=== PATIENT | female | born 1950 | race Caucasian/White ===

== ENCOUNTER 2016-08-22 15:02 | Inpatient (IN) | payer MEDICARE, OTHER ==
[~2016-08-22] VITALS: Ht 157.5 cm; Wt 97.0 kg
[~2016-08-22 15:02] MED LIST: /ESOM40CA; /INSULEV; ACET65TA; ADVAIR; ALLO10TA PO; AMILORIDE; ASPI1TAB PO; BETA GLUCAN; BONIVA; CALCCHW12 OR; CALCIUM; CELL500T PO; CELLCEPT; CIPR500T3 PO; CLIN300C OR; COLA100C2; CYCL10TA PO; DEMA100T OR; DEMA20TA; DIOV160T5; DIOV160T6 PO; DIOV320T; DRIS50002 PO; DRISDOL; FERR324T5 OR; FERR325T PO; FLUO1TAB3 PO; GABA600T PO; GLUC1CAP9 PO; IMMUNOGLOBULIN; IMMUNOGLOBULIN IV; INSUDET SC; INSUH10VL SC; LEVEMIR INSULIN; MAG-TAB; META28PO PO; MULTIVIT OR; NEXI40CA PO; NOVOINJ3; POTA-77; PRED10TA2 OR; PRED1TABL PO; PRED20TA; PRED5TA PO; PREDPOW10; PROZ20CA; SUCR1SS PO; TORS100T12 PO; TYLENOL ES; VIT D; VITA10002 PO; VITA500T88 PO; VITAMIN B 12; VITMTA PO; XOPE1.252; ZANT150T; ZANT1TAB PO; ZARO2.5T OR; [UNRECOGNIZED DRUG - CODE]; [UNRECOGNIZED DRUG - OTHER]; [UNRECOGNIZED DRUG - OTHER]; amiloride PO; beta glucan OR; boniva IV; cranberry; flaxseed oil; imodium OR; levemir SQ; metamucil; omega 3
[2016-08-22] MEDS ORDERED: METOPROLOL 5 MG/5 ML VIAL As Ordered ONE (15:48)
[2016-08-22 15:52] LABS: BASO % 0.1 % (0.0-1.0); EOS % 0.1 % (0.0-3.0); LARGE UNSTAINED CELL # 0.1 K/mm3 (0.0-0.4); LARGE UNSTAINED CELL % 0.7 % (0.0-4.0); LYMPH # 0.4 K/mm3 (1.5-4.5); LYMPH % 4.1 % (24.0-44.0); MEAN CORPUSCULAR HEMOGLOBIN 27.3 pg (27.0-33.0); MEAN CORPUSCULAR HGB CONC 30.1 g/dl (32.0-36.5); MEAN CORPUSCULAR VOLUME 90.8 fl (80.0-96.0); MONO # 0.3 K/mm3 (0.0-0.8); MONO % 3.1 % (0.0-5.0); NEUTROPHILS # 8.8 K/mm3 (1.8-7.7); PLATELET COUNT, AUTOMATED 208 k/mm3 (150-450); RED CELL DISTRIBUTION WIDTH 14.2 % (11.5-14.5); WHITE BLOOD COUNT 9.5 K/mm3 (4.0-10.0)
[2016-08-22 15:58] LABS: INR 0.96
[2016-08-22 16:09] LABS: CALCIUM LEVEL 9.8 MG/DL (8.8-10.2); CREATININE FOR GFR 1.74 MG/DL (0.55-1.02); GLOMERULAR FILTRATION RATE 31.3 (>45); MAGNESIUM LEVEL 2.5 MG/DL (1.8-2.4); POTASSIUM SERUM 4.8 MEQ/L (3.5-5.1); THYROXINE (T4) 4.6 UG/DL (4.5-12.0)
[2016-08-22] MEDS ORDERED: METOPROLOL TART 25 MG TABLET As Ordered ONE (16:09)
[2016-08-22] MEDS ORDERED: FUROSEMIDE 40 MG/4 ML VIAL (J1940) As Ordered ONE (16:41)
[2016-08-22] MEDS ORDERED: NITROGLYCERIN 2% OINT 1 GM *U/D* PKT As Ordered ONE (16:41)
[2016-08-22] MEDS ORDERED: FURO40TA2 PO (18:00)
[2016-08-22] MEDS ORDERED: ONDANSETRON 4MG/2ML VIAL (J2405) IV PRN (18:00)
[2016-08-22] MEDS ORDERED: ACETAMINOPHEN TAB 650MG DOSE (2X325MG) PO PRN (18:00)
[2016-08-22] MEDS ORDERED: PRED10TA PO (18:00)
[2016-08-22] MEDS ORDERED: RECL5INJ2 IV (18:00)
[2016-08-22] MEDS ORDERED: DIGOXIN INJ 0.5 MG/2 ML AMP (J1160) As Ordered ONE (18:01)
[2016-08-22] MEDS ORDERED: PERC5TAB6 PO (18:02)
[2016-08-22] MEDS ORDERED: BACT800T5 PO (18:02)
[2016-08-22] MEDS ORDERED: GLUCAGON FOR INJ 1 MG VIAL (J1610) SC PRN (18:15)
[2016-08-22] MEDS ORDERED: GLUCOSE 4 GM CHEW TABLET PO PRN (18:15)
[2016-08-22] MEDS ORDERED: DEXTROSE 50% 50 ML SYRINGE IV PRN (18:15)
--- NOTE | 2016-08-22 18:53 | REP ---
CHEST, ONE VIEW: HISTORY: Chest pain. COMPARISON: 05/03/2016. A diffuse increase in interstitial markings is present in the lungs consistent with chronic interstitial fibrosis. The cardiac silhouette is enlarged. The pulmonary vasculature is prominent. An Uqtqoa-G-Eebr catheter is present in the superior vena cava. IMPRESSION: 1. Chronic interstitial fibrosis. 2. Cardiomegaly. Signed by Ishmael Walter MD 08/22/2016 06:55 P
[2016-08-22] MEDS ORDERED: AMIODARONE HCL 150 MG in APPROPRIATE DILUENT 1 EA IV ONE (19:30)
[2016-08-22] MEDS ORDERED: AMIODARONE HCL 150 MG/100 ML PREMIXED BAG (NEXTERONE) As Ordered ONE (19:35)
[2016-08-22] MEDS ORDERED: AMIODARONE HCL 360 MG/200 ML PREMIXED BAG (NEXTERONE) As Ordered ONE (19:54)
[2016-08-22] MEDS ORDERED: AMIODARONE HCL 360 MG in APPROPRIATE DILUENT 1 EA IV SCH (20:00)
[2016-08-22 20:41] LABS: ALBUMIN 3.1 GM/DL (3.2-5.2); ALBUMIN/GLOBULIN RATIO 0.94 (1.00-1.93); BILIRUBIN,DIRECT 0.1 MG/DL (0.0-0.2); BILIRUBIN,TOTAL 0.4 MG/DL (0.2-1.0); MAGNESIUM LEVEL 2.8 MG/DL (1.8-2.4); TOTAL PROTEIN 6.4 GM/DL (6.4-8.2)
[2016-08-22] MEDS: HumaLOG INSULIN (NovoLOG) PER UNIT SC SCH (21:00)
--- NOTE | 2016-08-22 21:28 | EDDOCDS ---
Physician Documentation [facility] Name: Allyson Martinez Age: 66 yrs Sex: Female : 1950 Arrival Date: 08/22/2016 Time: 15:02 Bed 1 Private MD: Siva Allen Disposition: 08/22/16 17:20 Hospitalization ordered by Domenic Cuevas for Inpatient Admission. Preliminary diagnosis are Tachycardia, unspecified, Chronic combined systolic (congestive) and diastolic (congestive) heart failure, Renal tubulo-interstitial disease, unspecified. - Bed requested for M ICU. - Status is Inpatient Admission. jmb - Condition is Stable. - Problem is an ongoing problem. - Symptoms have improved. Historical: - Allergies: Canasa; Erythromycin; Gemfibrozil; Lipitor; PENICILLINS (Rash); steroids; TETRACYCLINES; Tussionex Pennkinetic ER; Zocor; - Home Meds: 1. amitriptyline 10 mg Oral tab 1 tab daily for Fibromyalgia 2. Carafate 1 gram Oral tab 1 gram 4 times per day 3. Drisdol 50,000 unit Oral cap 1 cap monthly 4. ferrous sulfate 324 mg (65 mg iron) Oral TbEC twice a day 5. gabapentin 600 mg oral tab three times a day 6. prednisone 60 mg Oral tab once daily 7. Oxygen 3L daily 8. insulin levemir 55 unit daily 9. Novolog 100 unit/mL Sub-Q soln sliding scale 10. Metamucil Smooth Texture Oral pack daily 11. Zantac 150 mg Oral tab 1 tab once daily 12. Lasix 40 mg Oral tab 1 tab once daily 13. aspirin 81 mg Oral tab 1 tab once daily 14. allopurinol 100 mg Oral tab 2 tabs once daily 15. CellCept 500 mg Oral tab 2 tabs 2 TABS IN AM AND 1 TAB IN PM 16. Prozac 20 mg Oral cap 1 cap once daily 17. Reclast 5 mg/100 mL intravenous soln YEARLY 18. Xopenex 1.25 mg/3 mL Nebulizer nebu 3 mL 3 times per day 19. Valtrex 500 mg Oral tab 2 tabs 3 times per day 20. Percocet 5-325 mg Oral tab 1 tab every 8 hours - PMHx: Anemia; Antisynthetase Syndrome; aortic stenosis; Degenerative disc disease; Diabetes - IDDM: controlled; Fibromyalgia; Hiatal Hernia; Interstitial Lung Fibrosis; Osteoarthritis; Polymyositis; Shingles; Sinus Tarsi Syndrome; Sleep Apnea w/ CPAP; - PSHx: TRANS CATHETER AORTA VALVE REPLACEMENT; Tonsillectomy; Cholecystectomy; Arthroscopy, Knee- Right; Cataract Surgery- Bilateral; - Social history: Smoking status: Patient states was never smoker of tobacco. No barriers to communication noted, The patient speaks fluent Mauritian. - Family history: Not pertinent. - : The pt / caregiver states he / she is not on anticoagulants. Home medication list is obtained from the patient. - Exposure Risk Screening:: None identified. Vital Signs: 08/22 15:19 BP 146 / 66; Pulse 148; Resp 22; Temp 99.1(O); Pulse Ox 95% on 3 lpm NC; Weight 100.7 ct3 kg / 222.01 lbs (R); Height 5 ft. 2 in. (157.48 cm); Pain 0/10; 15:45 BP 169 / 72 (auto/); js13 15:45 Pulse 148 MON; Resp 18; Pulse Ox 97% on 3 lpm NC; js13 15:51 Pulse 148 MON; Resp 18; Pulse Ox 97% on 3 lpm NC; js13 15:52 BP 177 / 69 (auto/); js13 15:55 Pulse 147; js13 15:59 BP 156 / 73 (auto/); js13 15:59 Pulse 145 MON; Resp 18; Pulse Ox 97% on 3 lpm NC; js13 15:59 Pulse 145; js13 16:04 BP 148 / 66 (auto/); js13 16:04 Pulse 144 MON; Resp 18; Pulse Ox 96% on 3 lpm NC; js13 16:05 Pulse 143; js13 16:09 BP 140 / 63 (auto/); js13 16:09 Pulse 143 MON; Resp 15; Pulse Ox 97% on 3 lpm NC; js13 16:14 BP 141 / 66 (auto/); js13 16:14 Pulse 143 MON; Resp 20; Pulse Ox 96% on 3 lpm NC; js13 16:19 BP 132 / 60 (auto/); js13 16:19 Pulse 143 MON; Resp 20; Pulse Ox 97% on 3 lpm NC; js13 16:24 BP 129 / 60 (auto/); js13 16:24 Pulse 142 MON; Resp 20; Pulse Ox 97% on 3 lpm NC; js13 16:29 BP 132 / 64 (auto/); js13 16:29 Pulse 141 MON; Resp 20; Pulse Ox 96% on 3 lpm NC; js13 16:34 BP 127 / 61 (auto/); js13 16:34 Pulse 142 MON; Resp 20; Pulse Ox 96% on 3 lpm NC; js13 16:39 BP 136 / 65 (auto/); js13 16:39 Pulse 144 MON; Resp 20; Pulse Ox 97% on 3 lpm NC; js13 16:44 BP 142 / 72 (auto/); js13 16:44 Pulse 144 MON; Resp 20; Pulse Ox 97% on 3 lpm NC; js13 16:49 BP 150 / 75 (auto/); js13 16:49 Pulse 142 MON; Resp 20; Pulse Ox 97% on 3 lpm NC; js13 16:54 BP 135 / 67 (auto/); js13 16:54 Pulse 143 MON; Resp 20; Pulse Ox 97% on 3 lpm NC; js13 16:59 BP 136 / 68 (auto/); js13 16:59 Pulse 144 MON; Resp 20; Pulse Ox 97% on 3 lpm NC; js13 17:04 BP 138 / 76 (auto/); js13 17:04 Pulse 143 MON; Resp 20; Pulse Ox 96% on 3 lpm NC; js13 17:09 BP 137 / 73 (auto/); js13 17:09 Pulse 144 MON; Resp 20; Pulse Ox 97% on 3 lpm NC; js13 17:14 BP 154 / 67 (auto/); js13 17:14 Pulse 142 MON; Resp 20; Pulse Ox 97% on 3 lpm NC; js13 17:19 BP 148 / 69 (auto/); js13 17:19 Pulse 144 MON; Resp 20; Pulse Ox 96% on 3 lpm NC; js13 17:24 BP 142 / 67 (auto/); js13 17:24 Pulse 143 MON; Resp 20; Pulse Ox 96% on 3 lpm NC; js13 17:29 BP 143 / 70 (auto/); js13 17:29 Pulse 142 MON; Resp 20; Pulse Ox 96% on 3 lpm NC; js13 17:34 BP 136 / 98 (auto/); js13 17:34 Pulse 142 MON; Resp 20; Pulse Ox 97% on 3 lpm NC; js13 17:44 BP 139 / 70 (auto/); js13 17:44 Pulse 143 MON; Pulse Ox 96% ; js13 17:49 BP 140 / 72 (auto/); js13 17:49 Pulse 142 MON; js13 17:54 BP 139 / 68 (auto/); js13 17:54 Pulse 143 MON; js13 17:59 BP 149 / 68 (auto/); js13 17:59 Pulse 143 MON; Pulse Ox 97% ; js13 18:04 BP 150 / 67 (auto/); js13 18:04 Pulse 141 MON; Pulse Ox 97% ; js13 18:09 BP 145 / 65 (auto/); js13 18:09 Pulse 138 MON; Pulse Ox 96% ; js13 18:14 BP 160 / 86 (auto/); js13 18:14 Pulse 139 MON; Pulse Ox 96% ; js13 18:19 BP 152 / 70 (auto/); js13 18:19 Pulse 138 MON; Pulse Ox 98% ; js13 18:24 BP 153 / 71 (auto/); js13 18:24 Pulse 141 MON; Pulse Ox 97% ; js13 18:29 BP 148 / 72 (auto/); js13 18:29 Pulse 142 MON; Pulse Ox 98% ; js13 18:34 BP 153 / 74 (auto/); js13 18:34 Pulse 142 MON; Pulse Ox 97% ; js13 18:39 BP 164 / 72 (auto/); js13 18:39 Pulse 141 MON; Pulse Ox 97% ; js13 18:44 BP 142 / 66 (auto/); js13 18:44 Pulse 135 MON; Resp 24; Pulse Ox 93% ; logan 18:49 BP 156 / 58 (auto/); js13 18:49 Pulse 138 MON; Resp 18; Pulse Ox 94% on 3 lpm NC; js13 19:10 Pulse 139 MON; Resp 28 S; Pulse Ox 96% ; logan 19:15 BP 157 / 67 (auto/); logan 19:56 Pulse 97; logan 20:01 BP 186 / 98 (auto/); Pulse 92; Resp 22; Pulse Ox 95% on 3 lpm NC; logan 21:02 Pulse 99 MON; Resp 22 S; Pulse Ox 98% ; logan 21:03 BP 180 / 79 (auto/); logan 15:19 Body Mass Index 40.60 (100.70 kg, 157.48 cm) ct3 MDM: 15:06 Women'S Studies Lecturer/Pulse Ox/q 30 min VS ordered. sd1 15:06 IV Saline Lock ordered. sd1 15:06 Rhythm Strip to chart ordered. sd1 15:06 Undress patient appropriately for examination ordered. sd1 15:07 portable chest Ordered. EDMS 15:07 Basic Metabolic Profile Ordered. EDMS 15:08 CBC with Diff Ordered. EDMS 15:08 Cardiac Injury Profile Ordered. EDMS 15:08 Prothrombin Time Profile\E\INR Ordered. EDMS 15:08 Troponin Ordered. EDMS 15:08 Thyroid Profile Ordered. EDMS 15:08 ECG WITH READING ER PHYS+CARDIAG ordered. EDMS 15:27 MAGNESIUM LEVEL Ordered. EDMS 15:37 Metoprolol 5 mg IVP every 5 minutes; Hold for SBP < 100 or HR < 60. x3 ordered. bs6 16:05 Metoprolol (Tartrate) 50 mg PO once ordered. bs6 16:19 [facility] Patient Registration Supervisor Order ordered. bs6 16:27 Basic Metabolic Profile Reviewed. sd1 16:27 CBC with Diff Reviewed. sd1 16:27 Cardiac Injury Profile Reviewed. sd1 16:27 Troponin Reviewed. sd1 16:27 MAGNESIUM LEVEL Reviewed. sd1 16:27 Prothrombin Time Profile\E\INR Reviewed. sd1 16:27 Thyroid Profile Reviewed. sd1 16:28 Nitro-Bid Ointment 2 % 1 inches Transdermal once ordered. sd1 16:40 Furosemide 40 mg IVP once ordered. cs11 17:03 [facility] Patient Registration Supervisor Order complete. lbd 17:10 BED REQUEST+ADM ordered. EDMS 17:11 CARDIAC MARKER PANEL Ordered. EDMS 17:23 Financial registration complete. ks16 17:56 Admission / Observation Status ordered. EDMS 17:56 CARDIAC MARKER PANEL Ordered. EDMS 17:57 Digoxin 0.5 mg IVP once ordered. cs11 18:15 PHYSICAL THERAPY EVAL & TREAT ordered. EDMS 18:15 CPAP INPATIENT ordered. EDMS 18:19 [facility] Payment Agreement was scanned into [employer] and attached to record. ks16 18:22 CARDIAC DIET - DASH ordered. EDMS 18:24 RENAL US Ordered. EDMS 18:25 ELECTROCARDIOGRAM ADULT ordered. EDMS 18:25 URINALYSIS Ordered. EDMS 18:25 URINE CULTURE Ordered. EDMS 18:29 ECHOCARD,DOPPLER/COLOR FLOW ordered. EDMS 18:29 BRAIN NATIURETIC PEPTIDE Ordered. EDMS 18:40 LIVER PROFILE Ordered. EDMS 18:42 SODIUM,RANDOM URINE Ordered. EDMS 18:42 CREATININE,RANDOM URINE Ordered. EDMS 18:42 BLOOD CULTURES Ordered. EDMS 18:42 BLOOD CULTURES Ordered. EDMS 19:15 MAGNESIUM LEVEL Ordered. EDMS 19:32 COMPLETE BLOOD COUNT Ordered. EDMS 19:32 RENAL PROFILE Ordered. EDMS 19:46 amiodarone 150 mg IVP once ordered. logan 19:53 amiodarone- Slow load (1mg/min) 360 mg IV at 33 mL/hr continuous over 6 hrs; logan 360mg/200mL D5W ordered. 20:11 BRAIN NATIURETIC PEPTIDE Ordered. EDMS 20:32 CARDIAC MARKER PANEL Ordered. EDMS Administered Medications: 15:50 Drug: Metoprolol 5 mg [metoprolol 5 mg/5 mL intravenous solution (5 mL)] Route: IVP; [facility] Site: right antecubital; 15:55 Drug: Metoprolol 5 mg [metoprolol 5 mg/5 mL intravenous solution (5 mL)] Route: IVP; [facility] Site: right antecubital; 15:55 Follow up: Pulse 147 bpm; Response: Cardiac Rhythm is unchanged [facility] 15:59 Follow up: Pulse 145 bpm; Response: Cardiac Rhythm is unchanged [facility] 16:00 Drug: Metoprolol 5 mg [metoprolol 5 mg/5 mL intravenous solution (5 mL)] Route: IVP; [facility] Site: right antecubital; 16:05 Follow up: Pulse 143 bpm; Response: Cardiac Rhythm is unchanged [facility] 16:11 Drug: Metoprolol 50 mg [metoprolol tartrate 25 mg tablet (2 tabs)] Route: PO; [facility] 16:44 Drug: Nitro-Bid 1 inches [Nitro-Bid 2 % transdermal ointment (1 inches)] Route: [facility] Transdermal; Site: anterior chest wall; 16:45 Drug: Furosemide 40 mg [furosemide 10 mg/mL injection solution (4 mL)] Route: IVP; [facility] Site: right antecubital; 18:03 Drug: Digoxin 0.5 mg [digoxin 250 mcg/mL injection solution (2 mL)] Route: IVP; Site: [facility] right antecubital; 19:46 Drug: amiodarone 150 mg [amiodarone 150 mg/100 mL (1.5 mg/mL) in dextrose, iso-osmotic logan IV (100 mL)] Route: IVP; Site: right antecubital; 19:56 Follow up: Pulse [address] [facility] 19:59 Drug: amiodarone- Slow load (1mg/min) 360 mg [amiodarone 360 mg/200 mL (1.8 mg/mL) in logan dextrose, iso-osmotic IV] Route: IV; Rate: 33 mL/hr; Infused Over: 6 hrs; Site: right antecubital; Signatures: Dispatcher [employer] EDMS Rubi Armstrong MD MD sd1 Sharita Kelsey, [employer] lbd Celina GottliebRN Cici Muñoz casRN STEVO js13 Paul Braun, DO DO cs11 Trevon Pierre RN RN jmb Schoeneman, Brogan, DO DO bs6 Kristin Kaiser RN Maria T Duarte mem, Reg Reg ks16 The chart was reviewed and I authenticate all verbal orders and agree with the evaluation and treatment provided.Corrections: (The following items were deleted from the chart) 15:28 15:08 MAGNESIUM LEVEL+LAB ordered. EDMS EDMS 18:22 17:56 REGULAR DIET ordered. EDMS EDMS 19:14 18:29 MAGNESIUM LEVEL ordered. EDMS EDMS 20:12 19:32 DIGOXIN LEVEL ordered. EDMS EDMS 20:32 19:31 CARDIAC MARKER PANEL ordered. EDMS EDMS Attachments: 18:19 [facility] Payment Agreement [email or web address]
--- NOTE | 2016-08-22 21:29 | EDDOCDS ---
Nurse's Notes [facility] Name: Allyson Martinez Age: 66 yrs Sex: Female : 1950 Arrival Date: 08/22/2016 Time: 15:02 Bed 1 Private MD: Siva Allen Diagnosis: Tachycardia, unspecified;Chronic combined systolic (congestive) and diastolic (congestive) heart failure;Renal tubulo-interstitial disease, unspecified Presentation: 08/22 15:08 Presenting complaint: EMS states: Patient was seen at Dr Rosario office for a js13 wellness visit and was sent to ER for evaluation for tachycardia HR in 140's. Patient states more shaky than normal. Suicide/Homicide risk assessment- the patient denies having any suicidal and/or homicidal ideations and does not present with any other emotional, behavioral or mental health complaints. Status: Patient is not a territory service representative or dependent. Transition of care: patient was received from a primary care office; Dr Allen. Care prior to arrival: See EMS report. Saline lock initiated. Oxygen administered by EMS. 15:08 Method Of Arrival: Ambulance 13 15:08 Acuity: KYUNG Level 2 js13 15:21 Adult Sepsis Screening: The patient does not have new or worsening altered mentation. js13 Patient's respiratory rate is less than 22. Systolic blood pressure is greater than 100. Patient has a qSOFA score of 0- Negative Sepsis Screen. Triage Assessment: 15:21 General: Appears in no apparent distress, Behavior is appropriate for age, cooperative. js13 Pain: Denies pain. The patient is triaged at the bedside. See Assessment in Nurses Notes section of ED record. Neurological: Level of Consciousness is awake, alert. Cardiovascular: Rhythm is SVT Chest pain is denied. Respiratory: Airway is patent Respiratory effort is even, unlabored, Respiratory pattern is regular, symmetrical, Breath sounds are diminished. Derm: Skin is pink, warm & dry. Historical: - Allergies: Canasa; Erythromycin; Gemfibrozil; Lipitor; PENICILLINS (Rash); steroids; TETRACYCLINES; Tussionex Pennkinetic ER; Zocor; - Home Meds: 1. amitriptyline 10 mg Oral tab 1 tab daily for Fibromyalgia 2. Carafate 1 gram Oral tab 1 gram 4 times per day 3. Drisdol 50,000 unit Oral cap 1 cap monthly 4. ferrous sulfate 324 mg (65 mg iron) Oral TbEC twice a day 5. gabapentin 600 mg oral tab three times a day 6. prednisone 60 mg Oral tab once daily 7. Oxygen 3L daily 8. insulin levemir 55 unit daily 9. Novolog 100 unit/mL Sub-Q soln sliding scale 10. Metamucil Smooth Texture Oral pack daily 11. Zantac 150 mg Oral tab 1 tab once daily 12. Lasix 40 mg Oral tab 1 tab once daily 13. aspirin 81 mg Oral tab 1 tab once daily 14. allopurinol 100 mg Oral tab 2 tabs once daily 15. CellCept 500 mg Oral tab 2 tabs 2 TABS IN AM AND 1 TAB IN PM 16. Prozac 20 mg Oral cap 1 cap once daily 17. Reclast 5 mg/100 mL intravenous soln YEARLY 18. Xopenex 1.25 mg/3 mL Nebulizer nebu 3 mL 3 times per day 19. Valtrex 500 mg Oral tab 2 tabs 3 times per day 20. Percocet 5-325 mg Oral tab 1 tab every 8 hours - PMHx: Anemia; Antisynthetase Syndrome; aortic stenosis; Degenerative disc disease; Diabetes - IDDM: controlled; Fibromyalgia; Hiatal Hernia; Interstitial Lung Fibrosis; Osteoarthritis; Polymyositis; Shingles; Sinus Tarsi Syndrome; Sleep Apnea w/ CPAP; - PSHx: TRANS CATHETER AORTA VALVE REPLACEMENT; Tonsillectomy; Cholecystectomy; Arthroscopy, Knee- Right; Cataract Surgery- Bilateral; - Social history: Smoking status: Patient states was never smoker of tobacco. No barriers to communication noted, The patient speaks fluent Japanese. - Family history: Not pertinent. - : The pt / caregiver states he / she is not on anticoagulants. Home medication list is obtained from the patient. - Exposure Risk Screening:: None identified. Screenin:23 Screening information is obtained from the patient. Fall risk: At risk due to age. js13 Assistance ADL's: requires no assistance with activities of daily living. Abuse/DV Screen: The patient / caregiver reports he/she is: not in a situation that causes fear, pain or injury. Nutritional screening: No deficits noted. Advance Directives: There is an active DNR order but there is no copy available at this time. home support is adequate. Assessment: 15:24 General: Appears in no apparent distress, Behavior is appropriate for age, cooperative. js13 Pain: Denies pain. Neurological: Level of Consciousness is awake, alert. Cardiovascular: Rhythm is SVT Chest pain is denied. Respiratory: Airway is patent Respiratory effort is even, unlabored, Respiratory pattern is regular, symmetrical, Breath sounds are diminished. Derm: Skin is pink, warm & dry. 16:12 General: Appears in no apparent distress, comfortable, Behavior is appropriate for age, js13 cooperative. Pain: Denies pain. Neurological: Level of Consciousness is awake, alert. Cardiovascular: Rhythm is sinus tachycardia Chest pain is denied. Respiratory: Airway is patent Respiratory effort is even, unlabored, Respiratory pattern is regular, symmetrical. Derm: Skin is pink, warm & dry. 17:37 Adult Sepsis Screening: The patient does not have new or worsening altered mentation. js13 Patient's respiratory rate is less than 22. Systolic blood pressure is greater than 100. Patient has a qSOFA score of 0- Negative Sepsis Screen. General: Appears in no apparent distress, Behavior is appropriate for age, cooperative. Pain: Denies pain. Neurological: Level of Consciousness is awake, alert. Cardiovascular: Rhythm is regular Chest pain is denied. Respiratory: Airway is patent Respiratory effort is even, unlabored, Respiratory pattern is regular, symmetrical, Breath sounds are diminished. Derm: Skin is pink, warm & dry. 18:54 General: Appears in no apparent distress, comfortable, Behavior is appropriate for age, js13 cooperative. General: Patient back from ultrasound.. Pain: Denies pain. Neurological: Level of Consciousness is awake, alert. Cardiovascular: Rhythm is regular Chest pain is denied. Respiratory: Airway is patent Respiratory effort is even, unlabored, Respiratory pattern is regular, symmetrical, Breath sounds are diminished. Derm: Skin is pink, warm & dry. 19:15 Reassessment: Patient denies pain at this time. Cardiovascular: Rhythm is atrial logan flutter. Respiratory: Respiratory effort is labored, Respiratory pattern is regular, symmetrical, Breath sounds are diminished bilaterally. Parent/caregiver reports the patient having shortness of breath on exertion. Derm: Skin is diaphoretic, Skin is pale. 20:00 Reassessment: Patient appears in no apparent distress at this time. Pt is comfortable logan as long as she doesn't exert herself. Dr. Rosario has been in and pt examined.. Cardiovascular: Rhythm is atrial flutter 2:1. Respiratory: Respiratory effort is even, unlabored, Respiratory pattern is symmetrical. Derm: Skin is pale, Skin temperature is cool. 20:45 General: Appears in no apparent distress, comfortable. Neurological: No deficits noted. logan Cardiovascular: Rhythm is atrial flutter rates in 90's following Amiodarone bolus. Respiratory: Respiratory effort is even, unlabored. GI: Abdomen is non- distended Denies nausea, vomiting, pain. Derm: Skin is pink, warm & dry. 21:10 General: Appears in no apparent distress, comfortable, Dr. Coleman notified of vitals and logan current condition.. Cardiovascular: Rhythm is atrial flutter 90's. Respiratory: Airway is patent Respiratory effort is even, unlabored. Derm: Skin is pink, warm & dry. Skin temperature is. Vital Signs: 15:19 BP 146 / 66; Pulse 148; Resp 22; Temp 99.1(O); Pulse Ox 95% on 3 lpm NC; Weight 100.7 ct3 kg (R); Height 5 ft. 2 in. (157.48 cm); Pain 0/10; 15:45 BP 169 / 72 (auto/); js13 15:45 Pulse 148 MON; Resp 18; Pulse Ox 97% on 3 lpm NC; js13 15:51 Pulse 148 MON; Resp 18; Pulse Ox 97% on 3 lpm NC; js13 15:52 BP 177 / 69 (auto/); js13 15:55 Pulse 147; js13 15:59 BP 156 / 73 (auto/); js13 15:59 Pulse 145 MON; Resp 18; Pulse Ox 97% on 3 lpm NC; js13 15:59 Pulse 145; js13 16:04 BP 148 / 66 (auto/); js13 16:04 Pulse 144 MON; Resp 18; Pulse Ox 96% on 3 lpm NC; js13 16:05 Pulse 143; js13 16:09 BP 140 / 63 (auto/); js13 16:09 Pulse 143 MON; Resp 15; Pulse Ox 97% on 3 lpm NC; js13 16:14 BP 141 / 66 (auto/); js13 16:14 Pulse 143 MON; Resp 20; Pulse Ox 96% on 3 lpm NC; js13 16:19 BP 132 / 60 (auto/); js13 16:19 Pulse 143 MON; Resp 20; Pulse Ox 97% on 3 lpm NC; js13 16:24 BP 129 / 60 (auto/); js13 16:24 Pulse 142 MON; Resp 20; Pulse Ox 97% on 3 lpm NC; js13 16:29 BP 132 / 64 (auto/); js13 16:29 Pulse 141 MON; Resp 20; Pulse Ox 96% on 3 lpm NC; js13 16:34 BP 127 / 61 (auto/); js13 16:34 Pulse 142 MON; Resp 20; Pulse Ox 96% on 3 lpm NC; js13 16:39 BP 136 / 65 (auto/); js13 16:39 Pulse 144 MON; Resp 20; Pulse Ox 97% on 3 lpm NC; js13 16:44 BP 142 / 72 (auto/); js13 16:44 Pulse 144 MON; Resp 20; Pulse Ox 97% on 3 lpm NC; js13 16:49 BP 150 / 75 (auto/); js13 16:49 Pulse 142 MON; Resp 20; Pulse Ox 97% on 3 lpm NC; js13 16:54 BP 135 / 67 (auto/); js13 16:54 Pulse 143 MON; Resp 20; Pulse Ox 97% on 3 lpm NC; js13 16:59 BP 136 / 68 (auto/); js13 16:59 Pulse 144 MON; Resp 20; Pulse Ox 97% on 3 lpm NC; js13 17:04 BP 138 / 76 (auto/); js13 17:04 Pulse 143 MON; Resp 20; Pulse Ox 96% on 3 lpm NC; js13 17:09 BP 137 / 73 (auto/); js13 17:09 Pulse 144 MON; Resp 20; Pulse Ox 97% on 3 lpm NC; js13 17:14 BP 154 / 67 (auto/); js13 17:14 Pulse 142 MON; Resp 20; Pulse Ox 97% on 3 lpm NC; js13 17:19 BP 148 / 69 (auto/); js13 17:19 Pulse 144 MON; Resp 20; Pulse Ox 96% on 3 lpm NC; js13 17:24 BP 142 / 67 (auto/); js13 17:24 Pulse 143 MON; Resp 20; Pulse Ox 96% on 3 lpm NC; js13 17:29 BP 143 / 70 (auto/); js13 17:29 Pulse 142 MON; Resp 20; Pulse Ox 96% on 3 lpm NC; js13 17:34 BP 136 / 98 (auto/); js13 17:34 Pulse 142 MON; Resp 20; Pulse Ox 97% on 3 lpm NC; js13 17:44 BP 139 / 70 (auto/); js13 17:44 Pulse 143 MON; Pulse Ox 96% ; js13 17:49 BP 140 / 72 (auto/); js13 17:49 Pulse 142 MON; js13 17:54 BP 139 / 68 (auto/); js13 17:54 Pulse 143 MON; js13 17:59 BP 149 / 68 (auto/); js13 17:59 Pulse 143 MON; Pulse Ox 97% ; js13 18:04 BP 150 / 67 (auto/); js13 18:04 Pulse 141 MON; Pulse Ox 97% ; js13 18:09 BP 145 / 65 (auto/); js13 18:09 Pulse 138 MON; Pulse Ox 96% ; js13 18:14 BP 160 / 86 (auto/); js13 18:14 Pulse 139 MON; Pulse Ox 96% ; js13 18:19 BP 152 / 70 (auto/); js13 18:19 Pulse 138 MON; Pulse Ox 98% ; js13 18:24 BP 153 / 71 (auto/); js13 18:24 Pulse 141 MON; Pulse Ox 97% ; js13 18:29 BP 148 / 72 (auto/); js13 18:29 Pulse 142 MON; Pulse Ox 98% ; js13 18:34 BP 153 / 74 (auto/); js13 18:34 Pulse 142 MON; Pulse Ox 97% ; js13 18:39 BP 164 / 72 (auto/); js13 18:39 Pulse 141 MON; Pulse Ox 97% ; js13 18:44 BP 142 / 66 (auto/); js13 18:44 Pulse 135 MON; Resp 24; Pulse Ox 93% ; logan 18:49 BP 156 / 58 (auto/); js13 18:49 Pulse 138 MON; Resp 18; Pulse Ox 94% on 3 lpm NC; js13 19:10 Pulse 139 MON; Resp 28 S; Pulse Ox 96% ; logan 19:15 BP 157 / 67 (auto/); logan 19:56 Pulse 97; logan 20:01 BP 186 / 98 (auto/); Pulse 92; Resp 22; Pulse Ox 95% on 3 lpm NC; logan 21:02 Pulse 99 MON; Resp 22 S; Pulse Ox 98% ; logan 21:03 BP 180 / 79 (auto/); logan 15:19 Body Mass Index 40.60 (100.70 kg, 157.48 cm) ct3 Vitals: 15:21 Log In Time N/A - ambulance arrival. js13 ED Course: 15:03 Patient visited by Sharita Kelsey, Online Marketing Strategist. lbd 15:03 Patient moved to Waiting lbd 15:04 Siva Allen is Private Physician. lbd 15:04 Cici Tovar,STEVO is Primary Nurse. lbd 15:04 Patient moved to 1 lbd 15:10 Triage Initiated js13 15:16 EKG done. (by ED staff). Reviewed by Rubi Armstrong MD. ct3 15:19 Patient has correct armband on for positive identification. Placed in gown. Bed in low ct3 position. Call light in reach. Side rails up X2. luncheonette manager on. Pulse ox on. NIBP on. 15:20 Patient visited by Mila Sheriff PCA. ct3 15:23 Racheal Houston DO is PHCP. bs6 15:23 Rubi Armstrong MD is Attending Physician. bs6 15:23 The patient / caregiver is instructed regarding the plan of care and ED course. js13 15:23 Maintain field IV. Dressing intact. Good blood return noted. Site clean & dry. Gauge & js13 site: 18 GAUGE IN LFA. No procedures done that require assistance. O2 via nasal cannula \T\ 3L/min. 15:24 Patient visited by Racheal Houston DO. bs6 15:24 Patient visited by Racheal Houston DO. bs6 15:34 MAGNESIUM LEVEL Sent. js13 15:34 Thyroid Profile Sent. js13 15:34 Basic Metabolic Profile Sent. js13 15:34 CBC with Diff Sent. js13 15:34 Cardiac Injury Profile Sent. js13 15:34 Prothrombin Time Profile\E\INR Sent. js13 15:34 Troponin Sent. js13 15:35 Inserted saline lock: 18 gauge in right antecubital area and blood collected. The js13 patient tolerated the procedure well. Labs drawn. (by ED staff). Sent per order to lab. 16:13 Patient visited by Cici Tovar RN. js13 16:39 Attending Physician role handed off by Rubi Armstrong MD cs11 16:39 Paul Braun DO is Attending Physician. cs11 17:20 Domenic Cuevas DO is Hospitalizing Provider. cs11 17:34 CARDIAC MARKER PANEL Sent. [facility] 17:41 Patient visited by Cici Tovar RN. js13 18:19 [facility] Payment Agreement was scanned into [employer] and attached to record. ks16 18:34 Patient moved to Ultrasound br3 18:56 Patient moved to 1 br3 18:58 Celina Gottlieb,STEVO is Primary Nurse. logan 19:00 portable chest Returned. EDID 19:41 Primary Nurse role handed off by Cici Tovar RN yao Administered Medications: 15:50 Drug: Metoprolol 5 mg [metoprolol 5 mg/5 mL intravenous solution (5 mL)] Route: IVP; [facility] Site: right antecubital; 15:55 Drug: Metoprolol 5 mg [metoprolol 5 mg/5 mL intravenous solution (5 mL)] Route: IVP; [facility] Site: right antecubital; 15:55 Follow up: Pulse 147 bpm; Response: Cardiac Rhythm is unchanged [facility] 15:59 Follow up: Pulse 145 bpm; Response: Cardiac Rhythm is unchanged [facility] 16:00 Drug: Metoprolol 5 mg [metoprolol 5 mg/5 mL intravenous solution (5 mL)] Route: IVP; [facility] Site: right antecubital; 16:05 Follow up: Pulse 143 bpm; Response: Cardiac Rhythm is unchanged [facility] 16:11 Drug: Metoprolol 50 mg [metoprolol tartrate 25 mg tablet (2 tabs)] Route: PO; 13 16:44 Drug: Nitro-Bid 1 inches [Nitro-Bid 2 % transdermal ointment (1 inches)] Route: [facility] Transdermal; Site: anterior chest wall; 16:45 Drug: Furosemide 40 mg [furosemide 10 mg/mL injection solution (4 mL)] Route: IVP; [facility] Site: right antecubital; 18:03 Drug: Digoxin 0.5 mg [digoxin 250 mcg/mL injection solution (2 mL)] Route: IVP; Site: js13 right antecubital; 19:46 Drug: amiodarone 150 mg [amiodarone 150 mg/100 mL (1.5 mg/mL) in dextrose, iso-osmotic logan IV (100 mL)] Route: IVP; Site: right antecubital; 19:56 Follow up: Pulse 97 bpm logan 19:59 Drug: amiodarone- Slow load (1mg/min) 360 mg [amiodarone 360 mg/200 mL (1.8 mg/mL) in logan dextrose, iso-osmotic IV] Route: IV; Rate: 33 mL/hr; Infused Over: 6 hrs; Site: right antecubital; Intake: 19:56 IV: 100.00ml; Total: 100.00ml. logan Output: 19:50 Urine: 200.00ml (Voided); Total: 200.00ml. logan Order Results: Lab Order: Basic Metabolic Profile; SPEC'M 08/22/16 15:33 Test: GLUCOSE, FASTING; Value: 297; Range: 80-110; Abnormal: Above high normal; Units: MG/DL; Status: F Test: BLOOD UREA NITROGEN; Value: 49; Range: 7-18; Abnormal: Above high normal; Units: MG/DL; Status: F Test: CREATININE FOR GFR; Value: 1.74; Range: 0.55-1.02; Abnormal: Above high normal; Units: MG/DL; Status: F Test: GLOMERULAR FILTRATION RATE; Value: 31.3; Range: >45; Abnormal: Below low normal; Status: F Test: SODIUM LEVEL; Value: 141; Range: 136-145; Units: MEQ/L; Status: F Test: POTASSIUM SERUM; Value: 4.8; Range: 3.5-5.1; Units: MEQ/L; Status: F Test: CHLORIDE LEVEL; Value: 103; Range: 98-107; Units: MEQ/L; Status: F Test: CARBON DIOXIDE LEVEL; Value: 27; Range: 21-32; Units: MEQ/L; Status: F Test: ANION GAP; Value: 11; Range: 8-16; Units: MEQ/L; Status: F Test: CALCIUM LEVEL; Value: 9.8; Range: 8.8-10.2; Units: MG/DL; Status: F Test Note: ; Units are mL/min/1.73 m2 Chronic Kidney Disease Staging per NKF: Stage I & II GFR >=60 Normal to Mildly Decreased Stage III GFR 30-59 Moderately Decreased Stage IV GFR 15-29 Severely Decreased Stage V GFR <15 Very Little GFR Left ESRD GFR <15 on LOCAL GOVERNMENT LEGISLATOR Lab Order: CBC with Diff; SPEC'M 08/22/16 15:33 Test: WHITE BLOOD COUNT; Value: 9.5; Range: 4.0-10.0; Units: K/mm3; Status: F Test: RED BLOOD COUNT; Value: 4.93; Range: 4.00-5.40; Units: M/mm3; Status: F Test: HEMOGLOBIN; Value: 13.5; Range: 12.0-16.0; Units: g/dl; Status: F Test: HEMATOCRIT; Value: 44.8; Range: 36.0-47.0; Units: %; Status: F Test: MEAN CORPUSCULAR VOLUME; Value: 90.8; Range: 80.0-96.0; Units: fl; Status: F Test: MEAN CORPUSCULAR HEMOGLOBIN; Value: 27.3; Range: 27.0-33.0; Units: pg; Status: F Test: MEAN CORPUSCULAR HGB CONC; Value: 30.1; Range: 32.0-36.5; Abnormal: Below low normal; Units: g/dl; Status: F Test: RED CELL DISTRIBUTION WIDTH; Value: 14.2; Range: 11.5-14.5; Units: %; Status: F Test: PLATELET COUNT, AUTOMATED; Value: 208; Range: 150-450; Units: k/mm3; Status: F Test: NEUTROPHILS %; Value: 92.0; Range: 36.0-66.0; Abnormal: Above high normal; Units: %; Status: F Test: LYMPH %; Value: 4.1; Range: 24.0-44.0; Abnormal: Below low normal; Units: %; Status: F Test: MONO %; Value: 3.1; Range: 0.0-5.0; Units: %; Status: F Test: EOS %; Value: 0.1; Range: 0.0-3.0; Units: %; Status: F Test: BASO %; Value: 0.1; Range: 0.0-1.0; Units: %; Status: F Test: LARGE UNSTAINED CELL %; Value: 0.7; Range: 0.0-4.0; Units: %; Status: F Test: NEUTROPHILS #; Value: 8.8; Range: 1.8-7.7; Abnormal: Above high normal; Units: K/mm3; Status: F Test: LYMPH #; Value: 0.4; Range: 1.5-4.5; Abnormal: Below low normal; Units: K/mm3; Status: F Test: MONO #; Value: 0.3; Range: 0.0-0.8; Units: K/mm3; Status: F Test: EOS #; Value: 0.0; Range: 0.0-0.50; Units: K/mm3; Status: F Test: BASO #; Value: 0.0; Range: 0.0-0.2; Units: K/mm3; Status: F Test: LARGE UNSTAINED CELL #; Value: 0.1; Range: 0.0-0.4; Units: K/mm3; Status: F Lab Order: Cardiac Injury Profile; SPEC'M 08/22/16 15:33 Test: CPK CREATINE PHOSPHOKINASE; Value: 81; Range: 26-192; Units: U/L; Status: F Test: CK-MB VALUE MASS; Value: 10.7; Range: 0.0-3.6; Abnormal: Above high normal; Units: NG/ML; Status: F Test: MB/CK RELATIVE INDEX; Value: 13.20; Range: < OR =4; Abnormal: Above high normal; Status: F Test Note: ; DIAGNOSIS CRITERIA MMB ng/ml Relative Index (RI) NON-AMI < or = 5 N/A FIGUEROA ZONE > 5 < or = 4 AMI > 5 > 4 Lab Order: Prothrombin Time Profile\E\INR; SPEC'M 08/22/16 15:33 Test: PROTHROMBIN TIME; Value: 12.9; Range: 12.3-14.5; Units: SECONDS; Status: F Test: INR; Value: 0.96; Status: F Test Note: ; THERAPUTIC HUMAN INR VALUES INDICATIONS NORMAL RANGES PROPHYLAXIS/TREATMENT OF: VENOUS THROMBOSIS 2.0-3.0 PULMONARY EMBOLISM 2.0-3.0 PREVENTION OF SYSTEMIC EMBOLISM FROM: TISSUE HEART VALVES 2.0-3.0 ACUTE MYOCARDIAL INFARCTION 2.0-3.0 VALVULAR HEART DISEASE 2.0-3.0 ATRIAL FIBRILLATION 2.0-3.0 MECHANICAL VALVES(HIGH RISK) 2.5-3.5 RECURRENT MYOCARDIAL INFARCTION 2.5-3.5 Lab Order: Troponin; [facility] 08/22/16 15:33 Test: TROPONIN I; Value: 0.76; Range: < 0.10; Abnormal: Above high normal; Units: NG/ML; Status: F Test Note: ; Troponin I Reference Interval for [employer] LOCI: 99th Percentile= 0.00-0.045 ng/ml Risk Stratification: <= 0.10 ng/ml Decreased Risk for Adverse Clinical Events. 0.10-1.50 ng/ml Increased Risk for Adverse Clinical Events. Evaluation of additional criterion and/or repeat testing in 2-6 hours is suggested to rule out myocardial damage. >= 1.50 ng/ml Indicative of Myocardial Injury. Lab Order: Thyroid Profile; [facility] 08/22/16 15:33 Test: T UPTAKE; Value: 37; Range: 30-39; Units: %; Status: F Test: THYROXINE (T4); Value: 4.6; Range: 4.5-12.0; Units: UG/DL; Status: F Test: FREE THYROXINE INDEX; Value: 1.7; Range: 1.3-4.8; Units: %; Status: F Test: THYROID STIMULATING HORMONE; Value: 0.926; Range: 0.358-3.740; Units: uIU/ML; Status: F Lab Order: MAGNESIUM LEVEL; [facility] 08/22/16 15:33 Test: MAGNESIUM LEVEL; Value: 2.5; Range: 1.8-2.4; Abnormal: Above high normal; Units: MG/DL; Status: F Lab Order: CARDIAC MARKER PANEL; [facility] 08/22/16 17:33 Test: CPK CREATINE PHOSPHOKINASE; Value: 63; Range: 26-192; Units: U/L; Status: F Test: CK-MB VALUE MASS; Value: 7.9; Range: 0.0-3.6; Abnormal: Above high normal; Units: NG/ML; Status: F Test: MB/CK RELATIVE INDEX; Value: 12.53; Range: < OR =4; Abnormal: Above high normal; Status: F Test: TROPONIN I; Value: 0.68; Range: < 0.10; Abnormal: Above high normal; Units: NG/ML; Status: F Test Note: ; DIAGNOSIS CRITERIA MMB ng/ml Relative Index (RI) NON-AMI < or = 5 N/A FIGUEROA ZONE > 5 < or = 4 AMI > 5 > 4 Lab Order: CARDIAC MARKER PANEL; SPEC'M 08/22/16 19:53 Test: CPK CREATINE PHOSPHOKINASE; Value: 69; Range: 26-192; Units: U/L; Status: F Test: CK-MB VALUE MASS; Value: 8.6; Range: 0.0-3.6; Abnormal: Above high normal; Units: NG/ML; Status: F Test: MB/CK RELATIVE INDEX; Value: 12.46; Range: < OR =4; Abnormal: Above high normal; Status: F Test: TROPONIN I; Value: 0.88; Range: < 0.10; Abnormal: High; Units: NG/ML; Status: F Test Note: ; DIAGNOSIS CRITERIA MMB ng/ml Relative Index (RI) NON-AMI < or = 5 N/A FIGUEROA ZONE > 5 < or = 4 AMI > 5 > 4 Lab Order: URINALYSIS; SPEC'M 08/22/16 19:29 Test: APPEARANCE, URINE; Value: HAZY; Range: CLEAR; Status: F Test: COLOR, URINE; Value: YELLOW; Range: YELLOW; Status: F Test: PH,URINE; Value: 5.0; Range: 5.0-9.0; Units: UNITS; Status: F Test: SPECIFIC GRAVITY URINE AUTO; Value: 1.014; Range: 1.002-1.035; Status: F Test: PROTEIN, URINE AUTO; Value: 2+; Range: NEGATIVE; Abnormal: Above high normal; Units: mg/dL; Status: F Test: GLUCOSE, URINE (UA) AUTO; Value: NEGATIVE; Range: NEGATIVE; Units: mg/dL; Status: F Test: KETONE, URINE AUTO; Value: NEGATIVE; Range: NEGATIVE; Units: mg/dL; Status: F Test: UROBILINOGEN, URINE AUTO; Value: 0.2; Range: 0.0-2.0; Units: mg/dL; Status: F Test: BILIRUBIN, URINE AUTO; Value: NEGATIVE; Range: NEGATIVE; Status: F Test: NITRITE, URINE AUTO; Value: NEGATIVE; Range: NEGATIVE; Status: F Test: LEUKOCYTE ESTERASE, URINE AUTO; Value: 2+; Range: NEGATIVE; Abnormal: Above high normal; Status: F Test: BLOOD, URINE BLOOD; Value: NEGATIVE; Range: NEGATIVE; Status: F Test: WBC, URINE AUTO; Value: 18; Range: 0-3; Abnormal: Above high normal; Units: /HPF; Status: F Test: RBC, URINE AUTO; Value: 10; Range: 0-3; Abnormal: Above high normal; Units: /HPF; Status: F Test: BACTERIA, URINE AUTO; Value: 1+; Range: NEGATIVE; Abnormal: Above high normal; Status: F Test: SQUAMOUS EPITHELIAL CELL UR AU; Value: 2; Range: 0-6; Units: /HPF; Status: F Test: TRANSITIONAL EPITHELIAL AUTO; Value: <1; Range: NONE; Units: /HPF; Status: F Test: MUCUS, URINE; Value: SMALL; Range: NEGATIVE; Status: F Test: HYALINE CAST, URINE AUTO; Value: 27; Range: 0-1; Units: /LPF; Status: F Test: AMORPHOUS SEDIMENT; Value: SMALL; Range: NEGATIVE; Abnormal: Above high normal; Status: F Lab Order: BRAIN NATIURETIC PEPTIDE; SPEC'M 08/22/16 19:05 Test: BRAIN NATRIURETIC PEPTIDE; Value: 1270; Range: <100; Abnormal: Above high normal; Units: PG/ML; Status: F Lab Order: LIVER PROFILE; SPEC'M 08/22/16 19:05 Test: AST/SGOT; Value: 42; Range: 15-37; Abnormal: Above high normal; Units: U/L; Status: F Test: ALT/SGPT; Value: 38; Range: 12-78; Units: U/L; Status: F Test: ALKALINE PHOSPHATASE; Value: 130; Range: 45-117; Abnormal: Above high normal; Units: U/L; Status: F Test: BILIRUBIN,TOTAL; Value: 0.4; Range: 0.2-1.0; Units: MG/DL; Status: F Test: BILIRUBIN,DIRECT; Value: 0.1; Range: 0.0-0.2; Units: MG/DL; Status: F Test: TOTAL PROTEIN; Value: 6.4; Range: 6.4-8.2; Units: GM/DL; Status: F Test: ALBUMIN; Value: 3.1; Range: 3.2-5.2; Abnormal: Below low normal; Units: GM/DL; Status: F Test: ALBUMIN/GLOBULIN RATIO; Value: 0.94; Range: 1.00-1.93; Abnormal: Below low normal; Status: F Lab Order: SODIUM,RANDOM URINE; SPEC'M 08/22/16 19:29 Test: SODIUM,RANDOM URINE; Value: 43; Units: MEQ/L; Status: F Lab Order: CREATININE,RANDOM URINE; SPEC'M 08/22/16 19:29 Test: CREATININE,RANDOM URINE; Value: 62.1; Units: MG/DL; Status: F Lab Order: MAGNESIUM LEVEL; SPEC'M 08/22/16 19:05 Test: MAGNESIUM LEVEL; Value: 2.8; Range: 1.8-2.4; Abnormal: Above high normal; Units: MG/DL; Status: F Radiology Order: portable chest Test: portable chest REASON FOR EXAMINATION: Chest Pain; CHEST, ONE VIEW:; ; HISTORY: Chest pain.; ; COMPARISON: 05/03/2016.; ; A diffuse increase in interstitial markings is present in the lungs consistent; with chronic interstitial fibrosis. The cardiac silhouette is enlarged. The; pulmonary vasculature is prominent. An Wvuhpd-E-Cmyi catheter is present in the; superior vena cava.; ; IMPRESSION:; ; 1. Chronic interstitial fibrosis.; ; 2. Cardiomegaly.; ; ; Signed by; Ishmael Walter MD 08/22/2016 06:55 P; Outcome: 17:20 Decision to Hospitalize by Provider. [facility] 20:58 Discharge Assessment: patient administered narcotics - no. The following High Risk logan Discharge criteria are identified: Yes, Admitted to ICU accompanied by nurse, with oxygen, on monitor, with chart. Condition: improved. No special radiology studies were completed. Property :Personal belongings accompany Pt. 21:17 Admission hand-off: Report called to [place] in ICU logan 21:27 Patient left the ED. b Signatures: Dispatcher [employer] EDMS Sharita Kelsey, Online Marketing Strategist Unit Aparna Reece RN RN kpj Sovie, Carolyn, RN RN logan Darcy Salcedo br3 Donita, Camille, REMNANT SORTER REMNANT SORTER yao Mila Sheriff, REMNANT SORTER REMNANT SORTER ct3 Cici Tovar,RN RN js13 Paul Braun, DO cs11 Trevon Pierre,RN RN jmb Racheal Houston, DO DO bs6 Maria T Torres, Reg Reg [id number] Corrections: (The following items were deleted from the chart) 20:58 18:44 Pulse 135bpm; Monitor; Pulse Ox 93%; js13 logan MTDD
--- NOTE | 2016-08-22 21:31 | CR ---
DATE OF CONSULTATION: 08/22/2016 REFERRING PHYSICIAN: Dr. Cuevas INDICATION: Atrial flutter. HISTORY OF PRESENT ILLNESS: Ms. Martinez is known to me. She is a very pleasant 66-year-old female who has a history of TAVR in 2013 and also has severe progressive pulmonary fibrosis/polymyositis with worsening performance status. She came to see her primary care physician today and was found to be in extreme degree of dyspnea and electrocardiogram revealed presence of atrial flutter with 2:1 conduction and ventricular rate approximately 150 beats per minute. She was referred to emergency room for further evaluation. In the emergency room, she was given initially three doses of IV metoprolol that seemed to have virtually no effect on her heart rate and after I spoke with the hospitalist service, she received 1/2 mg of IV digoxin. When I entered the emergency room, the patient was in extreme degree of dyspnea just trying to get from the commode to the bed. It took her several minutes of rest before she could start talking even a little bit. She tells me that she feels that the shortness of breath of this degree started just today. She denies having any chest pain, and she denies having any palpitations. She admits that she had similar episodes previously but they were never lasting this long. PAST MEDICAL HISTORY: 1. Pulmonary fibrosis/polymyositis. Followed by Dr. Rodriguez and Dr. Brigitte Augustin in [place]. The last pulmonary function tests that are available to me are from October 2015. It revealed 48% predicted FVC, 51% predicted FEV-1 and 17% of DLCO. 2. Longstanding history of hypertension. 3. Type 2 diabetes. 4. Fibromyalgia. 5. Osteopenia. 6. History of transaortic valve replacement in 2013 for severe aortic stenosis. 7. Dyslipidemia. 8. Last echocardiogram that I am aware of was in November 2013 and revealed normal function of aortic bioprosthesis and preserved left ventricular (LV) systolic function. SURGICAL HISTORY: Positive for cataract surgery, cholecystectomy, tonsillectomy, adenoidectomy and TAVR. MEDICATIONS: Outpatient medications are positive for lactobacillus capsules, aspirin 81 mg, allopurinol 100 mg twice a day, vitamin B12, calcium with vitamin D, sucralfate three times a day, CellCept 2 grams a day, clindamycin as needed before dental work, Colace, cranberry capsules, iron sulfate twice a day, furosemide 40 mg A day, gabapentin three times a day, glucosamine/chondroitin two tablets a day, insulin, magnesium, Metamucil, multivitamin, Nexium 40 mg a day, Prozac 20 mg a day, Reclast once a year, Xopenex, Zantac and vitamin C. ALLERGIES: She reports numerous allergies that include PENICILLIN, ERYTHROMYCIN, CANASA, GEMFIBROZIL, ZOCOR, LIPITOR, TETRACYCLINE, STEROIDS AND TUSSIONEX. SOCIAL HISTORY: The patient is single. She lives with her 91-year-old father who provides most of the help. She never smoked. She does not drink alcohol. FAMILY HISTORY: Her father has history of prostate cancer. Her mother at the age of 81 of unclear reasons (so called old age). Her sister has rheumatoid arthritis. REVIEW OF SYSTEMS: She denies any unusual events lately. She does admit that she has slowly but relentlessly progressive dyspnea. Even at home, she is basically bedridden and does minimal ambulation due to extreme shortness of breath. She denies any bleeding complications. She denies any palpitations. No syncope. No chest pain. No change in her abdominal bloating. No nausea, vomiting, diarrhea and the rest of the review of systems is negative. PHYSICAL EXAMINATION: The patient is in emergency room bed. After a few minutes of rest, she is able to talk in brief sentences, is alert and oriented and appropriate. Blood pressure was 152/65, heart rate is in 130s, it is atrial flutter with variable conduction. Saturation is in low 90s on 2 liters of oxygen by nasal cannula. Her jugular venous pressure (JVP) is difficult to assess due to her cushingoid features, but I do not appreciate any gross JVP elevation. Lungs are surprisingly somewhat almost clear to auscultation with only faint end inspiratory crackles consistent with pulmonary fibrosis. Heart exam reveals somewhat muffled heart sounds due to her obesity, but it reveals irregular tachycardia. I do not appreciate any murmur at the apex, but there is approximately 2/6 intensity systolic ejection murmur at the base radiating towards her throat. Abdomen is obese but soft. There is no significant peripheral edema. Peripheral pulses are palpable. She is profoundly diaphoretic, but otherwise I do not see any skin lesions. LABORATORY: Her basic metabolic panel reveals sodium 141, potassium 4.8, BUN 49, creatinine 1.7 for a GFR of 31, glucose 297, magnesium 2.5. CBC: Hemoglobin 13.5, hematocrit 44.8 and platelet count 208,000. Urine is positive for 2+ protein. ECG reveals presence of left anterior fascicular hemiblock, likely left ventricular hypertrophy and atrial flutter with 2:1 conduction. Troponin is elevated. The initial one was 0.76, the second one was 0.68. Her BNP was 1270. TSH 0.9. IMAGING STUDIES: The chest x-ray is consistent with pulmonary fibrosis. It is difficult to rule out possible superimposed congestive heart failure. ASSESSMENT/PLAN: Ms. Martinez is an 66-year-old female who has very advanced pulmonary fibrosis and polymyositis. She presents with extreme degree of dyspnea with newly diagnosed atrial flutter with rapid ventricular response. Based on her history, it is likely that the arrhythmia started today, even though I cannot reliably rule out longer duration. So far, she has virtually minimal response to administration of IV metoprolol and very modest response to administration of digoxin 0.5 mg. Consequently, I believe that we have to administer more potent medications to accomplish rate control and potentially even rhythm control. In this setting, I believe that the amiodarone is the only feasible option even though in the long run there is definitely concern about its toxicity. Also, considering the underlying pulmonary fibrosis, it is certainly a questionable choice, but I believe that due to the urgency of the symptoms, we have to accomplish better rate control quite rapidly. Once that is established, then we can consider alternative management. I spoke with the patient about this and she is very much in favor. She clearly states that she wants to be DO NOT INTUBATE (DNI)/DO NOT RESUSCITATE (DNR) and would not consider intubation under any circumstances. As far as the anticoagulation is concerned, I am somewhat reluctant to give her full anticoagulation if only due to underlying renal dysfunction, but also because of heavy immunosuppressants including steroids. Consequently, I am concerned about the risk of bleeding. For the time being, she is only on deep vein thrombosis (DVT) prophylactic dose of heparin, but if she does not convert into sinus mechanism, will establish the choice of anticoagulation in the morning. As far as the troponin elevation is concerned, she had heart catheterization before her TAVR 2-1/2 years ago and had no coronary artery disease. Consequently, I believe that the troponin elevation is likely a consequence of her tachycardia. I do not see anything on physical exam to suggest prosthetic valvular malfunction but echocardiogram was ordered for tomorrow. Her prognosis in the long run is certainly futile but even in the short run is guarded at best. I will continue following the patient with you. [place] Copy To: [place]. [place]iva [place], [place]
[2016-08-22 21:50] VITALS: BP 160/105
[2016-08-22] MEDS: FAMOTIDINE 20 MG TAB PO SCH (22:39)
[2016-08-22] MEDS: HEPARIN SOD (PORCINE) 5000 UNITS/ML VIAL SC SCH (22:39)
[2016-08-22] MEDS: FERROUS SULFATE 325MG TAB PO SCH (22:39)
[2016-08-22] MEDS: LEVEMIR (INSULIN DETEMIR) 1 UNITS/0.01ML SC SCH (22:39)
[2016-08-22] MEDS: ALLOPURINOL 100 MG TAB PO SCH (22:39)
[2016-08-22] MEDS: MYCOPHENOLATE MOFETIL 250 MG CAP (J7517) PO SCH (22:40)
--- NOTE | 2016-08-22 22:51 | REP ---
RENAL ULTRASOUND: HISTORY: Acute injury. The kidneys are normal in echogenicity. The right kidney measures 5.1 cm in transverse x 5.3 cm in AP x 9.9 cm in cephalocaudal dimensions. The left kidney measures 5 cm in transverse by 5.8 cm in AP x 11.5 cm in cephalocaudal dimensions. There is no hydronephrosis or mass. There are small linear echogenic foci bilaterally that may represent very small calculi versus calcified vessels. IMPRESSION: There are small linear echogenic foci bilaterally that may represent calculi or vascular calcification. Signed by Ishmael Walter MD 08/23/2016 08:21 A
[2016-08-22 23:13] VITALS: BP 167/77
[2016-08-22] MEDS: METOPROLOL 5 MG/5 ML VIAL IV SCH (23:14)
[2016-08-23] VITALS (17 sets, daily range): BP systolic 130–189; BP diastolic 63–82
[2016-08-23] MEDS ORDERED: DIGOXIN 0.25 MG TAB PO ONE (00:20)
[2016-08-23] MEDS ORDERED: PREVNAR 13 VACCINE SYRINGE (CPT CODE:90670) IM SCH (01:30)
[2016-08-23] MEDS ORDERED: INFLUENZA VIRUS VACCINE HIGH DOSE 0.5 ML SYRINGE (90662) IM SCH (01:30)
[2016-08-23] MEDS: AMIODARONE HCL 360 MG in APPROPRIATE DILUENT 1 EA IV SCH ×2 (01:50→13:09)
[2016-08-23 05:03] LABS: MEAN CORPUSCULAR HEMOGLOBIN 27.9 pg (27.0-33.0); MEAN CORPUSCULAR HGB CONC 30.3 g/dl (32.0-36.5); MEAN CORPUSCULAR VOLUME 92.2 fl (80.0-96.0); RED CELL DISTRIBUTION WIDTH 15.1 % (11.5-14.5); WHITE BLOOD COUNT 11.4 K/mm3 (4.0-10.0)
[2016-08-23] MEDS: HEPARIN SOD (PORCINE) 5000 UNITS/ML VIAL SC SCH (05:04)
[2016-08-23] MEDS: METOPROLOL 5 MG/5 ML VIAL IV SCH (05:05)
[2016-08-23 05:30] LABS: ALBUMIN 2.8 GM/DL (3.2-5.2); CALCIUM LEVEL 9.1 MG/DL (8.8-10.2); CREATININE FOR GFR 1.67 MG/DL (0.55-1.02); GLOMERULAR FILTRATION RATE 32.8 (>45); PHOSPHORUS LEVEL 4.5 MG/DL (2.5-4.9); POTASSIUM SERUM 4.5 MEQ/L (3.5-5.1)
[2016-08-23] MEDS: HumaLOG INSULIN (NovoLOG) PER UNIT SC SCH ×4 (07:38→20:22)
--- NOTE | 2016-08-23 08:00 | IPN ---
DATE: 08/23/2016 Mrs. Martinez tells me that she is feeling a little bit better. She feels a little less short of breath. She is not as diaphoretic and she was able even to sleep some. Denies any chest discomfort. Overnight she remained in atrial flutter. The heart rate actually improved and on average was about 100 beats per minute and fluctuating from about 70-115. Vital signs this morning: blood pressure 177/74, heart rate around 100, afebrile. Saturation 98% on 3 liters of oxygen by nasal cannula. Fluid balance approximately equal overnight. Weight documented 96.7 kg. She is alert and oriented and appropriate. Her JVP does not appear elevated. Lung exam is unchanged. She has better air movement today. She still has fine end inspiratory velcro type of crackles. Sound much less prominent than yesterday. Heart exam: Irregularly irregular rhythm. I do not appreciate any apical murmur or gallop, but there is a murmur over her aortic valve. Abdomen is obese but soft. There is no significant peripheral edema. Neurologically she is intact but for generalized weakness. LABORATORY: Her CBC is unchanged, hemoglobin 12.4, hematocrit 40.8, platelet count 189,000. Basic metabolic panel: Potassium 4.5, BUN 51, creatinine 1.7, GFR 32 and glucose 160. Troponin this morning is 1.05 which is actually slightly up. BNP is down from 1270 to 851 and albumin is 2.8. ASSESSMENT/PLAN: Mrs. Martinez is a 66-year-old female who has very advanced polymyositis/pulmonary fibrosis. She presented with atrial flutter with rapid ventricular response and acute renal failure. As far as management of atrial flutter is concerned, I gave her IV amiodarone in spite of not being certain about the duration of her arrhythmia because she was not tolerating the fast heart rate well and she had virtually no response to beta blockers IV. Consequently I felt that at least slowing of the heart rate needs to be accomplished promptly and I felt the amiodarone was the most reliable mean how to accomplish that. So far, there has been decent progress but we still not accomplish really good control. I will continue IV amiodarone as it is being run and will add oral metoprolol 25 mg every 6 hours. I am hoping that by the time the amiodarone drip is going to be finished, her heart rate will be much better controlled or possibly she might even convert to sinus mechanism. Considering the fact that she has had persistent atrial flutter now for at least 12 hours and probably longer, we will have to anticoagulate her. The patient does report that she has a history of GI bleeding. She tells me that it was probably about 2 or 3 years ago and subsequent colonoscopy did not find any obvious pathology to the best of her understanding. I am going to give her Pradaxa if only because we have available reversal agent. I am going to give renally adjusted dose even though her GFR is borderline and potentially she can even get a full dose. I intend to do this as a basically testing dose and will see how her next course will be. She is already on famotidine and I am going to add Protonix. As far as the troponin elevation is concerned, she does not have any chest pain and never did. There is no obvious ST elevation on EKG short of her flutter waves and she had a normal coronary angiogram prior to her TAVR just 2 years ago. Consequently I do not plan any further evaluation in this matter. She has scheduled echocardiogram later today and only large wall motion abnormality will change my opinion about this issue. As far as renal failure is concerned, I suspect it was principally due to low cardiac output in setting of prominent tachycardia. I do expect that that will slowly improve with better rate control. The patient remains severely ill and her prognosis remains guarded but better than last night. I will see her again in followup tomorrow. DELILAH
[2016-08-23] MEDS ORDERED: DIGOXIN 0.25 MG TAB PO SCH (09:00)
[2016-08-23] MEDS: MYCOPHENOLATE MOFETIL 250 MG CAP (J7517) PO SCH ×2 (09:37→20:55)
[2016-08-23] MEDS: BACTRIM 160MG/800MG DS TAB PO SCH ×2 (09:37→20:55)
[2016-08-23] MEDS: METAMUCIL (PSYLLIUM) PACKET PO SCH (09:37)
[2016-08-23] MEDS: FLUoxetine 20 MG CAP PO SCH (09:37)
[2016-08-23] MEDS: predniSONE 10 MG TAB PO SCH (09:38)
[2016-08-23] MEDS: ALLOPURINOL 100 MG TAB PO SCH ×2 (09:38→20:54)
[2016-08-23] MEDS: DABIGATRAN ETEXILATE 75 MG CAP (PRADAXA) PO SCH ×2 (09:38→20:55)
[2016-08-23] MEDS: PANTOPRAZOLE 40MG TAB (PROTONIX) PO SCH (09:38)
[2016-08-23] MEDS: ASPIRIN 81 MG ENTERIC TAB PO SCH (09:38)
[2016-08-23] MEDS: ASCORBIC ACID 500 MG TAB PO SCH (09:38)
[2016-08-23] MEDS: FERROUS SULFATE 325MG TAB PO SCH ×2 (09:38→20:55)
[2016-08-23] MEDS: FUROSEMIDE 40 MG/4 ML VIAL (J1940) IV SCH (09:38)
[2016-08-23] MEDS ORDERED: METOPROLOL TART 25 MG TABLET PO STA ×2 (09:48→11:01)
[2016-08-23] MEDS ORDERED: METOPROLOL 5 MG/5 ML VIAL IV STA (09:48)
[2016-08-23] MEDS: ISOSORBIDE MON. (IMDUR) 30 MG XR TAB PO SCH (10:08)
--- NOTE | 2016-08-23 12:11 | HPE ---
DATE OF ADMISSION: 08/22/2016 TIME PATIENT WAS SEEN: At 1700. PRIMARY CARE PROVIDER: Dr. Siva Allen LINE PAINTING MACHINE OPERATOR: Dr. Stiles CHIEF COMPLAINT: Shortness of breath and sweaty. HISTORY OF PRESENT ILLNESS: A 66-year-old female with past medical history of anemia and antisynthetase syndrome, aortic stenosis, status post transcatheter aortic valve replacement (TAVR), degenerative disc disease, insulin-dependent type 2 diabetes, fibromyalgia, fibrocystic lung disease, polymyositis, osteoarthritis, shingles, sinus tarsi syndrome, sleep apnea with continuous positive airway pressure (CPAP) at night, presented with shortness of breath and severe sweating for the past 1 month. 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 Afterward, she has been having this shortness of breath and intermittent sweating. It usually lasts 1-2 hours; however, today it has been going on for about 4-5 hours. Patient also saw primary care provider, Dr. Siva Allen, in office and recommended for her to come into emergency room to receive further evaluation. She also admits to some weakness; however, she was able to ambulate. Denies any chest pain, any shoulder pain, neck pain. Patient does use 3 liters of oxygen at home for her fibrocystic lung disease. In addition, she does see Dr. Rosario outpatient, and she does have a history of aortic stenosis status post TAVR in 2013. According to patient, she has also been placed on a new antibiotic. It appears to be Bactrim. She has been on that for a month as well. ALLERGIES: She has a list of allergies, including CORTISOL STEROIDS, give her hives, ATORVASTATIN, nose itch. PENICILLIN gives her rash. CHLORPHENIRAMINE. Also CODEINE, GEMFIBROZIL. AZITHROMYCIN gives her severe nausea. So does TETRACYCLINE. Also SIMVASTATIN gives her muscle ache. PAST MEDICAL HISTORY: Includin. Anemia. 2. Antisynthetase syndrome. 3. Aortic stenosis status post transcatheter aortic valve replacement in 2013. Patient also had cardiac catheterization at that time. 4. Degenerative disc disease. 5. Insulin-dependent type 2 diabetes mellitus. 6. Fibromyalgia. 7. Hiatal hernia. 8. Interstitial fibrosis. Sees Dr. Rodriguez. She is also on 3 liters of oxygen 24 hours a day. 9. Osteoarthritis. 10. Polymyositis. Sees rheumatology, Dr. Stiles, at [place]. 11. Tarsi syndrome. 12. Sleep apnea, on CPAP at night. HOME MEDICATIONS: - allopurinol 100 mg one tablet by mouth twice a day - aspirin 81 mg one tablet by mouth daily - ferrous sulfate 325 mg one tablet by mouth twice a day - fluoxetine 20 mg one tablet by mouth daily - Lasix 40 mg one tablet by mouth daily - insulin sliding scale - Levemir 55 units subcutaneously at bedtime - Cellcept 1000 mg one tablet by mouth twice a day - Percocet 5/325 mg one tablet by mouth every 8 hours as needed - prednisone 60 mg one tablet by mouth daily - Metamucil one packet by mouth daily - Zantac one tablet by mouth every evening - Carafate 10 mL by mouth three times a day - Bactrim one tablet by mouth twice a day - Reclast 5 mg intravenous (IV) as directed, due in November. Receives yearly. PAST SURGICAL HISTORY: 1. Transcatheter aortic valve replacement. 2. Tonsillectomy. 3. Cholecystectomy. 4. Arthroscope of the knee on the right side. 5. Cataract surgery bilaterally. SOCIAL HISTORY: Patient lives with patient's father at home. Denes any smoking, drinking, or recreational drug use. FAMILY HISTORY: Denies. REVIEW OF SYSTEMS: GENERAL: Patient denies any recent traveling, sick contact, any fever or chills; however, she does admit to sweating. HEENT: Denies any change in vision, smell, hearing, or taste. Denies any sore throat or any cough. CARDIOVASCULAR: Patient does have aortic stenosis status post transcatheter aortic valve replacement in 2013. Also had heart catheterization at that time. Did not show any coronary artery disease. Patient, however, is on home Lasix. PULMONARY: Patient does have fibrocystic lung disease and sees Dr. Rodriguez outpatient, on 3 liters of oxygen 24 hours a day. Admits to increased trouble breathing for the past 1 month whenever she has this episode. GASTROINTESTINAL: Denies any nausea, vomiting, diarrhea, or constipation, any blood in the stool. GENITOURINARY: Denies any blood in the urine. MUSCULOSKELETAL: Admits to fibromyalgia and chronic pain. ENDOCRINE. Patient does have insulin-dependent type 2 diabetes. Denies any heat or cold in tolerance. HEMATOLOGIC/ONCOLOGIC: Denies any bruising or any bleeding anywhere. PSYCHIATRIC: Denies any depression or anxiety. NEUROLOGIC: Denies any weakness on either side of the body. Denies any change of sensation. PHYSICAL EXAMINATION: VITAL SIGNS: Blood pressure 136/98, pulse 142, respirations 20, temperature 99.1 , oxygen was saturating at 97% on 3 liters of nasal cannula. Weight was 100 kg and height was 157 cm. GENERAL: Patient is a morbidly obese elderly female who was alert, awake, oriented times three. Appears to be in mild distress. Lying comfortable in bed with head elevated at 45-degree angle. HEENT: Normocephalic, atraumatic. Extraocular motor intact. Mucosa moist. NECK: Supple. No neck lymphadenopathy. CARDIOVASCULAR: Tachycardic. S1, S2. A 2/6 systolic heart murmur. LUNGS: Clear to auscultation bilaterally. No wheezes, rales, or rhonchi. ABDOMEN: Positive bowel sounds, soft, nontender, nondistended. No peritoneal signs. No ecchymosis. EXTREMITIES: No edema, clubbing, or cyanosis. SKIN: Warm and dry. NEUROLOGIC: Cranial nerves II-XII intact. No focal neurological deficit. LABORATORY DATA: WBC 9.5, hemoglobin 13.5, hematocrit 44.8 with platelet count of 208 and MCV was 90.8. Sodium 141, potassium 4.8, chloride 103, bicarbonate 27, BUN 49, creatinine 1.74. Patient states baseline is around 1. GFR 31.3, fasting glucose 297, calcium 9.8, magnesium 2.5. Cardiac markers show total CK 81, CK-MB 10.7, troponin 0.76. TSH 0.9, free T4 of 1.7, T3 of 37. Patient's coagulation shows PT 13.9, INR 0.96. Urinalysis, urine culture, renal ultrasound have been ordered. Results pending. Portable chest x-ray has been ordered in the emergency room. Official result pending. Preliminary result does show patchy opacity in bilateral lung vieira. Possible cephalization. ASSESSMENT AND PLAN: A 66-year-old female with a past medical history of polymyositis, fibrocystic lung disease, on 2 liters of oxygen at home, aortic stenosis, status post transcatheter aortic valve replacement. Also possible heart failure, on Lasix, chronic anemia, antisynthetase syndrome, degenerative disc disease, fibromyalgia , hiatal hernia, sinus tarsi syndrome, obstructive sleep apnea, on continuous positive airway pressure (CPAP) at night, presented with: 1. Shortness of breath and sweaty. Electrocardiogram (EKG) shows that patient has a ventricular rate of 147 and is in atrial flutter. Dr. Rosario has been consulted and recommended to start patient on digoxin 0.5 mg by mouth right now and also another digoxin 0.25 mg 6 hours from now. Will check digoxin level tomorrow morning. Patient did also receive three doses of Lopressor 5 mg and also by mouth metoprolol 50 mg in the emergency room. At this point, will also continue Lopressor 5 mg every 8 hours. Hold if systolic blood pressure is less than 130 or if heart rate is less than 100. Will continue to follow cardiology recommendations. 2. Chest x-ray shows patchy opacities bilaterally, possibly secondary to interstitial pulmonary edema. Basic metabolic panel (BMP) has been ordered; result pending. Patient did also start on prednisone 60 mg a month ago, which correlates with patient's symptoms, possibly a side effect from prednisone; therefore, will reduce patient's prednisone level from 60 mg to 10 mg and will obtain echocardiogram tomorrow morning and continue to monitor patient. Continue patient's home Lasix. 3. Acute kidney injury with creatinine of 1.74. Baseline is around 1. Will order urine lytes and calculate FENa. Will also obtain a urinalysis and urine culture and also renal ultrasound and will continue to monitor patient. 4. Elevated troponin with a troponin of 0.76, likely secondary to demand ischemia from atrial flutter. Cardiology is on board. Will follow their recommendations. Will continue to trend the troponin. Will continue patient on home aspirin and beta malachi. Patient is not on statin due to side effects. 5. Severe aortic stenosis status post transcatheter aortic valve replacement. Follows with Dr. Rosario. Will follow Dr. Rosario's recommendations. 6. Atrial flutter with a ventricular rate of 140. Digoxin has been started per cardiology recommendation. Initially had 0.5 mg and will dose patient with a second dose of 0.25 mg 6 hours from now and measure digoxin level in the morning. 7. Fibrocystic lung disease, on 3 liters of oxygen 24 hours a day at home. Will continue patient's oxygen and continue to monitor patient. 8. Polymyositis, on home steroid. Will reduce the steroid from 60 mg to 10 mg due to possibly contributing to patient's symptoms, causing possible fluid overload. 9. Degenerative disc disease, fibromyalgia. Continue home medication. 10. Chronic anemia, stable. 11. Insulin-dependent type 2 diabetes. Will half patient's home Levemir. Initially was on 55 units at home. Will give patient 25 units in the hospital and will place patient on insulin sliding scale and fingersticks and continue to monitor patient. 12. Obstructive sleep apnea, on CPAP at night. Will continue patient's home CPAP. 13. Chronic constipation. Will continue home medication. 14. Chronic respiratory failure on 3L O2 /. Continue oxygen. 15. Morbid obesity with BMI 40.6. stable 16. Deep vein thrombosis (DVT) prophylaxis. Heparin 5000 units subcutaneously every 8 hours. DISPOSITION: Patient does have atrial flutter with ventricular rate in the 140s. Dr. Rosario, cardiology, has been consulted. Will follow his recommendations. Will also follow echocardiogram and continue to trend cardiac enzymes. Will reduce patient's prednisone for now. Patient has been discussed with attending doctor, Dr. Cuevas. My preceptor for this patient encounter was Dr. Domenic Cuevas. The preceptor was physically present in the building during the encounter and was fully available as needed. All aspects of the patient interview, examination, medical decision making process, and medical care plan development were reviewed and approved by the preceptor. The preceptor is aware and concurs with the plan as stated in the body of this note and will attest to such by his/her co-signature. Attending Note: I have independently examined this patient and all aspects of the exam and treatment decisions have been discussed with the resident. A member of the hospitalist staff will continue to follow this patient. DELILAH
[2016-08-23] MEDS ORDERED: DIGOXIN INJ 0.5 MG/2 ML AMP (J1160) IV STA (12:20)
[2016-08-23] MEDS: METOPROLOL TART 25 MG TABLET PO SCH ×3 (12:29→23:47)
--- NOTE | 2016-08-23 12:39 | IPN ---
DATE: 08/23/2016 Patient seen and examined at bedside. Patient is feeling much better. No longer sweaty, however, her heart rate was still in the 120s when I saw her. Otherwise patient denies any chest pain, fever or chills. Admits to some trouble breathing, however, improved. Denies any abdominal pain, nausea, vomiting, diarrhea or constipation. Denies any other current new complaints. PHYSICAL EXAMINATION: Vital signs: Temperature 96.8, pulse 110, respirations 20 , blood pressure 156/74, oxygen saturation 97% on 3 liters nasal cannula. General: Patient is a morbidly obese elderly female who is alert, awake, oriented times three. Does not appear to be distress. Lying comfortably in bed with head elevated at 45 degree angle. HEENT: Normocephalic, atraumatic. Extraocular motor intact. Mucous moist. Neck supple. No neck lymphadenopathy. Cardiovascular: Irregularly irregular, S1, S2. Lungs: Clear to auscultation bilaterally. No wheezes, rales or rhonchi. Abdomen: Positive bowel sounds, soft, nontender, nondistended. No peritoneal signs. No ecchymosis. Extremities: Trace pitting edema bilaterally. Otherwise no clubbing or cyanosis. Skin: Warm and dry. Neuro: Cranial nerves II through XII intact. No focal neurological deficit. LABS: WBC 11.4, hemoglobin 12.4, hematocrit 40.8, platelet count 189. MCV 92.2. Sodium 140, potassium 4.5, chloride 100, bicarbonate 32, BUN 51, creatinine 1.67. Glomerular filtration rate 32.8 with glucose of 160. Calcium 9.1, phosphorus 4.5. Cardiac marker showed troponin trending from the most recent to yesterday at 0.82, 1.05, 0.88, 0.68, 0.76. Patient's BNP level this morning was 851. Yesterday around 7 it was 1270. Patient's Accu-Chek glucose this morning was 215. Blood culture times two, urine culture and Methicillin-resistant staphylococcus aureus (MRSA) screen all pending. No new imaging. ASSESSMENT AND PLAN: A 66-year-old female with a past medical history of severe aortic stenosis status post TVAR in 2013, polymyositis, pulmonary fibrosis, insulin dependent type 2 diabetes, and other comorbidities presented with: 1. Shortness of breath secondary to atrial flutter. Patient will also had RVR, ventricular rate was initially in the 140-150s. Cardiology has been consulted. Will follow Dr. Rosario's recommendation. Currently patient is on amiodarone drip and also metoprolol tartrate every 6 hours. Will continue to monitor. It is initially felt patient possibly had fluid overload from prednisone side effect, therefore, prednisone has been reduced from 60 mg to 10 mg. Will continue to monitor. Patient, however, does have increased pain after tapering prednisone. Will possibly increased prednisone again for patient's polymyositis. Otherwise, we will continue to monitor and continue to follow Dr. Rosario's recommendation. 2. Severe pulmonary fibrosis. Continue to titrate oxygen between 88 and 92%. 3. Polymyositis. Continue home steroid. Patient does see rheumatology outpatient. 4. Insulin dependent type 2 diabetes. Continue Levemir which was reduced from 55 units to 25 units. Will continue fingersticks. 5. Vitamin D deficiency. Continue supplements. 6. Iron deficiency. Continue supplements. 7. Gastroesophageal reflux disease (GERD). Continue supplements with PPI. 8. Deep venous thrombosis (DVT) prophylaxis with Pradaxa which was started for patient's atrial flutter. DISPOSITION: Will continue to follow Dr. Rosario's cardiology recommendation and patient has been started on Pradaxa. Will continue to monitor. Patient is in intensive care unit (ICU) due to patient still has RVR. Patient has been discussed with attending doctor, Dr. Aguirre. My preceptor for this patient encounter was Dr. Aguirre. The preceptor was physically present in the building during the encounter and was fully available. As needed, all aspects of the patient interview, examination, medical decision making process, and medical care plan development were reviewed and approved by the preceptor. The preceptor is aware and concurs with the plan as stated in the body of this note and will attest to such by his/her cosignature. I have both independently examined this patient as well as reviewed the note. I have discussed in detail with the resident the findings and plan of treatment as documented in the residents note. I will continue to follow the patient and offer further guidance to the patients care as necessary during this hospital stay. Marta MAZARIEGOS
[2016-08-23] MEDS ORDERED: DIGOXIN INJ 0.5 MG/2 ML AMP (J1160) IV ONE (16:30)
--- NOTE | 2016-08-23 19:42 | ECGEPIP ---
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
[2016-08-23] MEDS: LEVEMIR (INSULIN DETEMIR) 1 UNITS/0.01ML SC SCH (20:55)
[2016-08-23] MEDS: FAMOTIDINE 20 MG TAB PO SCH (20:55)
[2016-08-24] VITALS: BP 162/63
[2016-08-24 04:00] VITALS: BP 146/68
[2016-08-24 05:27] LABS: MEAN CORPUSCULAR HEMOGLOBIN 27.7 pg (27.0-33.0); MEAN CORPUSCULAR VOLUME 89.5 fl (80.0-96.0); RED CELL DISTRIBUTION WIDTH 14.2 % (11.5-14.5); WHITE BLOOD COUNT 8.1 K/mm3 (4.0-10.0)
[2016-08-24] MEDS: METOPROLOL TART 25 MG TABLET PO SCH ×4 (05:34→23:40)
[2016-08-24 05:39] LABS: ALBUMIN 2.5 GM/DL (3.2-5.2); CALCIUM LEVEL 8.8 MG/DL (8.8-10.2); CREATININE FOR GFR 1.39 MG/DL (0.55-1.02); GLOMERULAR FILTRATION RATE 40.5 (>45); PHOSPHORUS LEVEL 3.9 MG/DL (2.5-4.9); POTASSIUM SERUM 3.8 MEQ/L (3.5-5.1)
[2016-08-24] MEDS: HumaLOG INSULIN (NovoLOG) PER UNIT SC SCH ×4 (07:30→20:21)
[2016-08-24 07:50] VITALS: BP 139/65
[2016-08-24] MEDS: MYCOPHENOLATE MOFETIL 250 MG CAP (J7517) PO SCH ×2 (08:10→20:31)
[2016-08-24] MEDS: FLUoxetine 20 MG CAP PO SCH (08:11)
[2016-08-24] MEDS: ASCORBIC ACID 500 MG TAB PO SCH (08:11)
[2016-08-24] MEDS: DABIGATRAN ETEXILATE 75 MG CAP (PRADAXA) PO SCH ×2 (08:11→20:30)
[2016-08-24] MEDS: BACTRIM 160MG/800MG DS TAB PO SCH ×2 (08:11→20:31)
[2016-08-24] MEDS: LISINOPRIL *2.5 MG* TAB PO SCH (08:11)
[2016-08-24] MEDS: ASPIRIN 81 MG ENTERIC TAB PO SCH (08:12)
[2016-08-24] MEDS: DIGOXIN 0.125 MG TAB PO SCH (08:12)
[2016-08-24] MEDS: PANTOPRAZOLE 40MG TAB (PROTONIX) PO SCH (08:12)
[2016-08-24] MEDS: predniSONE 10 MG TAB PO SCH (08:12)
[2016-08-24] MEDS: FERROUS SULFATE 325MG TAB PO SCH ×2 (08:12→20:31)
[2016-08-24] MEDS: FUROSEMIDE 40 MG/4 ML VIAL (J1940) IV SCH (08:13)
[2016-08-24] MEDS: ALLOPURINOL 100 MG TAB PO SCH ×2 (08:13→20:31)
[2016-08-24] MEDS: METAMUCIL (PSYLLIUM) PACKET PO SCH (08:13)
--- NOTE | 2016-08-24 08:32 | IPN ---
DATE: 08/24/2016 Mrs. Martinez feels better this morning. She was able to sleep with her BiPAP. She feels less short of breath. She is able to talk and she is not as diaphoretic. She denies any chest pain. Blood pressure 145/65, heart rate is from 70s to 90s. She is afebrile. Saturation is 96% on 3 liters of oxygen by nasal cannula. Fluid balance yesterday was slightly negative. Weight is documented at 93.7, which is actually quite a bit of a decline since yesterday. She is alert and oriented and appropriate. The JVP does not look high. Lungs still reveal fine end inspiratory Velcro kind of quality crackles, mostly over the lower segments of her lung vieira. Heart exam irregular rhythm. No gallop. Murmur at the base is unchanged, fairly faint. Abdomen is obese but soft and nontender. There is mild peripheral edema. Laboratory gilliam, her basic metabolic panel reveals potassium 3.8, BUN 51, creatinine 1.4, glucose is 73, GFR was calculated at 40 and CBC is normal. Her Troponin is down to 0.8, albumin is 2.5. She had an echocardiogram yesterday that revealed severe left ventricular systolic dysfunction. ASSESSMENT/PLAN: Mrs. Martinez is a 66-year-old lady who has underlying polymyositis/pulmonary fibrosis and history of TAVR. She presented with extreme dyspnea and atrial flutter with 2:1 conduction and ventricular rate 140 beats per minute. It appears that we accomplished reasonable rate control. I initially gave her amiodarone for faster onset of action, but the IV infusion has terminated. At this point she is on combination of digoxin and metoprolol and heart rate seems to be in 70s, which corresponds to 4:1 conduction. We will see whether this will hold as the effect of amiodarone is going to subside. I am going to leave her rate controlling medications unchanged. She has been on Pradaxa 75 twice a day since yesterday. It looks like her renal function is improving so she might be able to tolerate standard dose, but I am going to wait at least one more day before increasing the dose further. I still believe there is inherent instability in her condition. As far as congestive heart failure is concerned, she was somewhat surprisingly found to have severe LV systolic dysfunction on echocardiogram yesterday. 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 This would indicate that the atrial flutter has been present much longer than suspected, generally it is believed at least a few weeks. I had a discussion with the patient on this topic. I explained to her that most people who have tachycardia induced cardiomyopathy will recover with medical management. I am going to introduce low dose LETITIA inhibitor to her regimen. I do not believe she is a good candidate for cardiac catheterization at this point. She had normal coronary angiogram 2-1/2 years ago and it is not likely that this is a consequence of thrombotic event. I will continue to follow the patient with you. She remains seriously ill, even though better today than yesterday. INDICATION Of MTDD
[2016-08-24] MEDS: ISOSORBIDE MON. (IMDUR) 30 MG XR TAB PO SCH (08:40)
--- NOTE | 2016-08-24 11:14 | IPN ---
DATE: 08/24/2016 Time patient was seen was at 8:10 The patient has been seen and examined at bedside. No acute events overnight. The patient's ventricular rate is in the 100s today. The patient is feeling better today. Denies any chest pain, trouble breathing. Denies any abdominal pains, nausea, vomiting, diarrhea, or constipation. Patient also saw Dr. Rosario this morning and stated that patient possibly will go home on the weekend. Temperature 96.2, pulse 74, respirations 20, blood pressure 139/65, oxygen saturation 96% on 3 liters nasal cannula. General: Patient is a morbidly obese female who is alert, awake and oriented times three. Does not appear to be in distress. Resting comfortably in a chair with the head elevated at 60 degrees. HEENT: Normocephalic, atraumatic. Extraocular motor intact. Mucous moist. Neck supple. No neck lymphadenopathy. Cardiovascular: Irregularly irregular, S1, S2. Difficult to auscultate due to increased AP diameter and also body habitus. Lungs: Clear to auscultation bilaterally. No wheezes, rales or rhonchi. Abdomen: Positive bowel sounds, soft, nontender, nondistended. No peritoneal signs. No ecchymosis. Extremities: No edema, clubbing or cyanosis. Skin: Warm and dry. Neurologic: Cranial nerves II-XII intact. No focal neurological deficit. LABS: WBC 8.1, hemoglobin 12.6, hematocrit 40.7, with platelet count 116 and MCV of 89.5. Sodium 143, potassium 3.8, chloride 103, bicarbonate 33, BUN 51, creatinine 1.39. Glomerular filtration rate (GFR) was 40.5. Fasting glucose 73. Calcium 8.8. Phosphorus 3.9. Albumin level was 2.5. Patient's troponin level yesterday was trending down and the troponin level yesterday morning was 1.05 and around 10 o'clock was 0.82. The patient's methicillin-resistant Staphylococcus aureus (MRSA) screening has been negative. Blood cultures times two are negative after two days. Urine culture shows no growth after two days. The patient also had an echocardiogram read by Dr. Rosario. Report is not showing up yet, will followup. ASSESSMENT AND PLAN: 66-year-old female with a past medical history of severe aortic stenosis status post transcatheter aortic valve replacement (TAVR) in 2014, polymyositis, pulmonary fibrosis on 3 liters of oxygen 24 hours a day, insulin dependent type 2 diabetes, obstructive sleep apnea on CPAP at night, and other comorbidities who presented with: 1. Shortness of breath secondary to atrial flutter. Also with rapid ventricular rate (RVR) initially with a ventricular rate of 140-150s. Cardiology, Dr. Rosario, has been consulted. We appreciate his recommendation. The patient has been switched to digoxin this morning and also continue patient on metoprolol. Continue Pradaxa, due to atrial flutter and history of GI bleed. Will continue to follow Dr. Rosario's recommendations. 2. Severe pulmonary fibrosis, on 3 liters of nasal cannula at home. Currently will titrate oxygen between 88% and 92%. 3. Polymyositis. Continue 10 mg steroid. Patient is tolerating well. At home , she was on 60 mg. 4. Insulin dependent type 2 diabetes. Continue 25 units of Levemir. The patient was on 55 at home. Continue insulin sliding scale and fingersticks. 5. Obstructive sleep apnea, on CPAP at night. 6. Vitamin D deficiency. Continue supplement. 7. Iron deficiency. Continue supplement. 8. Gastroesophageal reflux disease (GERD). Continue home proton pump inhibitor (PPI). 9. Acute on chronic systolic CHF in setting of tachycardia induced cardiomyopathy. BNP was 1270. Official echocardiogram report pending. 10. Possible interstitial pulmonary edema secondary to acute decompensation CHF. Improved. 11. Deep venous thrombosis (DVT) prophylaxis, on Pradaxa, started for patient's atrial flutter yesterday. DISPOSITION: Will continue to follow Dr. Rosario's recommendations and continue Pradaxa and digoxin beta malachi. The patient is no longer in RVR. Will consider downgrading patient from intensive care unit once the patient is more stable. The patient's heart rate is still in the 100s. According to patient, Dr. Rosario possibly will let patient go home on the weekend if the patient remains stable. Patient has been discussed with attending doctor, Dr. Aguirre. My preceptor for this patient encounter was Dr. Aguirre. The preceptor was physically present in the building during the encounter and was fully available. As needed , all aspects of the patient interview, examination, medical decision making process, and medical care plan development were reviewed and approved by the preceptor. The preceptor is aware and concurs with the plan as stated in the body of this note and will attest to such by his/her cosignature. I have both independently examined this patient as well as reviewed the note. I have discussed in detail with the resident the findings and plan of treatment as documented in the residents note. I will continue to follow the patient and offer further guidance to the patients care as necessary during this hospital stay. Marta MAZARIEGOS
[2016-08-24 11:37] VITALS: BP 146/60
[2016-08-24 16:25] VITALS: BP 131/58
--- NOTE | 2016-08-24 17:13 | ECGEPIP ---
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 SLOWER RATE FROM 08/22/16 RHYTHM CHANGE BUT OTHERWISE SIMILAR TO 10/14/15 ie. NO ACUTE INFARCTION Electronically Signed On 08-24-2016 17:13:30 EST by Devendra Nuñez
--- NOTE | 2016-08-24 17:28 | ECGEPIP ---
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
[2016-08-24 20:00] VITALS: BP 118/54
[2016-08-24] MEDS: FAMOTIDINE 20 MG TAB PO SCH (20:31)
[2016-08-24] MEDS: LEVEMIR (INSULIN DETEMIR) 1 UNITS/0.01ML SC SCH (20:32)
--- NOTE | 2016-08-24 22:29 | EDDOCDS ---
Physician Documentation [facility] Name: Allyson Martinez Age: 66 yrs Sex: Female : 1950 Arrival Date: 08/22/2016 Time: 15:02 Bed 1 Private MD: Siva Allen Disposition: 08/22/16 17:20 Hospitalization ordered by Domenic Cuevas for Inpatient Admission. Preliminary diagnosis are Tachycardia, unspecified, Chronic combined systolic (congestive) and diastolic (congestive) heart failure, Renal tubulo-interstitial disease, unspecified. - Bed requested for M ICU. - Status is Inpatient Admission. jmb - Condition is Stable. - Problem is an ongoing problem. - Symptoms have improved. Historical: - Allergies: Canasa; Erythromycin; Gemfibrozil; Lipitor; PENICILLINS (Rash); steroids; TETRACYCLINES; Tussionex Pennkinetic ER; Zocor; - Home Meds: 1. amitriptyline 10 mg Oral tab 1 tab daily for Fibromyalgia 2. Carafate 1 gram Oral tab 1 gram 4 times per day 3. Drisdol 50,000 unit Oral cap 1 cap monthly 4. ferrous sulfate 324 mg (65 mg iron) Oral TbEC twice a day 5. gabapentin 600 mg oral tab three times a day 6. prednisone 60 mg Oral tab once daily 7. Oxygen 3L daily 8. insulin levemir 55 unit daily 9. Novolog 100 unit/mL Sub-Q soln sliding scale 10. Metamucil Smooth Texture Oral pack daily 11. Zantac 150 mg Oral tab 1 tab once daily 12. Lasix 40 mg Oral tab 1 tab once daily 13. aspirin 81 mg Oral tab 1 tab once daily 14. allopurinol 100 mg Oral tab 2 tabs once daily 15. CellCept 500 mg Oral tab 2 tabs 2 TABS IN AM AND 1 TAB IN PM 16. Prozac 20 mg Oral cap 1 cap once daily 17. Reclast 5 mg/100 mL intravenous soln YEARLY 18. Xopenex 1.25 mg/3 mL Nebulizer nebu 3 mL 3 times per day 19. Valtrex 500 mg Oral tab 2 tabs 3 times per day 20. Percocet 5-325 mg Oral tab 1 tab every 8 hours - PMHx: Anemia; Antisynthetase Syndrome; aortic stenosis; Degenerative disc disease; Diabetes - IDDM: controlled; Fibromyalgia; Hiatal Hernia; Interstitial Lung Fibrosis; Osteoarthritis; Polymyositis; Shingles; Sinus Tarsi Syndrome; Sleep Apnea w/ CPAP; - PSHx: TRANS CATHETER AORTA VALVE REPLACEMENT; Tonsillectomy; Cholecystectomy; Arthroscopy, Knee- Right; Cataract Surgery- Bilateral; - Social history: Smoking status: Patient states was never smoker of tobacco. No barriers to communication noted, The patient speaks fluent [place]ian. - Family history: Not pertinent. - : The pt / caregiver states he / she is not on anticoagulants. Home medication list is obtained from the patient. - Exposure Risk Screening:: None identified. Vital Signs: 08/22 15:19 BP 146 / 66; Pulse 148; Resp 22; Temp 99.1(O); Pulse Ox 95% on 3 lpm NC; Weight 100.7 ct3 kg / 222.01 lbs (R); Height 5 ft. 2 in. (157.48 cm); Pain 0/10; 15:45 BP 169 / 72 (auto/); js13 15:45 Pulse 148 MON; Resp 18; Pulse Ox 97% on 3 lpm NC; js13 15:51 Pulse 148 MON; Resp 18; Pulse Ox 97% on 3 lpm NC; js13 15:52 BP 177 / 69 (auto/); js13 15:55 Pulse 147; js13 15:59 BP 156 / 73 (auto/); js13 15:59 Pulse 145 MON; Resp 18; Pulse Ox 97% on 3 lpm NC; js13 15:59 Pulse 145; js13 16:04 BP 148 / 66 (auto/); js13 16:04 Pulse 144 MON; Resp 18; Pulse Ox 96% on 3 lpm NC; js13 16:05 Pulse 143; js13 16:09 BP 140 / 63 (auto/); js13 16:09 Pulse 143 MON; Resp 15; Pulse Ox 97% on 3 lpm NC; js13 16:14 BP 141 / 66 (auto/); js13 16:14 Pulse 143 MON; Resp 20; Pulse Ox 96% on 3 lpm NC; js13 16:19 BP 132 / 60 (auto/); js13 16:19 Pulse 143 MON; Resp 20; Pulse Ox 97% on 3 lpm NC; js13 16:24 BP 129 / 60 (auto/); js13 16:24 Pulse 142 MON; Resp 20; Pulse Ox 97% on 3 lpm NC; js13 16:29 BP 132 / 64 (auto/); js13 16:29 Pulse 141 MON; Resp 20; Pulse Ox 96% on 3 lpm NC; js13 16:34 BP 127 / 61 (auto/); js13 16:34 Pulse 142 MON; Resp 20; Pulse Ox 96% on 3 lpm NC; js13 16:39 BP 136 / 65 (auto/); js13 16:39 Pulse 144 MON; Resp 20; Pulse Ox 97% on 3 lpm NC; js13 16:44 BP 142 / 72 (auto/); js13 16:44 Pulse 144 MON; Resp 20; Pulse Ox 97% on 3 lpm NC; js13 16:49 BP 150 / 75 (auto/); js13 16:49 Pulse 142 MON; Resp 20; Pulse Ox 97% on 3 lpm NC; js13 16:54 BP 135 / 67 (auto/); js13 16:54 Pulse 143 MON; Resp 20; Pulse Ox 97% on 3 lpm NC; js13 16:59 BP 136 / 68 (auto/); js13 16:59 Pulse 144 MON; Resp 20; Pulse Ox 97% on 3 lpm NC; js13 17:04 BP 138 / 76 (auto/); js13 17:04 Pulse 143 MON; Resp 20; Pulse Ox 96% on 3 lpm NC; js13 17:09 BP 137 / 73 (auto/); js13 17:09 Pulse 144 MON; Resp 20; Pulse Ox 97% on 3 lpm NC; js13 17:14 BP 154 / 67 (auto/); js13 17:14 Pulse 142 MON; Resp 20; Pulse Ox 97% on 3 lpm NC; js13 17:19 BP 148 / 69 (auto/); js13 17:19 Pulse 144 MON; Resp 20; Pulse Ox 96% on 3 lpm NC; js13 17:24 BP 142 / 67 (auto/); js13 17:24 Pulse 143 MON; Resp 20; Pulse Ox 96% on 3 lpm NC; js13 17:29 BP 143 / 70 (auto/); js13 17:29 Pulse 142 MON; Resp 20; Pulse Ox 96% on 3 lpm NC; js13 17:34 BP 136 / 98 (auto/); js13 17:34 Pulse 142 MON; Resp 20; Pulse Ox 97% on 3 lpm NC; js13 17:44 BP 139 / 70 (auto/); js13 17:44 Pulse 143 MON; Pulse Ox 96% ; js13 17:49 BP 140 / 72 (auto/); js13 17:49 Pulse 142 MON; js13 17:54 BP 139 / 68 (auto/); js13 17:54 Pulse 143 MON; js13 17:59 BP 149 / 68 (auto/); js13 17:59 Pulse 143 MON; Pulse Ox 97% ; js13 18:04 BP 150 / 67 (auto/); js13 18:04 Pulse 141 MON; Pulse Ox 97% ; js13 18:09 BP 145 / 65 (auto/); js13 18:09 Pulse 138 MON; Pulse Ox 96% ; js13 18:14 BP 160 / 86 (auto/); js13 18:14 Pulse 139 MON; Pulse Ox 96% ; js13 18:19 BP 152 / 70 (auto/); js13 18:19 Pulse 138 MON; Pulse Ox 98% ; js13 18:24 BP 153 / 71 (auto/); js13 18:24 Pulse 141 MON; Pulse Ox 97% ; js13 18:29 BP 148 / 72 (auto/); js13 18:29 Pulse 142 MON; Pulse Ox 98% ; js13 18:34 BP 153 / 74 (auto/); js13 18:34 Pulse 142 MON; Pulse Ox 97% ; js13 18:39 BP 164 / 72 (auto/); js13 18:39 Pulse 141 MON; Pulse Ox 97% ; js13 18:44 BP 142 / 66 (auto/); js13 18:44 Pulse 135 MON; Resp 24; Pulse Ox 93% ; logan 18:49 BP 156 / 58 (auto/); js13 18:49 Pulse 138 MON; Resp 18; Pulse Ox 94% on 3 lpm NC; js13 19:10 Pulse 139 MON; Resp 28 S; Pulse Ox 96% ; logan 19:15 BP 157 / 67 (auto/); logan 19:56 Pulse 97; logan 20:01 BP 186 / 98 (auto/); Pulse 92; Resp 22; Pulse Ox 95% on 3 lpm NC; logan 21:02 Pulse 99 MON; Resp 22 S; Pulse Ox 98% ; logan 21:03 BP 180 / 79 (auto/); logan 15:19 Body Mass Index 40.60 (100.70 kg, 157.48 cm) ct3 MDM: 15:06 Teaching Young/Pulse Ox/q 30 min VS ordered. sd1 15:06 IV Saline Lock ordered. sd1 15:06 Rhythm Strip to chart ordered. sd1 15:06 Undress patient appropriately for examination ordered. sd1 15:07 portable chest Ordered. EDMS 15:07 Basic Metabolic Profile Ordered. EDMS 15:08 CBC with Diff Ordered. EDMS 15:08 Cardiac Injury Profile Ordered. EDMS 15:08 Prothrombin Time Profile\E\INR Ordered. EDMS 15:08 Troponin Ordered. EDMS 15:08 Thyroid Profile Ordered. EDMS 15:08 ECG WITH READING ER PHYS+CARDIAG ordered. EDMS 15:27 MAGNESIUM LEVEL Ordered. EDMS 15:37 Metoprolol 5 mg IVP every 5 minutes; Hold for SBP < 100 or HR < 60. x3 ordered. bs6 16:05 Metoprolol (Tartrate) 50 mg PO once ordered. bs6 16:19 [facility] [place] Sieve Maker Order ordered. bs6 16:27 Basic Metabolic Profile Reviewed. sd1 16:27 CBC with Diff Reviewed. sd1 16:27 Cardiac Injury Profile Reviewed. sd1 16:27 Troponin Reviewed. sd1 16:27 MAGNESIUM LEVEL Reviewed. sd1 16:27 Prothrombin Time Profile\E\INR Reviewed. sd1 16:27 Thyroid Profile Reviewed. sd1 16:28 Nitro-Bid Ointment 2 % 1 inches Transdermal once ordered. sd1 16:40 Furosemide 40 mg IVP once ordered. cs11 17:03 [facility] [place] Sieve Maker Order complete. lbd 17:10 BED REQUEST+ADM ordered. EDMS 17:11 CARDIAC MARKER PANEL Ordered. EDMS 17:23 Financial registration complete. [email or web address] 17:56 Admission / Observation Status ordered. EDMS 17:56 CARDIAC MARKER PANEL Ordered. EDMS 17:57 Digoxin 0.5 mg IVP once ordered. cs11 18:15 PHYSICAL THERAPY EVAL & TREAT ordered. EDMS 18:15 CPAP INPATIENT ordered. EDMS 18:19 [facility] Payment Agreement was scanned into Chat& (ChatAnd) and attached to record. [email or web address] 18:22 CARDIAC DIET - DASH ordered. EDMS 18:24 RENAL US Ordered. EDMS 18:25 ELECTROCARDIOGRAM ADULT ordered. EDMS 18:25 URINALYSIS Ordered. EDMS 18:25 URINE CULTURE Ordered. EDMS 18:29 ECHOCARD,DOPPLER/COLOR FLOW ordered. EDMS 18:29 BRAIN NATIURETIC PEPTIDE Ordered. EDMS 18:40 LIVER PROFILE Ordered. EDMS 18:42 SODIUM,RANDOM URINE Ordered. EDMS 18:42 CREATININE,RANDOM URINE Ordered. EDMS 18:42 BLOOD CULTURES Ordered. EDMS 18:42 BLOOD CULTURES Ordered. EDMS 19:15 MAGNESIUM LEVEL Ordered. EDMS 19:32 COMPLETE BLOOD COUNT Ordered. EDMS 19:32 RENAL PROFILE Ordered. EDMS 19:46 amiodarone 150 mg IVP once ordered. logan 19:53 amiodarone- Slow load (1mg/min) 360 mg IV at 33 mL/hr continuous over 6 hrs; logan 360mg/200mL D5W ordered. 20:11 BRAIN NATIURETIC PEPTIDE Ordered. EDMS 20:32 CARDIAC MARKER PANEL Ordered. EDMS 08/23 09:25 T-Sheet-- Draft Copy was scanned into Chat& (ChatAnd) and attached to record. gb Administered Medications: 08/22 15:50 Drug: Metoprolol 5 mg [metoprolol 5 mg/5 mL intravenous solution (5 mL)] Route: IVP; [facility] Site: right antecubital; 15:55 Drug: Metoprolol 5 mg [metoprolol 5 mg/5 mL intravenous solution (5 mL)] Route: IVP; [facility] Site: right antecubital; 15:55 Follow up: Pulse 147 bpm; Response: Cardiac Rhythm is unchanged 13 15:59 Follow up: Pulse 145 bpm; Response: Cardiac Rhythm is unchanged [facility] 16:00 Drug: Metoprolol 5 mg [metoprolol 5 mg/5 mL intravenous solution (5 mL)] Route: IVP; [facility] Site: right antecubital; 16:05 Follow up: Pulse 143 bpm; Response: Cardiac Rhythm is unchanged [facility] 16:11 Drug: Metoprolol 50 mg [metoprolol tartrate 25 mg tablet (2 tabs)] Route: PO; [facility] 16:44 Drug: Nitro-Bid 1 inches [Nitro-Bid 2 % transdermal ointment (1 inches)] Route: [facility] Transdermal; Site: anterior chest wall; 16:45 Drug: Furosemide 40 mg [furosemide 10 mg/mL injection solution (4 mL)] Route: IVP; [facility] Site: right antecubital; 18:03 Drug: Digoxin 0.5 mg [digoxin 250 mcg/mL injection solution (2 mL)] Route: IVP; Site: [id number] right antecubital; 19:46 Drug: amiodarone 150 mg [amiodarone 150 mg/100 mL (1.5 mg/mL) in dextrose, iso-osmotic logan IV (100 mL)] Route: IVP; Site: right antecubital; 19:56 Follow up: Pulse 97 bpm logan 19:59 Drug: amiodarone- Slow load (1mg/min) 360 mg [amiodarone 360 mg/200 mL (1.8 mg/mL) in logan dextrose, iso-osmotic IV] Route: IV; Rate: 33 mL/hr; Infused Over: 6 hrs; Site: right antecubital; Signatures: Dispatcher [employer] EDMS Rubi Armstrong MD MD sd1 Sharita Kelsey, Tail Edger Unit lbd Celina GottliebRN STEVO logan Clari Dhillon, Reg Reg gb Cici Tovar RN RN js13 Paul Braun, DO DO cs11 Trevon PierreRN RN Racheal Kelley, DO DO bs6 Kristin Kaiser, RN Maria T Duarte mem, Reg Reg ks16 The chart was reviewed and I authenticate all verbal orders and agree with the evaluation and treatment provided.Corrections: (The following items were deleted from the chart) 15:28 15:08 MAGNESIUM LEVEL+LAB ordered. EDMS EDMS 18:22 17:56 REGULAR DIET ordered. EDMS EDMS 19:14 18:29 MAGNESIUM LEVEL ordered. EDMS EDMS 20:12 19:32 DIGOXIN LEVEL ordered. EDMS EDMS 20:32 19:31 CARDIAC MARKER PANEL ordered. EDMS EDMS Attachments: 18:19 [facility] Payment Agreement [email or web address] 08/23 09:25 T-Sheet-- Draft Copy gb Chart Complete MTDD
--- NOTE | 2016-08-24 22:29 | EDDOCDS ---
Nurse's Notes [facility] Name: Allyson Martinez Age: 66 yrs Sex: Female : 1950 Arrival Date: 08/22/2016 Time: 15:02 Bed 1 Private MD: Siva Allen Diagnosis: Tachycardia, unspecified;Chronic combined systolic (congestive) and diastolic (congestive) heart failure;Renal tubulo-interstitial disease, unspecified Presentation: 08/22 15:08 Presenting complaint: EMS states: Patient was seen at Dr Rosario office for a js13 wellness visit and was sent to ER for evaluation for tachycardia HR in 140's. Patient states more shaky than normal. Suicide/Homicide risk assessment- the patient denies having any suicidal and/or homicidal ideations and does not present with any other emotional, behavioral or mental health complaints. Status: Patient is not a shared services representative or dependent. Transition of care: patient was received from a primary care office; Dr Allen. Care prior to arrival: See EMS report. Saline lock initiated. Oxygen administered by EMS. 15:08 Method Of Arrival: Ambulance 13 15:08 Acuity: KUYNG Level 2 js13 15:21 Adult Sepsis Screening: The patient does not have new or worsening altered mentation. js13 Patient's respiratory rate is less than 22. Systolic blood pressure is greater than 100. Patient has a qSOFA score of 0- Negative Sepsis Screen. Triage Assessment: 15:21 General: Appears in no apparent distress, Behavior is appropriate for age, cooperative. js13 Pain: Denies pain. The patient is triaged at the bedside. See Assessment in Nurses Notes section of ED record. Neurological: Level of Consciousness is awake, alert. Cardiovascular: Rhythm is SVT Chest pain is denied. Respiratory: Airway is patent Respiratory effort is even, unlabored, Respiratory pattern is regular, symmetrical, Breath sounds are diminished. Derm: Skin is pink, warm & dry. Historical: - Allergies: Canasa; Erythromycin; Gemfibrozil; Lipitor; PENICILLINS (Rash); steroids; TETRACYCLINES; Tussionex Pennkinetic ER; Zocor; - Home Meds: 1. amitriptyline 10 mg Oral tab 1 tab daily for Fibromyalgia 2. Carafate 1 gram Oral tab 1 gram 4 times per day 3. Drisdol 50,000 unit Oral cap 1 cap monthly 4. ferrous sulfate 324 mg (65 mg iron) Oral TbEC twice a day 5. gabapentin 600 mg oral tab three times a day 6. prednisone 60 mg Oral tab once daily 7. Oxygen 3L daily 8. insulin levemir 55 unit daily 9. Novolog 100 unit/mL Sub-Q soln sliding scale 10. Metamucil Smooth Texture Oral pack daily 11. Zantac 150 mg Oral tab 1 tab once daily 12. Lasix 40 mg Oral tab 1 tab once daily 13. aspirin 81 mg Oral tab 1 tab once daily 14. allopurinol 100 mg Oral tab 2 tabs once daily 15. CellCept 500 mg Oral tab 2 tabs 2 TABS IN AM AND 1 TAB IN PM 16. Prozac 20 mg Oral cap 1 cap once daily 17. Reclast 5 mg/100 mL intravenous soln YEARLY 18. Xopenex 1.25 mg/3 mL Nebulizer nebu 3 mL 3 times per day 19. Valtrex 500 mg Oral tab 2 tabs 3 times per day 20. Percocet 5-325 mg Oral tab 1 tab every 8 hours - PMHx: Anemia; Antisynthetase Syndrome; aortic stenosis; Degenerative disc disease; Diabetes - IDDM: controlled; Fibromyalgia; Hiatal Hernia; Interstitial Lung Fibrosis; Osteoarthritis; Polymyositis; Shingles; Sinus Tarsi Syndrome; Sleep Apnea w/ CPAP; - PSHx: TRANS CATHETER AORTA VALVE REPLACEMENT; Tonsillectomy; Cholecystectomy; Arthroscopy, Knee- Right; Cataract Surgery- Bilateral; - Social history: Smoking status: Patient states was never smoker of tobacco. No barriers to communication noted, The patient speaks fluent Latvian. - Family history: Not pertinent. - : The pt / caregiver states he / she is not on anticoagulants. Home medication list is obtained from the patient. - Exposure Risk Screening:: None identified. Screenin:23 Screening information is obtained from the patient. Fall risk: At risk due to age. js13 Assistance ADL's: requires no assistance with activities of daily living. Abuse/DV Screen: The patient / caregiver reports he/she is: not in a situation that causes fear, pain or injury. Nutritional screening: No deficits noted. Advance Directives: There is an active DNR order but there is no copy available at this time. home support is adequate. Assessment: 15:24 General: Appears in no apparent distress, Behavior is appropriate for age, cooperative. js13 Pain: Denies pain. Neurological: Level of Consciousness is awake, alert. Cardiovascular: Rhythm is SVT Chest pain is denied. Respiratory: Airway is patent Respiratory effort is even, unlabored, Respiratory pattern is regular, symmetrical, Breath sounds are diminished. Derm: Skin is pink, warm & dry. 16:12 General: Appears in no apparent distress, comfortable, Behavior is appropriate for age, js13 cooperative. Pain: Denies pain. Neurological: Level of Consciousness is awake, alert. Cardiovascular: Rhythm is sinus tachycardia Chest pain is denied. Respiratory: Airway is patent Respiratory effort is even, unlabored, Respiratory pattern is regular, symmetrical. Derm: Skin is pink, warm & dry. 17:37 Adult Sepsis Screening: The patient does not have new or worsening altered mentation. js13 Patient's respiratory rate is less than 22. Systolic blood pressure is greater than 100. Patient has a qSOFA score of 0- Negative Sepsis Screen. General: Appears in no apparent distress, Behavior is appropriate for age, cooperative. Pain: Denies pain. Neurological: Level of Consciousness is awake, alert. Cardiovascular: Rhythm is regular Chest pain is denied. Respiratory: Airway is patent Respiratory effort is even, unlabored, Respiratory pattern is regular, symmetrical, Breath sounds are diminished. Derm: Skin is pink, warm & dry. 18:54 General: Appears in no apparent distress, comfortable, Behavior is appropriate for age, js13 cooperative. General: Patient back from ultrasound.. Pain: Denies pain. Neurological: Level of Consciousness is awake, alert. Cardiovascular: Rhythm is regular Chest pain is denied. Respiratory: Airway is patent Respiratory effort is even, unlabored, Respiratory pattern is regular, symmetrical, Breath sounds are diminished. Derm: Skin is pink, warm & dry. 19:15 Reassessment: Patient denies pain at this time. Cardiovascular: Rhythm is atrial logan flutter. Respiratory: Respiratory effort is labored, Respiratory pattern is regular, symmetrical, Breath sounds are diminished bilaterally. Parent/caregiver reports the patient having shortness of breath on exertion. Derm: Skin is diaphoretic, Skin is pale. 20:00 Reassessment: Patient appears in no apparent distress at this time. Pt is comfortable logan as long as she doesn't exert herself. Dr. Rosario has been in and pt examined.. Cardiovascular: Rhythm is atrial flutter 2:1. Respiratory: Respiratory effort is even, unlabored, Respiratory pattern is symmetrical. Derm: Skin is pale, Skin temperature is cool. 20:45 General: Appears in no apparent distress, comfortable. Neurological: No deficits noted. logan Cardiovascular: Rhythm is atrial flutter rates in 90's following Amiodarone bolus. Respiratory: Respiratory effort is even, unlabored. GI: Abdomen is non- distended Denies nausea, vomiting, pain. Derm: Skin is pink, warm & dry. 21:10 General: Appears in no apparent distress, comfortable, Dr. Coleman notified of vitals and logan current condition.. Cardiovascular: Rhythm is atrial flutter 90's. Respiratory: Airway is patent Respiratory effort is even, unlabored. Derm: Skin is pink, warm & dry. Skin temperature is. Vital Signs: 15:19 BP 146 / 66; Pulse 148; Resp 22; Temp 99.1(O); Pulse Ox 95% on 3 lpm NC; Weight 100.7 ct3 kg (R); Height 5 ft. 2 in. (157.48 cm); Pain 0/10; 15:45 BP 169 / 72 (auto/); js13 15:45 Pulse 148 MON; Resp 18; Pulse Ox 97% on 3 lpm NC; js13 15:51 Pulse 148 MON; Resp 18; Pulse Ox 97% on 3 lpm NC; js13 15:52 BP 177 / 69 (auto/); js13 15:55 Pulse 147; js13 15:59 BP 156 / 73 (auto/); js13 15:59 Pulse 145 MON; Resp 18; Pulse Ox 97% on 3 lpm NC; js13 15:59 Pulse 145; js13 16:04 BP 148 / 66 (auto/); js13 16:04 Pulse 144 MON; Resp 18; Pulse Ox 96% on 3 lpm NC; js13 16:05 Pulse 143; js13 16:09 BP 140 / 63 (auto/); js13 16:09 Pulse 143 MON; Resp 15; Pulse Ox 97% on 3 lpm NC; js13 16:14 BP 141 / 66 (auto/); js13 16:14 Pulse 143 MON; Resp 20; Pulse Ox 96% on 3 lpm NC; js13 16:19 BP 132 / 60 (auto/); js13 16:19 Pulse 143 MON; Resp 20; Pulse Ox 97% on 3 lpm NC; js13 16:24 BP 129 / 60 (auto/); js13 16:24 Pulse 142 MON; Resp 20; Pulse Ox 97% on 3 lpm NC; js13 16:29 BP 132 / 64 (auto/); js13 16:29 Pulse 141 MON; Resp 20; Pulse Ox 96% on 3 lpm NC; js13 16:34 BP 127 / 61 (auto/); js13 16:34 Pulse 142 MON; Resp 20; Pulse Ox 96% on 3 lpm NC; js13 16:39 BP 136 / 65 (auto/); js13 16:39 Pulse 144 MON; Resp 20; Pulse Ox 97% on 3 lpm NC; js13 16:44 BP 142 / 72 (auto/); js13 16:44 Pulse 144 MON; Resp 20; Pulse Ox 97% on 3 lpm NC; js13 16:49 BP 150 / 75 (auto/); js13 16:49 Pulse 142 MON; Resp 20; Pulse Ox 97% on 3 lpm NC; js13 16:54 BP 135 / 67 (auto/); js13 16:54 Pulse 143 MON; Resp 20; Pulse Ox 97% on 3 lpm NC; js13 16:59 BP 136 / 68 (auto/); js13 16:59 Pulse 144 MON; Resp 20; Pulse Ox 97% on 3 lpm NC; js13 17:04 BP 138 / 76 (auto/); js13 17:04 Pulse 143 MON; Resp 20; Pulse Ox 96% on 3 lpm NC; js13 17:09 BP 137 / 73 (auto/); js13 17:09 Pulse 144 MON; Resp 20; Pulse Ox 97% on 3 lpm NC; js13 17:14 BP 154 / 67 (auto/); js13 17:14 Pulse 142 MON; Resp 20; Pulse Ox 97% on 3 lpm NC; js13 17:19 BP 148 / 69 (auto/); js13 17:19 Pulse 144 MON; Resp 20; Pulse Ox 96% on 3 lpm NC; js13 17:24 BP 142 / 67 (auto/); js13 17:24 Pulse 143 MON; Resp 20; Pulse Ox 96% on 3 lpm NC; js13 17:29 BP 143 / 70 (auto/); js13 17:29 Pulse 142 MON; Resp 20; Pulse Ox 96% on 3 lpm NC; js13 17:34 BP 136 / 98 (auto/); js13 17:34 Pulse 142 MON; Resp 20; Pulse Ox 97% on 3 lpm NC; js13 17:44 BP 139 / 70 (auto/); js13 17:44 Pulse 143 MON; Pulse Ox 96% ; js13 17:49 BP 140 / 72 (auto/); js13 17:49 Pulse 142 MON; js13 17:54 BP 139 / 68 (auto/); js13 17:54 Pulse 143 MON; js13 17:59 BP 149 / 68 (auto/); js13 17:59 Pulse 143 MON; Pulse Ox 97% ; js13 18:04 BP 150 / 67 (auto/); js13 18:04 Pulse 141 MON; Pulse Ox 97% ; js13 18:09 BP 145 / 65 (auto/); js13 18:09 Pulse 138 MON; Pulse Ox 96% ; js13 18:14 BP 160 / 86 (auto/); js13 18:14 Pulse 139 MON; Pulse Ox 96% ; js13 18:19 BP 152 / 70 (auto/); js13 18:19 Pulse 138 MON; Pulse Ox 98% ; js13 18:24 BP 153 / 71 (auto/); js13 18:24 Pulse 141 MON; Pulse Ox 97% ; js13 18:29 BP 148 / 72 (auto/); js13 18:29 Pulse 142 MON; Pulse Ox 98% ; js13 18:34 BP 153 / 74 (auto/); js13 18:34 Pulse 142 MON; Pulse Ox 97% ; js13 18:39 BP 164 / 72 (auto/); js13 18:39 Pulse 141 MON; Pulse Ox 97% ; js13 18:44 BP 142 / 66 (auto/); js13 18:44 Pulse 135 MON; Resp 24; Pulse Ox 93% ; logan 18:49 BP 156 / 58 (auto/); js13 18:49 Pulse 138 MON; Resp 18; Pulse Ox 94% on 3 lpm NC; js13 19:10 Pulse 139 MON; Resp 28 S; Pulse Ox 96% ; logan 19:15 BP 157 / 67 (auto/); logan 19:56 Pulse 97; logan 20:01 BP 186 / 98 (auto/); Pulse 92; Resp 22; Pulse Ox 95% on 3 lpm NC; logan 21:02 Pulse 99 MON; Resp 22 S; Pulse Ox 98% ; logan 21:03 BP 180 / 79 (auto/); logan 15:19 Body Mass Index 40.60 (100.70 kg, 157.48 cm) ct3 Vitals: 15:21 Log In Time N/A - ambulance arrival. js13 ED Course: 15:03 Patient visited by Sharita Kelsey, Publishing Manager. lbd 15:03 Patient moved to Waiting lbd 15:04 Siva Allen is Private Physician. lbd 15:04 Cici Tovar,STEVO is Primary Nurse. lbd 15:04 Patient moved to 1 lbd 15:10 Triage Initiated js13 15:16 EKG done. (by ED staff). Reviewed by Rubi Armstrong MD. ct3 15:19 Patient has correct armband on for positive identification. Placed in gown. Bed in low ct3 position. Call light in reach. Side rails up X2. pvc monitor on. Pulse ox on. NIBP on. 15:20 Patient visited by Mila Sheriff PCA. ct3 15:23 Racheal Houston DO is PHCP. bs6 15:23 Rubi Armstrong MD is Attending Physician. bs6 15:23 The patient / caregiver is instructed regarding the plan of care and ED course. js13 15:23 Maintain field IV. Dressing intact. Good blood return noted. Site clean & dry. Gauge & js13 site: 18 GAUGE IN LFA. No procedures done that require assistance. O2 via nasal cannula \T\ 3L/min. 15:24 Patient visited by Racheal Houston DO. bs6 15:24 Patient visited by Racheal Houston DO. bs6 15:34 MAGNESIUM LEVEL Sent. js13 15:34 Thyroid Profile Sent. js13 15:34 Basic Metabolic Profile Sent. js13 15:34 CBC with Diff Sent. js13 15:34 Cardiac Injury Profile Sent. js13 15:34 Prothrombin Time Profile\E\INR Sent. js13 15:34 Troponin Sent. js13 15:35 Inserted saline lock: 18 gauge in right antecubital area and blood collected. The js13 patient tolerated the procedure well. Labs drawn. (by ED staff). Sent per order to lab. 16:13 Patient visited by Cici Tovar RN. js13 16:39 Attending Physician role handed off by Rubi Armstrong MD cs11 16:39 Paul Braun DO is Attending Physician. cs11 17:20 Domenic Cuevas DO is Hospitalizing Provider. cs11 17:34 CARDIAC MARKER PANEL Sent. [facility] 17:41 Patient visited by Cici Tovar RN. js13 18:19 [facility] Payment Agreement was scanned into [employer] and attached to record. ks16 18:34 Patient moved to Ultrasound br3 18:56 Patient moved to 1 br3 18:58 Celina Gottlieb RN is Primary Nurse. logan 19:00 portable chest Returned. EDWY 19:41 Primary Nurse role handed off by Cici Tovar RN yao 08/23 09:25 T-Sheet-- Draft Copy was scanned into [employer] and attached to record. gb Administered Medications: 08/22 15:50 Drug: Metoprolol 5 mg [metoprolol 5 mg/5 mL intravenous solution (5 mL)] Route: IVP; [facility] Site: right antecubital; 15:55 Drug: Metoprolol 5 mg [metoprolol 5 mg/5 mL intravenous solution (5 mL)] Route: IVP; [facility] Site: right antecubital; 15:55 Follow up: Pulse 147 bpm; Response: Cardiac Rhythm is unchanged [facility] 15:59 Follow up: Pulse 145 bpm; Response: Cardiac Rhythm is unchanged [facility] 16:00 Drug: Metoprolol 5 mg [metoprolol 5 mg/5 mL intravenous solution (5 mL)] Route: IVP; [facility] Site: right antecubital; 16:05 Follow up: Pulse 143 bpm; Response: Cardiac Rhythm is unchanged [facility] 16:11 Drug: Metoprolol 50 mg [metoprolol tartrate 25 mg tablet (2 tabs)] Route: PO; [facility] 16:44 Drug: Nitro-Bid 1 inches [Nitro-Bid 2 % transdermal ointment (1 inches)] Route: [facility] Transdermal; Site: anterior chest wall; 16:45 Drug: Furosemide 40 mg [furosemide 10 mg/mL injection solution (4 mL)] Route: IVP; [facility] Site: right antecubital; 18:03 Drug: Digoxin 0.5 mg [digoxin 250 mcg/mL injection solution (2 mL)] Route: IVP; Site: js13 right antecubital; 19:46 Drug: amiodarone 150 mg [amiodarone 150 mg/100 mL (1.5 mg/mL) in dextrose, iso-osmotic logan IV (100 mL)] Route: IVP; Site: right antecubital; 19:56 Follow up: Pulse 97 bpm logan 19:59 Drug: amiodarone- Slow load (1mg/min) 360 mg [amiodarone 360 mg/200 mL (1.8 mg/mL) in logan dextrose, iso-osmotic IV] Route: IV; Rate: 33 mL/hr; Infused Over: 6 hrs; Site: right antecubital; Intake: 19:56 IV: 100.00ml; Total: 100.00ml. logan Output: 19:50 Urine: 200.00ml (Voided); Total: 200.00ml. logan Order Results: Lab Order: Basic Metabolic Profile; [facility]' 08/22/16 15:33 Test: GLUCOSE, FASTING; Value: 297; Range: 80-110; Abnormal: Above high normal; Units: MG/DL; Status: F Test: BLOOD UREA NITROGEN; Value: 49; Range: 7-18; Abnormal: Above high normal; Units: MG/DL; Status: F Test: CREATININE FOR GFR; Value: 1.74; Range: 0.55-1.02; Abnormal: Above high normal; Units: MG/DL; Status: F Test: GLOMERULAR FILTRATION RATE; Value: 31.3; Range: >45; Abnormal: Below low normal; Status: F Test: SODIUM LEVEL; Value: 141; Range: 136-145; Units: MEQ/L; Status: F Test: POTASSIUM SERUM; Value: 4.8; Range: 3.5-5.1; Units: MEQ/L; Status: F Test: CHLORIDE LEVEL; Value: 103; Range: 98-107; Units: MEQ/L; Status: F Test: CARBON DIOXIDE LEVEL; Value: 27; Range: 21-32; Units: MEQ/L; Status: F Test: ANION GAP; Value: 11; Range: 8-16; Units: MEQ/L; Status: F Test: CALCIUM LEVEL; Value: 9.8; Range: 8.8-10.2; Units: MG/DL; Status: F Test Note: ; Units are mL/min/1.73 m2 Chronic Kidney Disease Staging per NKF: Stage I & II GFR >=60 Normal to Mildly Decreased Stage III GFR 30-59 Moderately Decreased Stage IV GFR 15-29 Severely Decreased Stage V GFR <15 Very Little GFR Left ESRD GFR <15 on MEDICAL CLAIMS ASSISTANT Lab Order: CBC with Diff; SPEC'M 08/22/16 15:33 Test: WHITE BLOOD COUNT; Value: 9.5; Range: 4.0-10.0; Units: K/mm3; Status: F Test: RED BLOOD COUNT; Value: 4.93; Range: 4.00-5.40; Units: M/mm3; Status: F Test: HEMOGLOBIN; Value: 13.5; Range: 12.0-16.0; Units: g/dl; Status: F Test: HEMATOCRIT; Value: 44.8; Range: 36.0-47.0; Units: %; Status: F Test: MEAN CORPUSCULAR VOLUME; Value: 90.8; Range: 80.0-96.0; Units: fl; Status: F Test: MEAN CORPUSCULAR HEMOGLOBIN; Value: 27.3; Range: 27.0-33.0; Units: pg; Status: F Test: MEAN CORPUSCULAR HGB CONC; Value: 30.1; Range: 32.0-36.5; Abnormal: Below low normal; Units: g/dl; Status: F Test: RED CELL DISTRIBUTION WIDTH; Value: 14.2; Range: 11.5-14.5; Units: %; Status: F Test: PLATELET COUNT, AUTOMATED; Value: 208; Range: 150-450; Units: k/mm3; Status: F Test: NEUTROPHILS %; Value: 92.0; Range: 36.0-66.0; Abnormal: Above high normal; Units: %; Status: F Test: LYMPH %; Value: 4.1; Range: 24.0-44.0; Abnormal: Below low normal; Units: %; Status: F Test: MONO %; Value: 3.1; Range: 0.0-5.0; Units: %; Status: F Test: EOS %; Value: 0.1; Range: 0.0-3.0; Units: %; Status: F Test: BASO %; Value: 0.1; Range: 0.0-1.0; Units: %; Status: F Test: LARGE UNSTAINED CELL %; Value: 0.7; Range: 0.0-4.0; Units: %; Status: F Test: NEUTROPHILS #; Value: 8.8; Range: 1.8-7.7; Abnormal: Above high normal; Units: K/mm3; Status: F Test: LYMPH #; Value: 0.4; Range: 1.5-4.5; Abnormal: Below low normal; Units: K/mm3; Status: F Test: MONO #; Value: 0.3; Range: 0.0-0.8; Units: K/mm3; Status: F Test: EOS #; Value: 0.0; Range: 0.0-0.50; Units: K/mm3; Status: F Test: BASO #; Value: 0.0; Range: 0.0-0.2; Units: K/mm3; Status: F Test: LARGE UNSTAINED CELL #; Value: 0.1; Range: 0.0-0.4; Units: K/mm3; Status: F Lab Order: Cardiac Injury Profile; SPEC'M 08/22/16 15:33 Test: CPK CREATINE PHOSPHOKINASE; Value: 81; Range: 26-192; Units: U/L; Status: F Test: CK-MB VALUE MASS; Value: 10.7; Range: 0.0-3.6; Abnormal: Above high normal; Units: NG/ML; Status: F Test: MB/CK RELATIVE INDEX; Value: 13.20; Range: < OR =4; Abnormal: Above high normal; Status: F Test Note: ; DIAGNOSIS CRITERIA MMB ng/ml Relative Index (RI) NON-AMI < or = 5 N/A FIGUEROA ZONE > 5 < or = 4 AMI > 5 > 4 Lab Order: Prothrombin Time Profile\E\INR; SPEC'M 08/22/16 15:33 Test: PROTHROMBIN TIME; Value: 12.9; Range: 12.3-14.5; Units: SECONDS; Status: F Test: INR; Value: 0.96; Status: F Test Note: ; THERAPUTIC HUMAN INR VALUES INDICATIONS NORMAL RANGES PROPHYLAXIS/TREATMENT OF: VENOUS THROMBOSIS 2.0-3.0 PULMONARY EMBOLISM 2.0-3.0 PREVENTION OF SYSTEMIC EMBOLISM FROM: TISSUE HEART VALVES 2.0-3.0 ACUTE MYOCARDIAL INFARCTION 2.0-3.0 VALVULAR HEART DISEASE 2.0-3.0 ATRIAL FIBRILLATION 2.0-3.0 MECHANICAL VALVES(HIGH RISK) 2.5-3.5 RECURRENT MYOCARDIAL INFARCTION 2.5-3.5 Lab Order: Troponin; [facility] 08/22/16 15:33 Test: TROPONIN I; Value: 0.76; Range: < 0.10; Abnormal: Above high normal; Units: NG/ML; Status: F Test Note: ; Troponin I Reference Interval for Currently LOCI: 99th Percentile= 0.00-0.045 ng/ml Risk Stratification: <= 0.10 ng/ml Decreased Risk for Adverse Clinical Events. 0.10-1.50 ng/ml Increased Risk for Adverse Clinical Events. Evaluation of additional criterion and/or repeat testing in 2-6 hours is suggested to rule out myocardial damage. >= 1.50 ng/ml Indicative of Myocardial Injury. Lab Order: Thyroid Profile; [facility] 15:33 Test: T UPTAKE; Value: 37; Range: 30-39; Units: %; Status: F Test: THYROXINE (T4); Value: 4.6; Range: 4.5-12.0; Units: UG/DL; Status: F Test: FREE THYROXINE INDEX; Value: 1.7; Range: 1.3-4.8; Units: %; Status: F Test: THYROID STIMULATING HORMONE; Value: 0.926; Range: 0.358-3.740; Units: uIU/ML; Status: F Lab Order: MAGNESIUM LEVEL; [facility] 08/22/16 15:33 Test: MAGNESIUM LEVEL; Value: 2.5; Range: 1.8-2.4; Abnormal: Above high normal; Units: MG/DL; Status: F Lab Order: CARDIAC MARKER PANEL; [facility] 08/22/16 17:33 Test: CPK CREATINE PHOSPHOKINASE; Value: 63; Range: 26-192; Units: U/L; Status: F Test: CK-MB VALUE MASS; Value: 7.9; Range: 0.0-3.6; Abnormal: Above high normal; Units: NG/ML; Status: F Test: MB/CK RELATIVE INDEX; Value: 12.53; Range: < OR =4; Abnormal: Above high normal; Status: F Test: TROPONIN I; Value: 0.68; Range: < 0.10; Abnormal: Above high normal; Units: NG/ML; Status: F Test Note: ; DIAGNOSIS CRITERIA MMB ng/ml Relative Index (RI) NON-AMI < or = 5 N/A FIGUEROA ZONE > 5 < or = 4 AMI > 5 > 4 Lab Order: CARDIAC MARKER PANEL; SPEC'M 08/22/16 19:53 Test: CPK CREATINE PHOSPHOKINASE; Value: 69; Range: 26-192; Units: U/L; Status: F Test: CK-MB VALUE MASS; Value: 8.6; Range: 0.0-3.6; Abnormal: Above high normal; Units: NG/ML; Status: F Test: MB/CK RELATIVE INDEX; Value: 12.46; Range: < OR =4; Abnormal: Above high normal; Status: F Test: TROPONIN I; Value: 0.88; Range: < 0.10; Abnormal: High; Units: NG/ML; Status: F Test Note: ; DIAGNOSIS CRITERIA MMB ng/ml Relative Index (RI) NON-AMI < or = 5 N/A FIGUEROA ZONE > 5 < or = 4 AMI > 5 > 4 Lab Order: URINALYSIS; SPEC'M 08/22/16 19:29 Test: APPEARANCE, URINE; Value: HAZY; Range: CLEAR; Status: F Test: COLOR, URINE; Value: YELLOW; Range: YELLOW; Status: F Test: PH,URINE; Value: 5.0; Range: 5.0-9.0; Units: UNITS; Status: F Test: SPECIFIC GRAVITY URINE AUTO; Value: 1.014; Range: 1.002-1.035; Status: F Test: PROTEIN, URINE AUTO; Value: 2+; Range: NEGATIVE; Abnormal: Above high normal; Units: mg/dL; Status: F Test: GLUCOSE, URINE (UA) AUTO; Value: NEGATIVE; Range: NEGATIVE; Units: mg/dL; Status: F Test: KETONE, URINE AUTO; Value: NEGATIVE; Range: NEGATIVE; Units: mg/dL; Status: F Test: UROBILINOGEN, URINE AUTO; Value: 0.2; Range: 0.0-2.0; Units: mg/dL; Status: F Test: BILIRUBIN, URINE AUTO; Value: NEGATIVE; Range: NEGATIVE; Status: F Test: NITRITE, URINE AUTO; Value: NEGATIVE; Range: NEGATIVE; Status: F Test: LEUKOCYTE ESTERASE, URINE AUTO; Value: 2+; Range: NEGATIVE; Abnormal: Above high normal; Status: F Test: BLOOD, URINE BLOOD; Value: NEGATIVE; Range: NEGATIVE; Status: F Test: WBC, URINE AUTO; Value: 18; Range: 0-3; Abnormal: Above high normal; Units: /HPF; Status: F Test: RBC, URINE AUTO; Value: 10; Range: 0-3; Abnormal: Above high normal; Units: /HPF; Status: F Test: BACTERIA, URINE AUTO; Value: 1+; Range: NEGATIVE; Abnormal: Above high normal; Status: F Test: SQUAMOUS EPITHELIAL CELL UR AU; Value: 2; Range: 0-6; Units: /HPF; Status: F Test: TRANSITIONAL EPITHELIAL AUTO; Value: <1; Range: NONE; Units: /HPF; Status: F Test: MUCUS, URINE; Value: SMALL; Range: NEGATIVE; Status: F Test: HYALINE CAST, URINE AUTO; Value: 27; Range: 0-1; Units: /LPF; Status: F Test: AMORPHOUS SEDIMENT; Value: SMALL; Range: NEGATIVE; Abnormal: Above high normal; Status: F Lab Order: BRAIN NATIURETIC PEPTIDE; SPEC'M 08/22/16 19:05 Test: BRAIN NATRIURETIC PEPTIDE; Value: 1270; Range: <100; Abnormal: Above high normal; Units: PG/ML; Status: F Lab Order: LIVER PROFILE; SPEC'M 08/22/16 19:05 Test: AST/SGOT; Value: 42; Range: 15-37; Abnormal: Above high normal; Units: U/L; Status: F Test: ALT/SGPT; Value: 38; Range: 12-78; Units: U/L; Status: F Test: ALKALINE PHOSPHATASE; Value: 130; Range: 45-117; Abnormal: Above high normal; Units: U/L; Status: F Test: BILIRUBIN,TOTAL; Value: 0.4; Range: 0.2-1.0; Units: MG/DL; Status: F Test: BILIRUBIN,DIRECT; Value: 0.1; Range: 0.0-0.2; Units: MG/DL; Status: F Test: TOTAL PROTEIN; Value: 6.4; Range: 6.4-8.2; Units: GM/DL; Status: F Test: ALBUMIN; Value: 3.1; Range: 3.2-5.2; Abnormal: Below low normal; Units: GM/DL; Status: F Test: ALBUMIN/GLOBULIN RATIO; Value: 0.94; Range: 1.00-1.93; Abnormal: Below low normal; Status: F Lab Order: SODIUM,RANDOM URINE; SPEC'M 08/22/16 19:29 Test: SODIUM,RANDOM URINE; Value: 43; Units: MEQ/L; Status: F Lab Order: CREATININE,RANDOM URINE; SPEC'M 08/22/16 19:29 Test: CREATININE,RANDOM URINE; Value: 62.1; Units: MG/DL; Status: F Lab Order: MAGNESIUM LEVEL; SPEC'M 08/22/16 19:05 Test: MAGNESIUM LEVEL; Value: 2.8; Range: 1.8-2.4; Abnormal: Above high normal; Units: MG/DL; Status: F Radiology Order: portable chest Test: portable chest REASON FOR EXAMINATION: Chest Pain; CHEST, ONE VIEW:; ; HISTORY: Chest pain.; ; COMPARISON: 05/03/2016.; ; A diffuse increase in interstitial markings is present in the lungs consistent; with chronic interstitial fibrosis. The cardiac silhouette is enlarged. The; pulmonary vasculature is prominent. An Vbhklw-M-Nsrw catheter is present in the; superior vena cava.; ; IMPRESSION:; ; 1. Chronic interstitial fibrosis.; ; 2. Cardiomegaly.; ; ; Signed by; Ishmael Walter MD 08/22/2016 06:55 P; Outcome: 17:20 Decision to Hospitalize by Provider. 11 20:58 Discharge Assessment: patient administered narcotics - no. The following High Risk logan Discharge criteria are identified: Yes, Admitted to ICU accompanied by nurse, with oxygen, on monitor, with chart. Condition: improved. No special radiology studies were completed. Property :Personal belongings accompany Pt. 21:17 Admission hand-off: Report called to [place] in ICU logan 21:27 Patient left the ED. jmb Signatures: Dispatcher [employer] Merlyn Lopeza, Publishing Manager Unit lbd Aparna Oliver RN RN kpj Celina Gottlieb,RN RN logan Clari Dhillon, Reg Reg gb Darcy Salcedo br3 Donita, Camille, FELT HAT MELLOWING MACHINE OPERATOR FELT HAT MELLOWING MACHINE OPERATOR yao Sheriff, Mila, FELT HAT MELLOWING MACHINE OPERATOR FELT HAT MELLOWING MACHINE OPERATOR ct3 Cici Tovar,RN RN js13 Paul Braun, DO DO cs11 Trevon Pierre,RN RN jmb Racheal Houston, DO DO bs6 Maria T Torres, Reg Reg [email or web address] Corrections: (The following items were deleted from the chart) 20:58 18:44 Pulse 135bpm; Monitor; Pulse Ox 93%; js13 logan Chart Complete MTDD
--- NOTE | 2016-08-24 22:29 | EDDOCDS ---
Physician Documentation [facility] Name: Allyson Martinez Age: 66 yrs Sex: Female : 1950 Arrival Date: 08/22/2016 Time: 15:02 Bed 1 Private MD: Siva Allen Disposition: 08/22/16 17:20 Hospitalization ordered by Domenic Cuevas for Inpatient Admission. Preliminary diagnosis are Tachycardia, unspecified, Chronic combined systolic (congestive) and diastolic (congestive) heart failure, Renal tubulo-interstitial disease, unspecified. - Bed requested for M ICU. - Status is Inpatient Admission. jmb - Condition is Stable. - Problem is an ongoing problem. - Symptoms have improved. Historical: - Allergies: Canasa; Erythromycin; Gemfibrozil; Lipitor; PENICILLINS (Rash); steroids; TETRACYCLINES; Tussionex Pennkinetic ER; Zocor; - Home Meds: 1. amitriptyline 10 mg Oral tab 1 tab daily for Fibromyalgia 2. Carafate 1 gram Oral tab 1 gram 4 times per day 3. Drisdol 50,000 unit Oral cap 1 cap monthly 4. ferrous sulfate 324 mg (65 mg iron) Oral TbEC twice a day 5. gabapentin 600 mg oral tab three times a day 6. prednisone 60 mg Oral tab once daily 7. Oxygen 3L daily 8. insulin levemir 55 unit daily 9. Novolog 100 unit/mL Sub-Q soln sliding scale 10. Metamucil Smooth Texture Oral pack daily 11. Zantac 150 mg Oral tab 1 tab once daily 12. Lasix 40 mg Oral tab 1 tab once daily 13. aspirin 81 mg Oral tab 1 tab once daily 14. allopurinol 100 mg Oral tab 2 tabs once daily 15. CellCept 500 mg Oral tab 2 tabs 2 TABS IN AM AND 1 TAB IN PM 16. Prozac 20 mg Oral cap 1 cap once daily 17. Reclast 5 mg/100 mL intravenous soln YEARLY 18. Xopenex 1.25 mg/3 mL Nebulizer nebu 3 mL 3 times per day 19. Valtrex 500 mg Oral tab 2 tabs 3 times per day 20. Percocet 5-325 mg Oral tab 1 tab every 8 hours - PMHx: Anemia; Antisynthetase Syndrome; aortic stenosis; Degenerative disc disease; Diabetes - IDDM: controlled; Fibromyalgia; Hiatal Hernia; Interstitial Lung Fibrosis; Osteoarthritis; Polymyositis; Shingles; Sinus Tarsi Syndrome; Sleep Apnea w/ CPAP; - PSHx: TRANS CATHETER AORTA VALVE REPLACEMENT; Tonsillectomy; Cholecystectomy; Arthroscopy, Knee- Right; Cataract Surgery- Bilateral; - Social history: Smoking status: Patient states was never smoker of tobacco. No barriers to communication noted, The patient speaks fluent [place]ibian. - Family history: Not pertinent. - : The pt / caregiver states he / she is not on anticoagulants. Home medication list is obtained from the patient. - Exposure Risk Screening:: None identified. Vital Signs: 08/22 15:19 BP 146 / 66; Pulse 148; Resp 22; Temp 99.1(O); Pulse Ox 95% on 3 lpm NC; Weight 100.7 ct3 kg / 222.01 lbs (R); Height 5 ft. 2 in. (157.48 cm); Pain 0/10; 15:45 BP 169 / 72 (auto/); js13 15:45 Pulse 148 MON; Resp 18; Pulse Ox 97% on 3 lpm NC; js13 15:51 Pulse 148 MON; Resp 18; Pulse Ox 97% on 3 lpm NC; js13 15:52 BP 177 / 69 (auto/); js13 15:55 Pulse 147; js13 15:59 BP 156 / 73 (auto/); js13 15:59 Pulse 145 MON; Resp 18; Pulse Ox 97% on 3 lpm NC; js13 15:59 Pulse 145; js13 16:04 BP 148 / 66 (auto/); js13 16:04 Pulse 144 MON; Resp 18; Pulse Ox 96% on 3 lpm NC; js13 16:05 Pulse 143; js13 16:09 BP 140 / 63 (auto/); js13 16:09 Pulse 143 MON; Resp 15; Pulse Ox 97% on 3 lpm NC; js13 16:14 BP 141 / 66 (auto/); js13 16:14 Pulse 143 MON; Resp 20; Pulse Ox 96% on 3 lpm NC; js13 16:19 BP 132 / 60 (auto/); js13 16:19 Pulse 143 MON; Resp 20; Pulse Ox 97% on 3 lpm NC; js13 16:24 BP 129 / 60 (auto/); js13 16:24 Pulse 142 MON; Resp 20; Pulse Ox 97% on 3 lpm NC; js13 16:29 BP 132 / 64 (auto/); js13 16:29 Pulse 141 MON; Resp 20; Pulse Ox 96% on 3 lpm NC; js13 16:34 BP 127 / 61 (auto/); js13 16:34 Pulse 142 MON; Resp 20; Pulse Ox 96% on 3 lpm NC; js13 16:39 BP 136 / 65 (auto/); js13 16:39 Pulse 144 MON; Resp 20; Pulse Ox 97% on 3 lpm NC; js13 16:44 BP 142 / 72 (auto/); js13 16:44 Pulse 144 MON; Resp 20; Pulse Ox 97% on 3 lpm NC; js13 16:49 BP 150 / 75 (auto/); js13 16:49 Pulse 142 MON; Resp 20; Pulse Ox 97% on 3 lpm NC; js13 16:54 BP 135 / 67 (auto/); js13 16:54 Pulse 143 MON; Resp 20; Pulse Ox 97% on 3 lpm NC; js13 16:59 BP 136 / 68 (auto/); js13 16:59 Pulse 144 MON; Resp 20; Pulse Ox 97% on 3 lpm NC; js13 17:04 BP 138 / 76 (auto/); js13 17:04 Pulse 143 MON; Resp 20; Pulse Ox 96% on 3 lpm NC; js13 17:09 BP 137 / 73 (auto/); js13 17:09 Pulse 144 MON; Resp 20; Pulse Ox 97% on 3 lpm NC; js13 17:14 BP 154 / 67 (auto/); js13 17:14 Pulse 142 MON; Resp 20; Pulse Ox 97% on 3 lpm NC; js13 17:19 BP 148 / 69 (auto/); js13 17:19 Pulse 144 MON; Resp 20; Pulse Ox 96% on 3 lpm NC; js13 17:24 BP 142 / 67 (auto/); js13 17:24 Pulse 143 MON; Resp 20; Pulse Ox 96% on 3 lpm NC; js13 17:29 BP 143 / 70 (auto/); js13 17:29 Pulse 142 MON; Resp 20; Pulse Ox 96% on 3 lpm NC; js13 17:34 BP 136 / 98 (auto/); js13 17:34 Pulse 142 MON; Resp 20; Pulse Ox 97% on 3 lpm NC; js13 17:44 BP 139 / 70 (auto/); js13 17:44 Pulse 143 MON; Pulse Ox 96% ; js13 17:49 BP 140 / 72 (auto/); js13 17:49 Pulse 142 MON; js13 17:54 BP 139 / 68 (auto/); js13 17:54 Pulse 143 MON; js13 17:59 BP 149 / 68 (auto/); js13 17:59 Pulse 143 MON; Pulse Ox 97% ; js13 18:04 BP 150 / 67 (auto/); js13 18:04 Pulse 141 MON; Pulse Ox 97% ; js13 18:09 BP 145 / 65 (auto/); js13 18:09 Pulse 138 MON; Pulse Ox 96% ; js13 18:14 BP 160 / 86 (auto/); js13 18:14 Pulse 139 MON; Pulse Ox 96% ; js13 18:19 BP 152 / 70 (auto/); js13 18:19 Pulse 138 MON; Pulse Ox 98% ; js13 18:24 BP 153 / 71 (auto/); js13 18:24 Pulse 141 MON; Pulse Ox 97% ; js13 18:29 BP 148 / 72 (auto/); js13 18:29 Pulse 142 MON; Pulse Ox 98% ; js13 18:34 BP 153 / 74 (auto/); js13 18:34 Pulse 142 MON; Pulse Ox 97% ; js13 18:39 BP 164 / 72 (auto/); js13 18:39 Pulse 141 MON; Pulse Ox 97% ; js13 18:44 BP 142 / 66 (auto/); js13 18:44 Pulse 135 MON; Resp 24; Pulse Ox 93% ; logan 18:49 BP 156 / 58 (auto/); js13 18:49 Pulse 138 MON; Resp 18; Pulse Ox 94% on 3 lpm NC; js13 19:10 Pulse 139 MON; Resp 28 S; Pulse Ox 96% ; logan 19:15 BP 157 / 67 (auto/); logan 19:56 Pulse 97; logan 20:01 BP 186 / 98 (auto/); Pulse 92; Resp 22; Pulse Ox 95% on 3 lpm NC; logan 21:02 Pulse 99 MON; Resp 22 S; Pulse Ox 98% ; logan 21:03 BP 180 / 79 (auto/); logan 15:19 Body Mass Index 40.60 (100.70 kg, 157.48 cm) ct3 MDM: 15:06 Bullion Weigher/Pulse Ox/q 30 min VS ordered. sd1 15:06 IV Saline Lock ordered. sd1 15:06 Rhythm Strip to chart ordered. sd1 15:06 Undress patient appropriately for examination ordered. sd1 15:07 portable chest Ordered. EDMS 15:07 Basic Metabolic Profile Ordered. EDMS 15:08 CBC with Diff Ordered. EDMS 15:08 Cardiac Injury Profile Ordered. EDMS 15:08 Prothrombin Time Profile\E\INR Ordered. EDMS 15:08 Troponin Ordered. EDMS 15:08 Thyroid Profile Ordered. EDMS 15:08 ECG WITH READING ER PHYS+CARDIAG ordered. EDMS 15:27 MAGNESIUM LEVEL Ordered. EDMS 15:37 Metoprolol 5 mg IVP every 5 minutes; Hold for SBP < 100 or HR < 60. x3 ordered. bs6 16:05 Metoprolol (Tartrate) 50 mg PO once ordered. bs6 16:19 [facility] [place] Hair Specialist Order ordered. bs6 16:27 Basic Metabolic Profile Reviewed. sd1 16:27 CBC with Diff Reviewed. sd1 16:27 Cardiac Injury Profile Reviewed. sd1 16:27 Troponin Reviewed. sd1 16:27 MAGNESIUM LEVEL Reviewed. sd1 16:27 Prothrombin Time Profile\E\INR Reviewed. sd1 16:27 Thyroid Profile Reviewed. sd1 16:28 Nitro-Bid Ointment 2 % 1 inches Transdermal once ordered. sd1 16:40 Furosemide 40 mg IVP once ordered. cs11 17:03 [facility] [place] [facility] Hair Specialist Order complete. lbd 17:10 BED REQUEST+ADM ordered. EDMS 17:11 CARDIAC MARKER PANEL Ordered. EDMS 17:23 Financial registration complete. [email or web address] 17:56 Admission / Observation Status ordered. EDMS 17:56 CARDIAC MARKER PANEL Ordered. EDMS 17:57 Digoxin 0.5 mg IVP once ordered. cs11 18:15 PHYSICAL THERAPY EVAL & TREAT ordered. EDMS 18:15 CPAP INPATIENT ordered. EDMS 18:19 [facility] [place] was scanned into [employer] and attached to record. [email or web address] 18:22 CARDIAC DIET - DASH ordered. EDMS 18:24 RENAL US Ordered. EDMS 18:25 ELECTROCARDIOGRAM ADULT ordered. EDMS 18:25 URINALYSIS Ordered. EDMS 18:25 URINE CULTURE Ordered. EDMS 18:29 ECHOCARD,DOPPLER/COLOR FLOW ordered. EDMS 18:29 BRAIN NATIURETIC PEPTIDE Ordered. EDMS 18:40 LIVER PROFILE Ordered. EDMS 18:42 SODIUM,RANDOM URINE Ordered. EDMS 18:42 CREATININE,RANDOM URINE Ordered. EDMS 18:42 BLOOD CULTURES Ordered. EDMS 18:42 BLOOD CULTURES Ordered. EDMS 19:15 MAGNESIUM LEVEL Ordered. EDMS 19:32 COMPLETE BLOOD COUNT Ordered. EDMS 19:32 RENAL PROFILE Ordered. EDMS 19:46 amiodarone 150 mg IVP once ordered. logan 19:53 amiodarone- Slow load (1mg/min) 360 mg IV at 33 mL/hr continuous over 6 hrs; logan 360mg/200mL D5W ordered. 20:11 BRAIN NATIURETIC PEPTIDE Ordered. EDMS 20:32 CARDIAC MARKER PANEL Ordered. EDMS 08/23 09:25 T-Sheet-- Draft Copy was scanned into [employer] and attached to record. gb Administered Medications: 08/22 15:50 Drug: Metoprolol 5 mg [metoprolol 5 mg/5 mL intravenous solution (5 mL)] Route: IVP; [facility] Site: right antecubital; 15:55 Drug: Metoprolol 5 mg [metoprolol 5 mg/5 mL intravenous solution (5 mL)] Route: IVP; [facility] Site: right antecubital; 15:55 Follow up: Pulse 147 bpm; Response: Cardiac Rhythm is unchanged 13 15:59 Follow up: Pulse 145 bpm; Response: Cardiac Rhythm is unchanged [facility] 16:00 Drug: Metoprolol 5 mg [metoprolol 5 mg/5 mL intravenous solution (5 mL)] Route: IVP; [facility] Site: right antecubital; 16:05 Follow up: Pulse 143 bpm; Response: Cardiac Rhythm is unchanged [facility] 16:11 Drug: Metoprolol 50 mg [metoprolol tartrate 25 mg tablet (2 tabs)] Route: PO; [facility] 16:44 Drug: Nitro-Bid 1 inches [Nitro-Bid 2 % transdermal ointment (1 inches)] Route: [facility] Transdermal; Site: anterior chest wall; 16:45 Drug: Furosemide 40 mg [furosemide 10 mg/mL injection solution (4 mL)] Route: IVP; [facility] Site: right antecubital; 18:03 Drug: Digoxin 0.5 mg [digoxin 250 mcg/mL injection solution (2 mL)] Route: IVP; Site: js13 right antecubital; 19:46 Drug: amiodarone 150 mg [amiodarone 150 mg/100 mL (1.5 mg/mL) in dextrose, iso-osmotic loagn IV (100 mL)] Route: IVP; Site: right antecubital; 19:56 Follow up: Pulse 97 bpm logan 19:59 Drug: amiodarone- Slow load (1mg/min) 360 mg [amiodarone 360 mg/200 mL (1.8 mg/mL) in logan dextrose, iso-osmotic IV] Route: IV; Rate: 33 mL/hr; Infused Over: 6 hrs; Site: right antecubital; Signatures: Dispatcher [employer] EDMS Rubi Armstrong MD MD sd1 Sharita Kelsey, Coding File Clerk Unit lbd Celina GottliebRN STEVO logan Clari Dhillon, Reg Reg gb Cici Tovar RN RN js13 Paul Braun, DO DO cs11 Trevon PierreRN RN Racheal Kelley, DO DO bs6 Kristin Kaiser, RN Maria T Duarte mem, Reg Reg ks16 The chart was reviewed and I authenticate all verbal orders and agree with the evaluation and treatment provided.Corrections: (The following items were deleted from the chart) 15:28 15:08 MAGNESIUM LEVEL+LAB ordered. EDMS EDMS 18:22 17:56 REGULAR DIET ordered. EDMS EDMS 19:14 18:29 MAGNESIUM LEVEL ordered. EDMS EDMS 20:12 19:32 DIGOXIN LEVEL ordered. EDMS EDMS 20:32 19:31 CARDIAC MARKER PANEL ordered. EDMS EDMS Attachments: 18:19 [facility] Payment Agreement [email or web address] 08/23 09:25 T-Sheet-- Draft Copy gb Chart Complete MTDD
[2016-08-25] VITALS (8 sets, daily range): BP systolic 122–156; BP diastolic 56–82
[2016-08-25 04:51] LABS: MEAN CORPUSCULAR HEMOGLOBIN 27.2 pg (27.0-33.0); MEAN CORPUSCULAR HGB CONC 30.7 g/dl (32.0-36.5); MEAN CORPUSCULAR VOLUME 88.4 fl (80.0-96.0); RED CELL DISTRIBUTION WIDTH 14.4 % (11.5-14.5); WHITE BLOOD COUNT 8.2 K/mm3 (4.0-10.0)
[2016-08-25] MEDS: METOPROLOL TART 25 MG TABLET PO SCH ×4 (05:13→23:42)
[2016-08-25 05:17] LABS: ALBUMIN 2.5 GM/DL (3.2-5.2); CALCIUM LEVEL 8.8 MG/DL (8.8-10.2); CREATININE FOR GFR 1.46 MG/DL (0.55-1.02); DIGOXIN LEVEL 1.3 NG/ML (0.5-2.0); GLOMERULAR FILTRATION RATE 38.3 (>45); PHOSPHORUS LEVEL 3.2 MG/DL (2.5-4.9); POTASSIUM SERUM 3.9 MEQ/L (3.5-5.1)
[2016-08-25] MEDS: HumaLOG INSULIN (NovoLOG) PER UNIT SC SCH ×4 (07:30→21:00)
--- NOTE | 2016-08-25 08:08 | IPN ---
DATE: 08/25/2016 Mrs. Martinez tells me that she is feeling little bit better. She had a good night and was able to sleep. She is still very short of breath but better than 2 days ago. Denies any chest discomfort. She remains in rate-controlled atrial flutter. Vital signs: Blood pressure 140/61, heart rate is in 70s. She is afebrile. Saturation is 99% on 3 liters of oxygen by nasal cannula. Her fluid balance yesterday was slightly negative. Weight is documented 91.9 kg. She is alert and oriented and appropriate. Her jugular venous pulse (JVP) does not appear elevated. Lung findings are unchanged. She still has this very fine Velcro type of crackles mostly over the bases and the air movement is decent. Heart exam irregular rhythm. No gallop. Murmur at the base is unchanged. Abdomen is soft. There is a trace peripheral edema. Neurologically, she is intact. Laboratory gilliam: Her CBC remains normal. Basic metabolic panel: Potassium is 3.9, BUN 58, creatinine 1.5. Her GFR is 38 and platelet count 81,000. Her digoxin level was 1.3. ASSESSMENT AND PLAN: Mrs. Martinez is a 66-year-old female who has history of TAVR a little more than 2 years ago and also history of polymyositis/pulmonary fibrosis. She presented with atrial flutter with rapid ventricular response and associated congestive heart failure. It is likely that she has tachycardia induced cardiomyopathy, her left ventricular (LV) systolic function is severely reduced. I do not appreciate much evidence for volume overloaded state. As far as the atrial flutter is concerned, will continue on rate control for the time being. I do not believe that she is a good candidate for transesophageal (TE) cardioversion for several reasons, but most importantly I am concerned about her respiratory status and that she would not tolerate the procedure. Consequently, I will continue current regimen. She has been anticoagulated with Pradaxa. I am still using renally adjusted dose even though she probably could tolerate full dose. As her renal function is still not stable, I will continue reduced dose though and will increase it depending where her creatinine stabilizes. As far as management of heart failure is concerned, I do not believe there is much volume overload any more. I introduced low dose of angiotensin -converting enzyme (LETITIA) inhibitor yesterday. Her creatinine has deteriorated slightly. Nevertheless, I will not make any changes today. I do not want to advance the dose until I have a feeling that the creatinine is stabilizing. As far as disposition is concerned, she has fairly poor social support, she has been living with her 91-year-old father. manager office services have been involved.
[2016-08-25] MEDS: ALLOPURINOL 100 MG TAB PO SCH ×2 (08:58→21:00)
[2016-08-25] MEDS: PANTOPRAZOLE 40MG TAB (PROTONIX) PO SCH (08:58)
[2016-08-25] MEDS: FLUoxetine 20 MG CAP PO SCH (08:58)
[2016-08-25] MEDS: ASPIRIN 81 MG ENTERIC TAB PO SCH (08:58)
[2016-08-25] MEDS: FERROUS SULFATE 325MG TAB PO SCH ×2 (08:58→21:00)
[2016-08-25] MEDS: predniSONE 10 MG TAB PO SCH (08:58)
[2016-08-25] MEDS: DABIGATRAN ETEXILATE 75 MG CAP (PRADAXA) PO SCH ×2 (08:59→20:59)
[2016-08-25] MEDS: DIGOXIN 0.125 MG TAB PO SCH (08:59)
[2016-08-25] MEDS: ASCORBIC ACID 500 MG TAB PO SCH (08:59)
[2016-08-25] MEDS: LISINOPRIL *2.5 MG* TAB PO SCH (08:59)
[2016-08-25] MEDS: FUROSEMIDE 40 MG/4 ML VIAL (J1940) IV SCH (09:00)
[2016-08-25] MEDS: MYCOPHENOLATE MOFETIL 250 MG CAP (J7517) PO SCH ×2 (09:00→20:59)
[2016-08-25] MEDS: BACTRIM 160MG/800MG DS TAB PO SCH ×2 (09:00→21:00)
[2016-08-25] MEDS: ISOSORBIDE MON. (IMDUR) 30 MG XR TAB PO SCH (09:00)
[2016-08-25] MEDS: METAMUCIL (PSYLLIUM) PACKET PO SCH (09:00)
--- NOTE | 2016-08-25 11:54 | ECHO ---
DATE OF PROCEDURE: 08/23/2016 DATE OF : 03/23/1960 AGE: 66 REFERRING PROVIDER: Dr. Asael Li. PATIENT LOCATION: Room 4203. REASON FOR ECHOCARDIOGRAM: Shortness of breath. 2D MEASUREMENTS: IVS: 1.2 cm LV: 5.3 cm LVPW: 1.2 cm LA: 4.0 cm Aorta: 2.0 cm IVC: 2.0 cm DOPPLER MEASUREMENTS: Peak velocity across the aortic valve: 1.7 m/s Peak velocity across the LVOT: 0.68 m/s Mitral E: 1.4 Maximum tricuspid valve velocity: 3.3 m/s 2D COMMENTS: 1. Normal left ventricular size and left ventricular wall thickness but with severely depressed global left ventricular systolic function. The anterior septum and apex were akinetic. Only the basal portion of the anterior septum seems to be moises. The inferior wall was markedly hypokinetic. The anterior lateral wall seems to be moving but mildly hypokinetic. The estimated global left ventricular systolic function is 20%. 2. Borderline enlarged left atrium. Normal right atrium and right ventricle. 3. The atrial septum appeared to be normal without evidence of defect or shunt. 4. Normal aortic root. 5. Trace pericardial effusion was noted posteriorly, no evidence of cardiac tamponade. 6. A bioprosthetic valve was noted in the aortic valve position without any significant stenosis. Mildly calcified mitral annulus with normal anterior mitral valve leaflet motion. Normal tricuspid valve. The pulmonic valve and proximal pulmonary artery branches were not well visualized. 7. The inferior vena cava was borderline enlarged. DOPPLER: It detects mild to moderate aortic regurgitation, moderate mitral regurgitation and moderate tricuspid regurgitation, as well as mild pulmonary regurgitation. The calculated pulmonary artery systolic pressure varies between 40 to 50 mmHg. A restricted mitral inflow pattern was noted represented by a sharp deceleration in the mitral E flow pattern. IMPRESSION: 1. Severe global left ventricular systolic dysfunction with regional wall motion abnormalities consistent with history of coronary artery disease. Assessment of the left ventricular diastolic function was limited but the mitral E flow velocity appeared to be restrictive in nature. 2. Bioprosthetic aortic valve with mild to moderate aortic regurgitation but no significant stenosis. 3. Mitral annulus calcification with moderate mitral regurgitation and borderline enlarged left atrium. 4. Mild to moderate tricuspid regurgitation with moderate to severe pulmonary hypertension. There may be more severe pulmonary hypertension. Not mentioned above, a D-shape appearance of the ventricular septum was noted in diastole. 5. Mild pulmonic regurgitation. 6. Trace pericardial effusion. There are also findings consistent with left pleural effusion.
[2016-08-25] MEDS ORDERED: SLF 3 ML SYR IV PRN (13:30)
[2016-08-25] MEDS: SLF 3 ML SYR IV SCH ×2 (14:00→21:02)
--- NOTE | 2016-08-25 17:55 | IPN ---
DATE: 08/25/2016 SUBJECTIVE: The patient is seen and examined. No acute events overnight. Denies any chest pain, pressure or discomfort. Denies any fevers or chills. Patient much better with rate control on telemetry. VITAL SIGNS: Temperature 98.9, pulse 101, respirations 22, blood pressure 122/72, pulse oximetry 96% on four liters nasal cannula. LABORATORY DATA: WBC 8.2, hemoglobin and hematocrit 12.3 over 40.1, platelets 173. Chemistry: Sodium 141, potassium 3.9, chloride 104, bicarbonate 30, BUN 58, creatinine 1.46. PHYSICAL EXAMINATION: GENERAL: The patient morbidly obese, alert and oriented times three, no acute distress. HEENT: Normocephalic, atraumatic. CARDIAC: Irregularly irregular. Mild tachycardia. S1, S2. Distant heart sounds. PULMONARY: Bilaterally clear to auscultation. No wheezes, rales, or rhonchi. ABDOMEN: Soft, nontender, nondistended. EXTREMITIES: No clubbing, cyanosis or edema ASSESSMENT AND PLAN: This is a 66-year-old female patient with underlying medical history of severe aortic stenosis status post transcatheter aortic valve replacement (TAVR) in 2013, polymyositis, pulmonary fibrosis on three liters oxygen at home 24 a day, insulin-dependent type 2 diabetes, obstructive sleep apnea on continuous positive airway pressure (CPAP), and other comorbidities, presented with shortness of breath and found to be in rapid atrial flutter. 1. Atrial flutter with rapid ventricular response. Cardiology consulted. Patient was given amiodarone. Currently on digoxin and metoprolol. Anticoagulation with Pradaxa. Telemetry appreciated. Followup cardiology recommendations. 2. Severe pulmonary fibrosis. The patient is oxygen dependent on three liters oxygen at home. Followup oxygen saturations. 3. Polymyositis. Continue steroids. Outpatient followup. 4. Insulin-dependent diabetes. Insulin as ordered. Basal bolus along with mealtime protocol. Adjust as needed. 5. Obstructive sleep apnea. CPAP at night. 6. Vitamin D deficiency. Continue supplementation. 7. Acute on chronic systolic heart failure in the setting of tachycardia. Ejection fraction 10% to 15%. The patient might be tachycardic in compensation for the low ejection fraction. Cardiology consulted. Patient was diuresed. Echocardiogram is appreciated. Continue angiotension-converting enzyme (LETITIA) inhibitors, digoxin and beta blockers as ordered. 8. Hypertension. Continue blood pressure medication as ordered. 9. Chronic kidney disease. Followup blood urea nitrogen (BUN) and creatinine. Adjust medication as needed. 10. Gastroesophageal reflux disease (GERD). Continue proton pump inhibitor (PPI). 11. Iron deficiency. Continue supplementation. 12. Deep venous thrombosis (DVT) prophylaxis. Patient on Pradaxa, started for atrial flutter. DISPOSITION: Patient and family services (PFS) consulted for home services. The patient refused placement. Pending further cardiology recommendations, physical therapy, clinical improvement. Patient with severe cardiopulmonary disease. Poor overall prognosis. DO NOT RESUSCITATE (DNR), DO NOT INTUBATE (DNI).
[2016-08-25] MEDS: FAMOTIDINE 20 MG TAB PO SCH (20:59)
[2016-08-25] MEDS: LEVEMIR (INSULIN DETEMIR) 1 UNITS/0.01ML SC SCH (21:01)
[2016-08-25] MEDS: PERCOCET 5MG/325MG TAB PO PRN (23:18)
[2016-08-26 04:37] VITALS: BP 117/69
[2016-08-26] MEDS: METOPROLOL TART 25 MG TABLET PO SCH ×3 (05:09→17:08)
[2016-08-26] MEDS: SLF 3 ML SYR IV SCH ×3 (05:12→21:27)
[2016-08-26 05:46] LABS: MEAN CORPUSCULAR HEMOGLOBIN 27.3 pg (27.0-33.0); MEAN CORPUSCULAR HGB CONC 30.6 g/dl (32.0-36.5); MEAN CORPUSCULAR VOLUME 89.1 fl (80.0-96.0); RED CELL DISTRIBUTION WIDTH 14.5 % (11.5-14.5); WHITE BLOOD COUNT 8.1 K/mm3 (4.0-10.0)
[2016-08-26 06:03] LABS: ALBUMIN 2.5 GM/DL (3.2-5.2); CALCIUM LEVEL 9.3 MG/DL (8.8-10.2); CREATININE FOR GFR 1.91 MG/DL (0.55-1.02); GLOMERULAR FILTRATION RATE 28.1 (>45); PHOSPHORUS LEVEL 3.6 MG/DL (2.5-4.9); POTASSIUM SERUM 4.2 MEQ/L (3.5-5.1)
[2016-08-26 08:00] VITALS: BP 137/60
[2016-08-26] MEDS: HumaLOG INSULIN (NovoLOG) PER UNIT SC SCH ×4 (08:40→21:32)
[2016-08-26] MEDS: BACTRIM 160MG/800MG DS TAB PO SCH ×2 (08:40→21:24)
[2016-08-26] MEDS: PANTOPRAZOLE 40MG TAB (PROTONIX) PO SCH (08:40)
[2016-08-26] MEDS: METAMUCIL (PSYLLIUM) PACKET PO SCH (08:40)
[2016-08-26] MEDS: DABIGATRAN ETEXILATE 75 MG CAP (PRADAXA) PO SCH ×2 (08:40→21:24)
[2016-08-26] MEDS: ISOSORBIDE MON. (IMDUR) 30 MG XR TAB PO SCH (08:41)
[2016-08-26] MEDS: ALLOPURINOL 100 MG TAB PO SCH ×2 (08:42→21:24)
[2016-08-26] MEDS: DIGOXIN 0.125 MG TAB PO SCH (08:42)
[2016-08-26] MEDS: ASPIRIN 81 MG ENTERIC TAB PO SCH (08:42)
[2016-08-26] MEDS: FLUoxetine 20 MG CAP PO SCH (08:42)
[2016-08-26] MEDS: FERROUS SULFATE 325MG TAB PO SCH ×2 (08:42→21:24)
[2016-08-26] MEDS: ASCORBIC ACID 500 MG TAB PO SCH (08:42)
[2016-08-26] MEDS: MYCOPHENOLATE MOFETIL 250 MG CAP (J7517) PO SCH ×2 (08:42→21:24)
[2016-08-26] MEDS: predniSONE 10 MG TAB PO SCH (08:42)
[2016-08-26] MEDS: PERCOCET 5MG/325MG TAB PO PRN (08:47)
[2016-08-26 12:00] VITALS: BP 148/70
--- NOTE | 2016-08-26 12:36 | IPN ---
DATE: 08/26/2016 Mrs. Martinez is feeling about the same. She still gets short of breath extremely with minimal activity. Denies any resting dyspnea as such. She was able to sleep with her C-PAP last night. She continues to complain about feeling exhausted. Vital signs this morning, blood pressure 137/60. Heart rate is in 60s to 80s. She is in controlled atrial flutter somewhat surprisingly. She had an episode at around midnight when she had about 20 minutes of rapid heart rate, but for the most part she has been well controlled. Saturation is 100% on 3 liters oxygen by nasal cannula. She is afebrile. Her jugular venous pulse (JVP) is somewhat challenging to assess due to her body habitus, but it does not appear elevated on my exam. Lungs are relatively clear with only minimal end inspiratory fine crackles consistent with pulmonary fibrosis. Heart exam is irregularly irregular rhythm. I do not appreciate any gallop or rub, murmur is unchanged. Abdomen is obese, but soft. There is only trace peripheral edema. Neurologically, she is generally weak but I do not appreciate any focal signs. Weight was documented 98.2 kg, which almost certainly is incorrect compared to the readings yesterday. Laboratory-gilliam, basic metabolic panel: potassium 4.2, BUN 66, creatinine 1.9 for a GFR 28 and glucose 105. CBC: hemoglobin 13.1, hematocrit 42.8 and platelet count 196,000. ASSESSMENT/PLAN: Mrs. Martinez is a 66-year-old female who has history of polymyositis/pulmonary fibrosis who presented with atrial flutter and rapid ventricular response and was found to have severe left ventricular systolic dysfunction. Even though there are segmental wall motion abnormalities on her echocardiogram, I suspect that this is tachycardia induced cardiomyopathy. At this point, the rate is reasonably well-controlled on combination of digoxin and metoprolol. I tried to introduce lisinopril, but unfortunately her renal function deteriorated and consequently I am afraid that she will not be able to tolerate the medication. I will try to give her hydralazine in combination with isosorbide instead with holding parameters for blood pressure. She seems to be oxygenating reasonably well so I do not have objection to holding her diuretics today. Her prognosis remains poor. I am certainly hoping that there will be some recovery of LV systolic function, but it is not guaranteed. In combination with her severe underlying lung disease and polymyositis, I am quite pessimistic about her prognosis.
[2016-08-26] MEDS: **hydrALAZINE** 10 MG TAB PO SCH ×2 (14:55→21:23)
[2016-08-26] MEDS: ISOSORBIDE DIN (ISORDIL) 10 MG TAB PO SCH ×2 (14:56→21:22)
[2016-08-26 16:00] VITALS: BP 112/51
[2016-08-26 20:23] VITALS: BP 148/57
--- NOTE | 2016-08-26 20:36 | IPN ---
DATE: 08/26/2016 Patient seen and examined. Generalized weakness. Denies any fevers or chills. Denies any chest pain, pressure, or discomfort. Patient comfortable. VITAL SIGNS: Temperature 96.4, pulse 61, respirations 18, blood pressure 112/51, pulse oximetry 97% on 3 liters nasal cannula. LABORATORY DATA: WBC 8.1, hemoglobin and hematocrit 13.1/42.8, platelets 196. Chemistry: Sodium 139, potassium 4.2, chloride 103, bicarbonate 28, BUN 66, creatinine 1.9. PHYSICAL EXAMINATION: GENERAL: Patient morbidly obese. Alert and oriented times three in no acute distress. HEENT: Normocephalic, atraumatic. CARDIAC: Irregularly irregular. Mild tachycardia. S1, S2. Distant heart sounds. PULMONARY: Bilaterally clear to auscultation. No wheezes, rales, or rhonchi. ABDOMEN: Soft, nontender, nondistended. Positive bowel sounds. EXTREMITIES: No edema, bilateral lower extremities. ASSESSMENT AND PLAN: This is a 66-year-old female patient with underlying medical history of severe aortic stenosis, status post transcatheter aortic valve replacement (TAVR) in 2013, polymyositis, pulmonary fibrosis, on 3 liters oxygen at home 24 hours a day, insulin-dependent diabetes, type 2, obstructive sleep apnea, on continuous positive airway pressure (CPAP) at night, presented with shortness of breath, found to have atrial flutter with rapid ventricular response. 1. Atrial flutter with rapid ventricular response. Cardiology consulted. Telemetry monitoring. Given amiodarone. Currently on digoxin and metoprolol. Anticoagulation with Pradaxa. Telemetry monitoring. Followup cardiology recommendations. 2. Severe pulmonary fibrosis, oxygen dependent on 3 liters. Followup oxygen saturations. 3. Polymyositis. Continue outpatient medication. 4. Insulin-dependent diabetes. Insulin basal bolus. Followup basal along with mealtime protocol. Adjust as needed. Followup fingersticks. 5. Obstructive sleep apnea. Continue CPAP. 6. Vitamin D deficiency. Oral supplementation. 7. Acute on chronic systolic congestive heart failure in the setting of tachycardia with ejection fraction 10-15%. Tachycardia might be compensation for low ejection fraction. Cardiology consulted. Diuresis as per cardiology. Echocardiogram. Patient initially started on angiotensin-converting enzyme (LETITIA), but given worsening kidney function will place the patient on hydralazine and isosorbide dinitrate as per cardiology. Digoxin, beta malachi as ordered. 8. Hypertension. Continue hydralazine and isosorbide dinitrate, digoxin, beta blockers. Monitor blood pressure., 9. Acute on chronic renal insufficiency. Followup BUN and creatinine. Possible etiology LETITIA inhibitors and cardiorenal. 10. Gastroesophageal reflux disease (GERD). Continue proton pump inhibitor (PPI). 11. Iron deficiency anemia. Supplementation. 12. Deep vein thrombosis (DVT) prophylaxis. Patient on Pradaxa for atrial flutter. DISPOSITION: Patient and family services (PFS) consulted for home services. Patient refused placement. Followup cardiology for further recommendations, physical therapy. Patient with severe cardiopulmonary disease. Poor prognosis. DO NOT RESUSCITATE/DO NOT INTUBATE.
[2016-08-26] MEDS: FAMOTIDINE 20 MG TAB PO SCH (21:24)
[2016-08-26] MEDS: LEVEMIR (INSULIN DETEMIR) 1 UNITS/0.01ML SC SCH (21:25)
[2016-08-27 00:13] VITALS: BP 149/67
[2016-08-27] MEDS: METOPROLOL TART 25 MG TABLET PO SCH ×2 (00:25→05:44)
[2016-08-27 05:40] VITALS: BP 149/64
[2016-08-27] MEDS: **hydrALAZINE** 10 MG TAB PO SCH ×3 (05:44→22:04)
[2016-08-27] MEDS: SLF 3 ML SYR IV SCH ×3 (05:45→22:05)
[2016-08-27] MEDS: ISOSORBIDE DIN (ISORDIL) 10 MG TAB PO SCH ×3 (05:45→22:03)
[2016-08-27 05:52] LABS: MEAN CORPUSCULAR HEMOGLOBIN 27.8 pg (27.0-33.0); MEAN CORPUSCULAR HGB CONC 31.2 g/dl (32.0-36.5); RED CELL DISTRIBUTION WIDTH 15.5 % (11.5-14.5); WHITE BLOOD COUNT 8.7 K/mm3 (4.0-10.0)
[2016-08-27 05:59] LABS: ALBUMIN 2.5 GM/DL (3.2-5.2); CALCIUM LEVEL 9.2 MG/DL (8.8-10.2); CREATININE FOR GFR 1.92 MG/DL (0.55-1.02); GLOMERULAR FILTRATION RATE 27.9 (>45); PHOSPHORUS LEVEL 3.4 MG/DL (2.5-4.9); POTASSIUM SERUM 4.7 MEQ/L (3.5-5.1)
[2016-08-27] MEDS: METAMUCIL (PSYLLIUM) PACKET PO SCH (07:32)
[2016-08-27] MEDS: HumaLOG INSULIN (NovoLOG) PER UNIT SC SCH ×4 (07:32→21:00)
[2016-08-27] MEDS: DABIGATRAN ETEXILATE 75 MG CAP (PRADAXA) PO SCH ×2 (07:33→22:03)
[2016-08-27] MEDS: MYCOPHENOLATE MOFETIL 250 MG CAP (J7517) PO SCH ×2 (07:33→22:03)
[2016-08-27] MEDS: ASPIRIN 81 MG ENTERIC TAB PO SCH (07:34)
[2016-08-27] MEDS: BACTRIM 160MG/800MG DS TAB PO SCH ×2 (07:34→22:04)
[2016-08-27] MEDS: ASCORBIC ACID 500 MG TAB PO SCH (07:34)
[2016-08-27] MEDS: ALLOPURINOL 100 MG TAB PO SCH ×2 (07:35→22:03)
[2016-08-27] MEDS: FLUoxetine 20 MG CAP PO SCH (07:35)
[2016-08-27] MEDS: DIGOXIN 0.125 MG TAB PO SCH (07:35)
[2016-08-27] MEDS: FERROUS SULFATE 325MG TAB PO SCH ×2 (07:35→22:03)
[2016-08-27] MEDS: predniSONE 10 MG TAB PO SCH (07:35)
[2016-08-27] MEDS: LIDOCAINE 5% OINT 30 GM TOP SCH (07:42)
[2016-08-27] MEDS: PANTOPRAZOLE 40MG TAB (PROTONIX) PO SCH (07:46)
[2016-08-27 08:00] VITALS: BP 164/71
[2016-08-27] MEDS ORDERED: INFLUENZA VIRUS VACCINE HIGH DOSE 0.5 ML SYRINGE (90662) IM ONE (09:00)
[2016-08-27] MEDS ORDERED: PREVNAR 13 VACCINE SYRINGE (CPT CODE:90670) IM ONE (09:00)
[2016-08-27] MEDS: FUROSEMIDE 40 MG/4 ML VIAL (J1940) IV SCH (09:15)
[2016-08-27 12:00] VITALS: BP 134/73
--- NOTE | 2016-08-27 12:07 | IPN ---
DATE OF SERVICE: 08/27/2016 Mrs. Martinez feels about the same, even though she tells me that she is actually feeling better. She is comfortable at rest, but she gets extremely short of breath with fairly minimal amount of activity. There has been no paroxysmal nocturnal dyspnea (PND), and she was able to sleep. She continues to feel very tired. Her heart rate continues to be reasonably well-controlled for the most part, but when she starts moving around, it accelerates promptly, and it takes often 15-30 minutes before she slows down again. Vital signs this morning: Blood pressure was 164/71, heart rate 122. She was afebrile. Saturation 98% on 3 liters of oxygen by nasal cannula. Her jugular venous pressure (JVP) is somewhat challenging to assess, but it does not appear grossly high. Lungs: Examination is unchanged. She is still has this fine end inspiratory Velcro-like crackles, mostly over both bases. Abdomen is soft without tenderness. There is no significant peripheral edema, maybe trace. Neurologically, there is generalized weakness but no focal abnormalities. LABORATORY-JOSEPH: Normal basic metabolic panel but for BUN 66 and creatinine 1.9 for GFR 28. Glucose is 102, and CBC remains normal. Her hemoglobin is a little bit lower, 11.7 today. ASSESSMENT AND PLAN: Mrs. Martinez is a 66-year-old female who has underlying pulmonary fibrosis/polymyositis. She presented with atrial flutter with rapid ventricular response and resulting congestive heart failure. 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 So far, her condition has not improved much, and I am afraid that it is not realistic that it will improve much due to her underlying lung disease. On top of it, now she is a second problem. As far as management of atrial fibrillation is concerned, I am going to increase the metoprolol to 50 mg every 8 hours because she still has episode of tachycardia. I will continue low-dose digoxin. She has been anticoagulated with Pradaxa 75 mg twice a day. As far as congestive heart failure is concerned, she does not appear to be grossly volume overloaded. Will continue the current dose of furosemide 40 mg daily. I tried to introduce small-dose angiotensin-converting enzyme (LETITIA) inhibitor but, unfortunately, it led to fairly rapid onset of creatinine increase. Consequently, currently, she is only on combination of hydralazine and isosorbide. I will continue the same. Her prognosis in a long run is very poor but even in the short run is guarded. I still think that she will be able to go home in near future provided she has better support. fire services plumber have been involved. I believe, in my opinion, she should go to assisted, but she does not want to.
[2016-08-27] MEDS: METOPROLOL TART 50 MG TAB PO SCH ×2 (13:29→22:03)
[2016-08-27] MEDS: PERCOCET 5MG/325MG TAB PO PRN (13:30)
[2016-08-27 16:00] VITALS: BP 132/64
[2016-08-27 21:15] VITALS: BP 152/60
[2016-08-27] MEDS: FAMOTIDINE 20 MG TAB PO SCH (22:02)
[2016-08-27] MEDS: LEVEMIR (INSULIN DETEMIR) 1 UNITS/0.01ML SC SCH (22:04)
[2016-08-28 00:05] VITALS: BP 140/72
[2016-08-28 05:24] VITALS: BP 138/64
[2016-08-28 05:31] LABS: MEAN CORPUSCULAR HEMOGLOBIN 27.3 pg (27.0-33.0); MEAN CORPUSCULAR HGB CONC 31.3 g/dl (32.0-36.5); MEAN CORPUSCULAR VOLUME 87.2 fl (80.0-96.0); RED CELL DISTRIBUTION WIDTH 14.8 % (11.5-14.5); WHITE BLOOD COUNT 8.8 K/mm3 (4.0-10.0)
[2016-08-28] MEDS: ISOSORBIDE DIN (ISORDIL) 10 MG TAB PO SCH ×3 (05:37→20:58)
[2016-08-28] MEDS: **hydrALAZINE** 10 MG TAB PO SCH ×3 (05:37→20:59)
[2016-08-28] MEDS: METOPROLOL TART 50 MG TAB PO SCH (05:38)
[2016-08-28] MEDS: PERCOCET 5MG/325MG TAB PO PRN (05:38)
[2016-08-28] MEDS: SLF 3 ML SYR IV SCH ×3 (05:38→21:00)
[2016-08-28 05:46] LABS: ALBUMIN 2.7 GM/DL (3.2-5.2); CALCIUM LEVEL 9.2 MG/DL (8.8-10.2); CREATININE FOR GFR 1.87 MG/DL (0.55-1.02); GLOMERULAR FILTRATION RATE 28.8 (>45); PHOSPHORUS LEVEL 3.4 MG/DL (2.5-4.9)
[2016-08-28 08:00] VITALS: BP 145/63
[2016-08-28] MEDS: DABIGATRAN ETEXILATE 75 MG CAP (PRADAXA) PO SCH ×2 (08:29→20:57)
[2016-08-28] MEDS: PANTOPRAZOLE 40MG TAB (PROTONIX) PO SCH (08:29)
[2016-08-28] MEDS: ALLOPURINOL 100 MG TAB PO SCH ×2 (08:29→20:56)
[2016-08-28] MEDS: HumaLOG INSULIN (NovoLOG) PER UNIT SC SCH ×4 (08:29→21:00)
[2016-08-28] MEDS: FLUoxetine 20 MG CAP PO SCH (08:29)
[2016-08-28] MEDS: DIGOXIN 0.125 MG TAB PO SCH (08:30)
[2016-08-28] MEDS: predniSONE 10 MG TAB PO SCH (08:31)
[2016-08-28] MEDS: ASCORBIC ACID 500 MG TAB PO SCH (08:31)
[2016-08-28] MEDS: MYCOPHENOLATE MOFETIL 250 MG CAP (J7517) PO SCH ×2 (08:31→20:57)
[2016-08-28] MEDS: FERROUS SULFATE 325MG TAB PO SCH ×2 (08:31→20:57)
[2016-08-28] MEDS: BACTRIM 160MG/800MG DS TAB PO SCH (08:31)
[2016-08-28] MEDS: ASPIRIN 81 MG ENTERIC TAB PO SCH (08:31)
[2016-08-28] MEDS: FUROSEMIDE 40 MG/4 ML VIAL (J1940) IV SCH (08:32)
[2016-08-28] MEDS: LIDOCAINE 5% OINT 30 GM TOP SCH (08:33)
[2016-08-28] MEDS: METAMUCIL (PSYLLIUM) PACKET PO SCH (08:33)
--- NOTE | 2016-08-28 08:57 | IPN ---
DATE: 08/28/2016 Mrs. Martinez tells me that she is feeling a little bit better than yesterday but still gets short of breath with minimal activity. Denies any chest pain. She was sleeping in a recliner tonight. Vital signs: Blood pressure 138/64. Heart rate fluctuates. She was mostly controlled for most of the day yesterday, but then during the night hours again, heart rate was up to 130s and she still in 110s this morning. Is atrial flutter. She is afebrile. Saturation 94% on 3 liters of oxygen by nasal cannula. Fluid balance yesterday mildly negative. Weight 96.8. Jugular venous pulse (JVP) does not look up. Lungs are still relatively clear with only faint end inspiratory crackles at the base. Heart exam: Irregular tachycardia. Trace edema is noted. Lab gilliam: Basic metabolic panel: Potassium 5.0, BUN 67, creatinine 1.9, GFR 29, and glucose 128. CBC: Hemoglobin 12.2, hematocrit 38, and platelet count 25,000. ASSESSMENT AND PLAN: Mrs. Martinez is a 66-year-old female who has polymyositis/pulmonary fibrosis and now developed atrial flutter, which turns out to have been difficult to rate control with rapid ventricular rate and likely secondary tachycardia induced cardiomyopathy. Initially, I gave her amiodarone to accomplish better rate control, which was effective fairly promptly in combination with digoxin and beta-blockers, but after I discontinued the medication her heart rate accelerated. At this point, I am going to advance the Toprol to succinate form to 100 mg twice a day. Hopefully this will finally accomplish better and more consistent rate control. I will check the digoxin level again tomorrow because she has renal insufficiency and I am not convinced that she reached steady state yet. Hopefully in this combination she will be rate control. Otherwise, I believe that she will be able to go home soon. Unfortunately, her social situation is not favorable and clinical social work aide are working on this issue as well.
[2016-08-28] MEDS: METOPROLOL SUCC (TopROL XL) 100MG *XL* TAB PO SCH ×2 (09:29→21:00)
--- NOTE | 2016-08-28 11:29 | IPNPDOC ---
Assessment/Plan Date Seen The patient was seen on 08/28/16. Problems Problems: (1) Atrial flutter Status: Acute Problem Text: with rapid ventricular response on metoprolol, digoxin. pradaxa. rate still not well controlled. (2) Acute on chronic systolic congestive heart failure Status: Acute Problem Text: EF of 20% thought to be due to tachycardia induced cardiomyopathy on hydralazine , isosorbide, rate is being controlled by dig and metoprolol. 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 (4) Acute kidney injury Status: Acute Problem Text: due to congestive heart failure , bactrim bactrim stopped all meds to be adjusted by gfr (5) Pulmonary fibrosis Status: Chronic Problem Text: on prednisone and Cellcept also on bactrim as outpatient started by scuba diving instructor on aug 16 for lung inflammation as per patient. Dr Redmond [phone] (6) Chronic respiratory failure with hypoxia Status: Chronic (7) Polymyositis Status: Chronic Problem Text: on prednisone and Cellcept Dr Redmond [phone] (8) Diabetes Status: Chronic (9) HTN (hypertension) Status: Chronic (10) KASSY on CPAP Status: Chronic (11) Iron deficiency anemia Status: Chronic (12) GERD (gastroesophageal reflux disease) Status: Chronic (13) Gout Status: Chronic (14) Pulmonary hypertension Status: Chronic Problem Text: has severe pulmonary hypertension (15) History of aortic valve replacement with bioprosthetic valve Status: Chronic Problem Text: for aortic stenosis Plan / VTE VTE Prophylaxis Ordered?: Yes Plan / Urinary Catheter Reason for insertion/continuin: Other-document below Subjective Review of Systems CC/HPI The patient is a 66-year-old female admitted with a reason for visit of Atrial Flutter. Events since last encounter feeling a little better this morning , still sob with minimal exertion however ok at rest, no fever or chills, no nausea or vomiting no abdominal pain or diarrhea, pulse still rising to 120s on movement. Objective Physical Examination General Exam: Positive: Alert, No Acute Distress Eye Exam: Positive: Conjunctiva & lids normal, EOMI, PERRLA, Negative: Sclera icteric ENT Exam: Positive: Atraumatic, Mucous membr. moist/pink, Pharynx Normal Neck Exam: Positive: Supple, Negative: JVD, thyromegaly Chest Exam: Positive: Diminished, Rales Heart Exam: Positive: Irregular Rhythm, Normal S1, Normal S2, Tachycardic Telemetry: Positive: Other Telemetry: (a flutter), Tachycardia Abdomen Exam: Positive: Normal bowel sounds, Soft, Negative: Hepatospenomegaly, Tenderness Extremity Exam: Positive: Normal pulses, Negative: Clubbing, Cyanosis, Edema Vital Signs/I&O Vital Signs Date Time Temp Pulse Resp B/P Pulse Ox O2 Delivery O2 Flow Rate FiO2 08/28/16 09:29 104 145/63 08/28/16 08:00 Nasal Cannula 3.0 08/28/16 08:00 96.5 20 97 I&O- Last 24 Hours up to 6 AM 08/28/16 06:00 Intake Total 480 ml Output Total 1000 ml Balance -520 ml Laboratory Data Labs 24H Laboratory Tests 2 08/27/16 11:33: Bedside Glucose (Misc Panel) 184H 08/27/16 16:20: Bedside Glucose (Misc Panel) 174H 08/27/16 20:23: Bedside Glucose (Misc Panel) 177H 08/28/16 05:17: Albumin 2.7L, Blood Urea Nitrogen 67H, Creatinine 1.87H, Sodium Level 141, Potassium Level 5.0, Chloride Level 104, Carbon Dioxide Level 27, Anion Gap 10, Calcium Level 9.2, Glomerular Filtration Rate 28.8L, Phosphorus Level 3.4 CBC/BMP Laboratory Tests 08/28/16 05:17 Anion Gap 10, Red Blood Count 4.46, Mean Corpuscular Volume 87.2, Mean Corpuscular Hemoglobin 27.3, Mean Corpuscular Hemoglobin Concent 31.3 L, Red Cell Distribution Width 14.8 H FSBS Laboratory Tests Test 08/27/16 11:33 08/27/16 16:20 08/27/16 20:23 Range/Units Bedside Glucose (Misc Panel) 184 174 177 80-115 MG/DL Microbiology Microbiology 08/22/16 Blood Culture - Final, Complete NO GROWTH AFTER 5 DAYS 08/22/16 Blood Culture - Final, Complete NO GROWTH AFTER 5 DAYS 08/25/16 MRSA Screen - Final, Complete 08/22/16 MRSA Screen - Final, Complete 08/22/16 Urine Culture - Final, Complete ABUNDIO GEORGE MD Aug 28, 2016 11:29
[2016-08-28 11:59] VITALS: BP 140/67
--- NOTE | 2016-08-28 13:03 | IPN ---
DATE: 08/27/2016 SUBJECTIVE: The patient feels about the same or a little better. She is comfortable at rest; however, becomes extremely short of breath even on minimal activity. She said that she slept well. Continues to feel very tired. Denies any chest pain or palpations. Denies any fevers or chills. Denies any abdominal pain, nausea, vomiting or diarrhea. Heart rate at rest is pretty well controlled. However, on moving around it accelerates very fast and takes a long time to slow down. VITAL SIGNS: Temperature 97.1, pulse 133, respiratory rate 18, blood pressure 151/82, pulse oximetry 96% with 3 liters nasal cannula. GENERAL: The patient awake, alert, oriented times three, sitting up in bed in no acute distress. HEENT: Normocephalic, atraumatic. Moist mucous membranes. Anicteric eyes. CHEST: There is bilateral basal crackles. CARDIOVASCULAR: S1, S2 regular. No rub, murmur or gallop. ABDOMEN: Obese, soft, nontender. Bowel sounds are present. EXTREMITIES: There is 1 to 2+ bipedal edema. LABORATORY DATA: White blood count (WBC) 0.7, hemoglobin 11.7, platelets 174. Sodium 141, potassium 4.7, chloride 104, bicarbonate 29, BUN 66, creatine 1.9. Calcium 9.2, phosphorus 3.4. ASSESSMENT AND PLAN: This is a 66-year-old female with underlying history of severe aortic stenosis, status post transpedicular tubal replacement in 2013, polymyositis and pulmonary fibrosis with chronic hypoxic respiratory failure on 3 liters home oxygen, diabetes, obstructive sleep apnea on CPAP, presented with shortness of breath and found to have atrial flutters with rapid ventricular response and also systolic congestive heart failure with an ejection fraction (EF) of 10 to 15%. PLAN: 1. For atrial flutter and hyper-ventricular response, the patient's pulse rate can be addressed; however, becomes uncontrolled to 130s on minimal exertion. The patient's metoprolol dose has been increased to 50 mg every 8 hours. Digoxin, low-dose, has been continued. Acute and chronic congestive from systolic heart failure thought to be related to tachycardia-induced cardiomyopathy. The patient's treatment for heart failure is continued with Lasix 40 mg IV daily, as well as hydralazine, isosorbide. The patient is also on Pradaxa for her atrial flutter. 2. Polymyositis, pulmonary fibrosis. The patient is on mycophenolate mofetil 1000 mg twice a day, will continue. Also on prednisone 10 mg daily. 3. Diabetes. Will continue with Lantus and lispro insulin. 4. Gout. Will continue with allopurinol. Also will continue with CPAP. 5. Chronic respiratory failure with hypoxia. Will continue with 3 liters nasal cannula oxygen. 6. Gastroesophageal reflux disease (GERD). Will continue with proton pump inhibitor (PPI). 7. Iron deficiency anemia. Will continue with iron supplementation. 8. Deep vein thrombosis (DVT) prophylaxis has been ordered. 9. Gastrointestinal (GI) prophylaxis has been ordered. DISPOSITION: The patient refused placement. [facility] ([facility]) has been consulted for home services. The patient is DO NOT RESUSCITATE , DO NOT INTUBATE.
[2016-08-28 16:00] VITALS: BP 133/60
[2016-08-28 20:00] VITALS: BP 131/86
[2016-08-28] MEDS: FAMOTIDINE 20 MG TAB PO SCH (20:57)
[2016-08-28] MEDS: LEVEMIR (INSULIN DETEMIR) 1 UNITS/0.01ML SC SCH (20:59)
[2016-08-29] VITALS: BP 141/86
[2016-08-29] MEDS: PERCOCET 5MG/325MG TAB PO PRN ×2 (02:29→10:08)
[2016-08-29 04:00] VITALS: BP 109/53
[2016-08-29] MEDS: **hydrALAZINE** 10 MG TAB PO SCH ×3 (05:30→22:15)
[2016-08-29] MEDS: SLF 3 ML SYR IV SCH ×3 (05:33→22:15)
[2016-08-29] MEDS: ISOSORBIDE DIN (ISORDIL) 10 MG TAB PO SCH ×3 (05:33→22:16)
[2016-08-29 05:59] LABS: MEAN CORPUSCULAR HEMOGLOBIN 28.3 pg (27.0-33.0); MEAN CORPUSCULAR HGB CONC 31.8 g/dl (32.0-36.5); MEAN CORPUSCULAR VOLUME 88.8 fl (80.0-96.0); RED CELL DISTRIBUTION WIDTH 14.6 % (11.5-14.5); WHITE BLOOD COUNT 8.9 K/mm3 (4.0-10.0)
[2016-08-29 06:39] LABS: ALBUMIN 2.8 GM/DL (3.2-5.2); CALCIUM LEVEL 9.7 MG/DL (8.8-10.2); CREATININE FOR GFR 1.69 MG/DL (0.55-1.02); DIGOXIN LEVEL 1.6 NG/ML (0.5-2.0); GLOMERULAR FILTRATION RATE 32.3 (>45); PHOSPHORUS LEVEL 3.4 MG/DL (2.5-4.9); POTASSIUM SERUM 4.9 MEQ/L (3.5-5.1)
[2016-08-29 08:00] VITALS: BP 138/64
--- NOTE | 2016-08-29 08:10 | IPN ---
DATE: 08/29/2016 Allyson Martinez tells me that she is feeling better. She thinks that her breathing has improved slightly and she was able to sleep. She denies any chest discomfort or sensation of palpitations. Vital signs: Blood pressure 109/53, heart rate still fluctuates from 60s up to 130s. Surprisingly during the day she seems to be better rate control than at night. She is afebrile. Saturation is 94% on 3 liters of oxygen by nasal cannula. Her fluid balance yesterday was slightly negative. Documented weight 96 kg. She is alert and oriented, appropriate, sitting at bedside in her recliner. Her JVP does not appear elevated. Lungs are surprisingly clear to auscultation with only very minimal end inspiratory Velcro type of cracked crackles. Heart exam: Irregular rhythm. I do not appreciate a rub or murmur. Abdomen is soft, nontender. There is trace edema. Neurologically, besides generalized weakness, she is intact. CBC is normal. Basic metabolic panel: Potassium 4.9, BUN 66, creatinine 1.7 for GFR 33 and albumin is 2.8. Digoxin level is 1.6 ASSESSMENT/PLAN: Mrs. Martinez is a 66-year-old female who has pulmonary fibrosis/polymyositis. She presented with atrial flutter with rapid ventricular response and was found to have severe left ventricular systolic dysfunction. Even though by her echocardiogram, there is some segmental wall motion abnormality, I still suspect that this is most likely tachycardia induced cardiomyopathy because she had normal coronary angiogram before her TAVR a little more than 2 years ago. Her prognosis is certainly guarded. I still have a hard time controlling her rate but with now Toprol XL 100 mg twice a day and digoxin, she seems to be getting close as the higher level of metoprolol was introduced just yesterday, I do expect further improvement over next few days. I tried to introduce LETITIA inhibitors, but her renal function promptly deteriorated and consequently, she is on combination of hydralazine and isosorbide. From my perspective, she is close to discharge because I do not expect that I can improve her condition much. Unfortunately a social situation at home is not favorable as she lives with 91-year-old father. interlibrary loan services librarian are involved. I did not approach with the patient possibility of hospice care but it certainly is also an option as her prognosis, especially in longer horizon is certainly very poor. I did not make any medication adjustments today.
[2016-08-29] MEDS: HumaLOG INSULIN (NovoLOG) PER UNIT SC SCH ×4 (08:43→21:00)
[2016-08-29] MEDS: MYCOPHENOLATE MOFETIL 250 MG CAP (J7517) PO SCH ×2 (08:44→22:14)
[2016-08-29] MEDS: ASPIRIN 81 MG ENTERIC TAB PO SCH (08:45)
[2016-08-29] MEDS: FERROUS SULFATE 325MG TAB PO SCH ×2 (08:45→22:14)
[2016-08-29] MEDS: METOPROLOL SUCC (TopROL XL) 100MG *XL* TAB PO SCH ×2 (08:45→22:15)
[2016-08-29] MEDS: ALLOPURINOL 100 MG TAB PO SCH ×2 (08:45→22:14)
[2016-08-29] MEDS: FLUoxetine 20 MG CAP PO SCH (08:46)
[2016-08-29] MEDS: predniSONE 10 MG TAB PO SCH (08:46)
[2016-08-29] MEDS: METAMUCIL (PSYLLIUM) PACKET PO SCH (08:46)
[2016-08-29] MEDS: ASCORBIC ACID 500 MG TAB PO SCH (08:46)
[2016-08-29] MEDS: PANTOPRAZOLE 40MG TAB (PROTONIX) PO SCH (08:46)
[2016-08-29] MEDS: DIGOXIN 0.125 MG TAB PO SCH (08:47)
[2016-08-29] MEDS: FUROSEMIDE 40 MG/4 ML VIAL (J1940) IV SCH (08:52)
[2016-08-29] MEDS: LIDOCAINE 5% OINT 30 GM TOP SCH (08:53)
[2016-08-29] MEDS: DABIGATRAN ETEXILATE 75 MG CAP (PRADAXA) PO SCH ×2 (08:54→22:14)
--- NOTE | 2016-08-29 11:46 | IPN ---
DATE OF SERVICE: 08/29/2016 SUBJECTIVE: The patient tells me that she is feeling better. She is breathing easier. She denies chest pain, worsened shortness of breath, fevers, chills, nausea, vomiting at the present time. OBJECTIVE: VITAL SIGNS: Temperature 96.5, pulse 138, respiratory rate 20, blood pressure (BP) 138/64, oxygen (O2) saturation 95% on 3 liters nasal cannula. GENERAL: She is a frail obese elderly female, lying back in a recliner at a 60-degree angle. She does not appear to be in acute distress. HEENT: Cranial nerves II-XII are grossly intact. She has moist mucous membranes. There is no elevation in her central venous pressure. CARDIOVASCULAR EXAMINATION: S1, S2, irregularly irregular and tachycardic. RESPIRATORY EXAMINATION: Is fairly diminished throughout with some fine crackles. ABDOMINAL EXAMINATION: Obese. EXTREMITIES: There is trace edema bilaterally. LABORATORY STUDIES: WBC 8.9, hemoglobin 12.3 hematocrit 38.6, platelet count 216. Chemistry panel: Sodium 142, potassium 4.9, chloride 105, bicarbonate 29, BUN 66, creatinine 1.6 down from 1.8 yesterday. MICROBIOLOGY: Blood cultures are negative from 08/22/2016. Urine culture was negative from 08/22/2016. Methicillin-resistant Staphylococcus aureus (MRSA) screen has been negative. No new imaging. ASSESSMENT AND PLAN: This is a 66-year-old female with new-onset atrial flutter with rapid ventricular response. PROBLEMS: 1. New atrial flutter with rapid ventricular response. I have spoken with Dr. Rosario. She is on a titrated dose of metoprolol, digoxin, and Pradaxa. Dr. Rosario feels as though that her current level of control is about as good as we will be able to achieve at this time. I did speak with Dr. Rosario and reviewed the telemetry with him, and it does appear as though her heart rate is more controlled during the day and less so at night, perhaps secondary to an optimization of her continuous positive airway pressure (CPAP). I did also discuss with him my suspicion that her atrial flutter is secondary to her advancing pulmonary fibrosis, and I agree with him that this is likely the etiology for her severe systolic dysfunction with cardiomyopathy. I did discuss Hospice with the patient today at length. Her sister is a former Hospice nurse and has also been requesting information regarding this. I placed a Hospice consult. The patient understands Hospice, and she would like to have home Hospice if possible. We have not made any medication adjustments as of today. We will await what the patient's wishes are after having a discussion and her family and her Hospice. 2. Acute on chronic systolic heart failure. The patient is on a beta malachi, hydralazine, nitrate, Lasix, aspirin. I do not think her blood pressure could support the addition of Aldactone at this time. Likely, tachycardia-induced cardiomyopathy. 3. Acute kidney injury, improving, possibly secondary to Bactrim versus angiotensin-converting enzyme (LETITIA) inhibitor. For the time being, we will simply monitor her. I will hold off on restarting Bactrim. 4. Pulmonary fibrosis. The patient is continuing on her prednisone and Cellcept. She was reportedly told she had a 5-year prognosis 12 years ago. 5. Polymyositis. As above, on prednisone and Cellcept. 6. Chronic respiratory failure with hypoxia. She presently back to her baseline. 7. Type 2 diabetes. The patient is on sliding scale insulin. Her fingersticks are controlled. 8. Gout. The patient is on allopurinol. 9. Gastroesophageal reflux disease. The patient is on Pepcid. The patient is on Protonix. 10. Depression. The patient is on Prozac. 11. Obstructive sleep apnea. The patient is compliant with continuous positive airway pressure (CPAP). 12. Iron-deficiency anemia. The patient is on ferrous sulfate. 13. Pulmonary hypertension secondary to pulmonary fibrosis. 14. Bioprosthetic aortic valve replacement. The patient is also on Pradaxa for her atrial fibrillation. DISPOSITION: The patient's clinical status overall remains quite guarded. I suspect she may be able to be discharged home with Hospice as early as tomorrow if the family elects.
[2016-08-29 11:59] VITALS: BP 152/73
[2016-08-29 16:00] VITALS: BP 135/58
[2016-08-29 20:00] VITALS: BP 126/65
[2016-08-29] MEDS: LEVEMIR (INSULIN DETEMIR) 1 UNITS/0.01ML SC SCH (21:00)
[2016-08-29] MEDS: FAMOTIDINE 20 MG TAB PO SCH (22:14)
[2016-08-30] VITALS: BP 113/63
[2016-08-30 04:00] VITALS: BP 140/77
[2016-08-30] MEDS: ISOSORBIDE DIN (ISORDIL) 10 MG TAB PO SCH ×3 (04:25→21:32)
[2016-08-30] MEDS: **hydrALAZINE** 10 MG TAB PO SCH ×3 (04:25→21:34)
[2016-08-30] MEDS: SLF 3 ML SYR IV SCH ×3 (04:26→21:35)
[2016-08-30 07:27] LABS: MEAN CORPUSCULAR HEMOGLOBIN 27.3 pg (27.0-33.0); MEAN CORPUSCULAR HGB CONC 30.6 g/dl (32.0-36.5); MEAN CORPUSCULAR VOLUME 89.2 fl (80.0-96.0); RED CELL DISTRIBUTION WIDTH 14.7 % (11.5-14.5); WHITE BLOOD COUNT 7.8 K/mm3 (4.0-10.0)
[2016-08-30] MEDS: HumaLOG INSULIN (NovoLOG) PER UNIT SC SCH ×4 (07:30→21:00)
[2016-08-30 07:44] LABS: CALCIUM LEVEL 9.2 MG/DL (8.8-10.2); CREATININE FOR GFR 1.73 MG/DL (0.55-1.02); GLOMERULAR FILTRATION RATE 31.5 (>45); POTASSIUM SERUM 4.7 MEQ/L (3.5-5.1)
[2016-08-30 08:00] VITALS: BP 118/58
--- NOTE | 2016-08-30 08:15 | IPN ---
DATE: 08/30/2016 Mrs. Martinez feels about the same. She is relatively comfortable at rest, but gets rapidly short of breath with minimal activity. Unfortunately, heart rate remains rather erratic. At times, she is rate controlled, but at times her heart rate is still in the 130 range. She is afebrile and otherwise has no other complaints. Weight is 96.4 kg. Her jugular venous pulse (JVP) is not up. Lungs are relatively clear to auscultation. Heart exam is in regular tachycardia this morning. No gallop or rub. Abdomen is soft. There is no peripheral edema. Laboratory-gilliam, hemoglobin 11.9, hematocrit 39 and platelet count 211. Basic metabolic panel: potassium 4.7, BUN 67, creatinine 1.7 for a GFR of 31. ASSESSMENT/PLAN: Mrs. Martinez is a 66-year-old female with advanced polymyositis/pulmonary fibrosis and now complicated by atrial flutter with rapid ventricular response. It was initially well rate-controlled with IV amiodarone, but because I did not like to use the medication because of its potential for lung toxicity and replaced it with metoprolol and digoxin. Unfortunately, even on high dose metoprolol her rate is not adequate and I have no choice but to reintroduce amiodarone in oral form. I am going to stop the digoxin after this morning's dose to reduce the risk of toxicity. As far as congestive heart failure is concerned, she seems to be relatively euvolemic. She has severe LV systolic dysfunction. I suspect it is most likely due to tachycardia induced cardiomyopathy. We had a long discussion with the patient this morning and I discussed the situation later with a nursing staff and Dr. Felder. There was an option of hospice raised with the patient. I am not convinced that she is completely ready, but it looks like it is her inclination to proceed that way. She will meet with hospice probably today and will ultimately decide later on. MTDD
[2016-08-30] MEDS: DABIGATRAN ETEXILATE 75 MG CAP (PRADAXA) PO SCH ×2 (08:46→21:32)
[2016-08-30] MEDS: AMIODARONE 200 MG TAB (PACERONE) PO SCH ×2 (08:46→21:32)
[2016-08-30] MEDS: MYCOPHENOLATE MOFETIL 250 MG CAP (J7517) PO SCH ×2 (08:46→21:31)
[2016-08-30] MEDS: FUROSEMIDE 40 MG/4 ML VIAL (J1940) IV SCH (08:46)
[2016-08-30] MEDS: ASPIRIN 81 MG ENTERIC TAB PO SCH (08:46)
[2016-08-30] MEDS: ALLOPURINOL 100 MG TAB PO SCH ×2 (08:46→21:32)
[2016-08-30] MEDS: FERROUS SULFATE 325MG TAB PO SCH ×2 (08:46→21:33)
[2016-08-30] MEDS: DIGOXIN 0.125 MG TAB PO SCH (08:47)
[2016-08-30] MEDS: FLUoxetine 20 MG CAP PO SCH (08:47)
[2016-08-30] MEDS: ASCORBIC ACID 500 MG TAB PO SCH (08:47)
[2016-08-30] MEDS: predniSONE 10 MG TAB PO SCH (08:47)
[2016-08-30] MEDS: METOPROLOL SUCC (TopROL XL) 100MG *XL* TAB PO SCH ×2 (08:48→21:33)
[2016-08-30] MEDS: LIDOCAINE 5% OINT 30 GM TOP SCH (08:49)
[2016-08-30] MEDS: PANTOPRAZOLE 40MG TAB (PROTONIX) PO SCH (08:51)
[2016-08-30] MEDS ORDERED: BACTRIM 80MG/400MG TAB PO SCH (09:00)
[2016-08-30] MEDS: METAMUCIL (PSYLLIUM) PACKET PO SCH (11:18)
[2016-08-30 12:00] VITALS: BP 131/64
--- NOTE | 2016-08-30 12:45 | IPNPDOC ---
Date of Service/Time 08/30/16 Progress Note SUBJECTIVE: The patient complains of feeling tired but otherwise she tells me her breathing is at her baseline she denies chest pain lightheadedness dizziness nausea vomiting fevers or chills OBJECTIVE: PHYSICAL EXAMINATION: VITAL SIGNS: Persistently tachycardic baseline hypoxia otherwise Please see below. GENERAL: Frail obese elderly female lying back and recliner with her feet elevated she appears fatigued and lethargic but in no acute distress HEENT: Pupils are equally round reactive to light she has moist pedis membranes CARDIOVASCULAR: S1 S2 irregularly irregular tachycardic. RESPIRATORY: Diminished breath sounds at the bases fine crackles throughout. ABDOMINAL: His bowel sounds present abdomen soft EXTREMITIES: No appreciable edema LABORATORY DATA: Please see below. MICROBIOLOGY: Please see below. IMAGING: No new Echocardiogram: Severe global LV systolic dysfunction with regional wall motion abnormalities EF approximately 20%, bioprosthetic aortic valve moderate tricuspid regurg with moderate to severe pulmonary hypertension D shave appearance of the ventricle septum was noted in diastole. DVT prophylaxis ordered?: Pradaxa ASSESSMENT AND PLAN: This is a 66-year-old female with new onset difficult to control atrial flutter with severe systolic heart failure. Problem #1 new onset atrial flutter with rapid ventricular response: I spoke with Dr. 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 Unfortunately up until this point we have been unable to control her heart rate and as such I'm not optimistic about her ability to regain cardiac function but rather the longer precedes the worksite anticipated to get. The patient is on a beta malachi hydralazine nitrate Lasix aspirin I do not Think her blood pressure can support the addition of Aldactone at this time. Despite segmental wall motion abnormalities Dr. Rosario does not feel that this is related to coronary disease he may be correct. Problem #3 pulmonary fibrosis: Patient is continued on prednisone and CellCept she was reportedly told she had a 5 year prognosis grave than 12 years ago my concern is that this is the underlying problem which is driving her cardiac disease. Given that we are unable to adequately reverse her pulmonary disease feels so the patient has a terminal condition and is likely within the last 6 months of her life I have spoken with patient she understands is yesterday she was receptive to hospice care this morning she is not as interested she would like to return home with home health if possible but she is willing to adhere to meet with hospice today. I have asked physical therapy to begin working with patient once again to see if her returning home as a safe option if she is unable to be cleared by physical therapy and her home was not a safe disposition unfortunately I would not be able to in good conscience discharge her there knowing full well she is likely to return very quickly. The patient has chronic respiratory failure with hypoxia she is back to her baseline of 3 L O2 continuous Problem #4 acute kidney injury: The patient was on Bactrim and reportedly higher than anticipated dose she was also recently started on LETITIA inhibitor both of these been discontinued her renal function appears to have leveled off with a creatinine of approximately 1.7 for now we will simply monitor Problem #5 polymyositis: Please see above problem #3 Problem #6 type 2 diabetes: The patient on sliding scale insulin her fingersticks are controlled Problem #7 gout patient is on allopurinol Problem #8 gastroesophageal reflux disease: The patient is on Pepcid and Protonix Problem #9 depression the patient on Prozac Problem #10 obstructive sleep apnea the patient is compliant with CPAP Problem #11 iron deficiency anemia the patient on ferrous sulfate Problem #13 pulmonary hypertension: Secondary to polio fibrosis DISPOSITION: The patient's clinical status remains guarded I'm not optimistic about her ability to return home in a safe fashion despite her insistence on this we will continue to attempt to control her heart rate and have her work with physical therapy and follow-up her meeting with hospice later this afternoon. VS, I&O, 24H, Fishbone VS, I&O, 24H, Fishbone Vital Signs Date Time Temp Pulse Resp B/P Pulse Ox O2 Delivery O2 Flow Rate FiO2 08/30/16 12:00 97.1 131 20 131/64 95 Nasal Cannula 3.0 I&O- Last 24 Hours up to 6 AM 08/30/16 06:00 Intake Total 700 ml Output Total 350 ml Balance 350 ml Laboratory Tests 2 08/29/16 16:43: Bedside Glucose (Misc Panel) 130H 08/29/16 21:26: Bedside Glucose (Misc Panel) 102 08/30/16 07:11: Anion Gap 6L, Blood Urea Nitrogen 67H, Creatinine 1.73H, Sodium Level 144, Potassium Level 4.7, Chloride Level 106, Carbon Dioxide Level 32, Calcium Level 9.2, Glomerular Filtration Rate 31.5L 08/30/16 11:40: Bedside Glucose (Misc Panel) 190H Laboratory Tests 08/30/16 07:11 Calcium Level 9.2, Red Blood Count 4.37, Mean Corpuscular Volume 89.2, Mean Corpuscular Hemoglobin 27.3, Mean Corpuscular Hemoglobin Concent 30.6 L, Red Cell Distribution Width 14.7 H Microbiology 08/22/16 Blood Culture - Final, Complete NO GROWTH AFTER 5 DAYS 08/22/16 Blood Culture - Final, Complete NO GROWTH AFTER 5 DAYS 08/25/16 MRSA Screen - Final, Complete 08/22/16 MRSA Screen - Final, Complete 08/22/16 Urine Culture - Final, Complete AMBER CUEVAS MD Aug 30, 2016 12:45
[2016-08-30] MEDS: PERCOCET 5MG/325MG TAB PO PRN (13:36)
[2016-08-30 16:00] VITALS: BP 111/79
[2016-08-30 19:26] VITALS: BP 146/67
[2016-08-30] MEDS: FAMOTIDINE 20 MG TAB PO SCH (21:33)
[2016-08-30] MEDS: LEVEMIR (INSULIN DETEMIR) 1 UNITS/0.01ML SC SCH (21:35)
[2016-08-31 00:10] VITALS: BP 138/72
[2016-08-31 05:41] VITALS: BP 145/70
[2016-08-31] MEDS: ISOSORBIDE DIN (ISORDIL) 10 MG TAB PO SCH ×3 (05:54→20:52)
[2016-08-31] MEDS: SLF 3 ML SYR IV SCH ×3 (05:55→20:54)
[2016-08-31] MEDS: **hydrALAZINE** 10 MG TAB PO SCH ×3 (05:55→20:51)
[2016-08-31] MEDS: HumaLOG INSULIN (NovoLOG) PER UNIT SC SCH ×4 (06:33→20:54)
[2016-08-31 07:08] LABS: MEAN CORPUSCULAR HEMOGLOBIN 28.1 pg (27.0-33.0); MEAN CORPUSCULAR HGB CONC 31.4 g/dl (32.0-36.5); MEAN CORPUSCULAR VOLUME 89.6 fl (80.0-96.0); RED CELL DISTRIBUTION WIDTH 14.8 % (11.5-14.5); WHITE BLOOD COUNT 6.8 K/mm3 (4.0-10.0)
[2016-08-31 07:24] LABS: CALCIUM LEVEL 8.8 MG/DL (8.8-10.2); CREATININE FOR GFR 2.38 MG/DL (0.55-1.02); GLOMERULAR FILTRATION RATE 21.8 (>45)
[2016-08-31 08:00] VITALS: BP 164/72
[2016-08-31] MEDS: DABIGATRAN ETEXILATE 75 MG CAP (PRADAXA) PO SCH ×2 (08:16→20:51)
[2016-08-31] MEDS: MYCOPHENOLATE MOFETIL 250 MG CAP (J7517) PO SCH ×2 (08:16→20:50)
[2016-08-31] MEDS: FUROSEMIDE 40 MG/4 ML VIAL (J1940) IV SCH (08:17)
[2016-08-31] MEDS: FLUoxetine 20 MG CAP PO SCH (08:17)
[2016-08-31] MEDS: ASPIRIN 81 MG ENTERIC TAB PO SCH (08:17)
[2016-08-31] MEDS: ALLOPURINOL 100 MG TAB PO SCH ×2 (08:17→20:51)
[2016-08-31] MEDS: predniSONE 10 MG TAB PO SCH (08:17)
[2016-08-31] MEDS: AMIODARONE 200 MG TAB (PACERONE) PO SCH ×2 (08:17→20:51)
[2016-08-31] MEDS: METAMUCIL (PSYLLIUM) PACKET PO SCH (08:17)
[2016-08-31] MEDS: PANTOPRAZOLE 40MG TAB (PROTONIX) PO SCH (08:17)
[2016-08-31] MEDS: FERROUS SULFATE 325MG TAB PO SCH ×2 (08:18→20:52)
[2016-08-31] MEDS: METOPROLOL SUCC (TopROL XL) 100MG *XL* TAB PO SCH ×2 (08:18→20:51)
[2016-08-31] MEDS: ASCORBIC ACID 500 MG TAB PO SCH (08:18)
[2016-08-31] MEDS: LIDOCAINE 5% OINT 30 GM TOP SCH (08:19)
[2016-08-31 12:00] VITALS: BP 161/63
--- NOTE | 2016-08-31 15:13 | IPNPDOC ---
Date of Service/Time 08/31/16 Progress Note SUBJECTIVE: The patient complains that she wants to go home she is sick of being in the hospital she denies any chest pain she tells me she is feeling better than she has in several days she denies shortness of breath and lightheadedness dizziness nausea vomiting fevers or chills OBJECTIVE: PHYSICAL EXAMINATION: VITAL SIGNS: Not S tachycardic otherwise Please see below. GENERAL: Frail obese elderly female lying back and recliner with her feet elevated she appears fatigued but in no acute distress HEENT: Pupils are equally round reactive to light she has moist pedis membranes CARDIOVASCULAR: S1 S2 irregularly irregular mildly tachycardic. RESPIRATORY: Diminished breath sounds at the bases fine crackles throughout. ABDOMINAL: His bowel sounds present abdomen soft EXTREMITIES: No appreciable edema LABORATORY DATA: Worsening renal function Please see below. MICROBIOLOGY: Please see below. IMAGING: No new Echocardiogram: Severe global LV systolic dysfunction with regional wall motion abnormalities EF approximately 20%, bioprosthetic aortic valve moderate tricuspid regurg with moderate to severe pulmonary hypertension D shave appearance of the ventricle septum was noted in diastole. DVT prophylaxis ordered?: Pradaxa ASSESSMENT AND PLAN: This is a 66-year-old female with new onset difficult to control atrial flutter with severe systolic heart failure. Problem #1 new onset atrial flutter with rapid ventricular response: The patient has been started on amiodarone this is not ideal given that she has pulmonary fibrosis however her heart rate is improved with this and other agents have not been able to adequately control her rate the patient is anticoagulated with Pradaxa it is most likely that her new onset atrial flutter is being driven by her severe pulmonary hypertension and her ongoing pulmonary fibrosis. 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 At this time the patient's heart rate is improved I suspect this becomes more therapeutic with amiodarone we may achieve better control this is her best chance of reversing her severe systolic dysfunction. The patient is on a beta malachi hydralazine nitrateaspirin I do not Think her blood pressure can support the addition of Aldactone at this time. Despite segmental wall motion abnormalities Dr. Rosario and I do not not feel that this is related to coronary disease. Problem #3 pulmonary fibrosis: Patient is continued on prednisone and CellCept she was reportedly told she had a 5 year prognosis greater than 12 years ago my concern is that this is the underlying problem which is driving her cardiac disease. Given that we are unable to adequately reverse her pulmonary disease the patient has a terminal condition and is likely within the last 6 months of her life I have spoken with patient she understands stand and agreed to meet hospice today however She tells me she is not interested in their services at this time. I have asked physical therapy to begin working with patient once again to see if her returning home as a safe option even if only wheelchair- bound if she is unable to be cleared by physical therapy and her home was not a safe disposition unfortunately I would not be able to in good conscience discharge her there knowing full well she is likely to return very quickly. The patient insists to me this morning she is leaving the hospital I did inform her the risks of potentially falling and with her comorbidities that be potentially fatal and did tell her that I cannot good conscience discharge her from the hospital at this point in her current condition with her worsening renal function her suboptimal rate control for her atrial fibrillation and her inability to mobilize effectively I did inform her if she was sleeping possible she would have to do so AGAINST MEDICAL ADVICE and I did spend significant amount time bedside discouraging her from this. The patient has chronic respiratory failure with hypoxia she is back to her baseline of 3 L O2 continuous Problem #4 acute kidney injury: The patient was on Bactrim and reportedly higher than anticipated dose she was also recently started on LETITIA inhibitor both of these been discontinued her renal function appeared to have leveled off however today it is worsened I suspect she may have been over diuresed I will discontinue her IV Lasix provided with gentle IV fluids and reassess tomorrow Problem #5 polymyositis: Please see above problem #3 Problem #6 type 2 diabetes: The patient on sliding scale insulin her fingersticks are controlled Problem #7 gout patient is on allopurinol Problem #8 gastroesophageal reflux disease: The patient is on Pepcid and Protonix Problem #9 depression the patient on Prozac Problem #10 obstructive sleep apnea the patient is compliant with CPAP Problem #11 iron deficiency anemia the patient on ferrous sulfate Problem #13 pulmonary hypertension: Secondary to pulmonary fibrosis DISPOSITION: The patient's clinical status remains guarded I'm not optimistic about her ability to return home in a safe fashion despite her insistence on this we will continue to attempt to control her heart rate and have her work with physical therapy and follow-up her meeting with hospice later this afternoon. Unfortunately hospice was unable to meet her over the last 2 days VS, I&O, 24H, Fishbone VS, I&O, 24H, Fishbone Vital Signs Date Time Temp Pulse Resp B/P Pulse Ox O2 Delivery O2 Flow Rate FiO2 08/31/16 14:29 193/74 08/31/16 12:00 96.9 93 18 95 Nasal Cannula 3.0 I&O- Last 24 Hours up to 6 AM 08/31/16 06:00 Intake Total 890 ml Output Total 1100 ml Balance -210 ml Laboratory Tests 2 08/30/16 15:57: Bedside Glucose (Misc Panel) 195H 08/30/16 16:41: Bedside Glucose (Misc Panel) 177H 08/30/16 20:40: Bedside Glucose (Misc Panel) 189H 08/31/16 06:48: Anion Gap 5L, Blood Urea Nitrogen 80H, Creatinine 2.38H, Sodium Level 139, Potassium Level 5.0, Chloride Level 101, Carbon Dioxide Level 33H, Calcium Level 8.8, Glomerular Filtration Rate 21.8L 08/31/16 11:37: Bedside Glucose (Misc Panel) 256H Laboratory Tests 08/31/16 06:48 Calcium Level 8.8, Red Blood Count 3.99 L, Mean Corpuscular Volume 89.6, Mean Corpuscular Hemoglobin 28.1, Mean Corpuscular Hemoglobin Concent 31.4 L, Red Cell Distribution Width 14.8 H Microbiology 08/22/16 Blood Culture - Final, Complete NO GROWTH AFTER 5 DAYS 08/22/16 Blood Culture - Final, Complete NO GROWTH AFTER 5 DAYS 08/25/16 MRSA Screen - Final, Complete 08/22/16 MRSA Screen - Final, Complete 08/22/16 Urine Culture - Final, Complete AMBER CUEVAS MD Aug 31, 2016 15:13
[2016-08-31] MEDS ORDERED: NS 1,000 ML IV SCH (15:15)
[2016-08-31 16:00] VITALS: BP 135/72
--- NOTE | 2016-08-31 19:23 | IPNPDOC ---
[facility] Cardiology Progress Note Date of Service/Time The patient was seen on 08/31/16 at 19:10. Cardiology Progress Note Ms. Martinez is a 66 y/o female who initially presented in atrial fibrillation with rapid ventricular response with severe left ventricular systolic dysfunction. She also has pulmonary fibrosis/polymyositis. OBJECTIVE: PHYSICAL EXAMINATION: VITAL SIGNS: Please see below. GENERAL APPEARANCE: sitting in her chair, describes some SOB despite being on oxygen, otherwise no acute distress HEENT: NCAT, PERRLA, nares patent b/l, moist mucus membranes LUNGS: some wheezing appreciated in RUL, otherwise CTA, no rale or rhonchi appreciated HEART: normal s1 and s2, cannot appreciate any murmurs, rubs or gallops ABDOMEN: obese, soft, non-distended, non-tender, [id number] SKIN: intact EXTREMITIES: some pitting edema +1 B/L LE NEUROLOGICAL: no focal deficit appreciated PSYCHIATRIC: normal affect, appropriate LABORATORY WORK: Please see below. ASSESSMENT AND PLAN: Ms Martinez is surrounded by her family when visited today, they were apparently awaiting hospice to come and speak to them as the patient would like to go home. The patient is currently on amiodorone, metoprolol and hydralazine therapy and her heart rate has been stable between 60-90 BPM, although her blood pressure still seems to be a bit elevated at 130-160 and sometimes in the 190's /70 range. Although the amiodorone is not optimal in light of her pulmonary fibrosis, it does seem to be helping keep her rate controlled. Will make no further adjustments at this time and speak to family again tomorrow regarding their decision for hospice care. Vital Signs/I&O VS/I&O Vital Signs Date Time Temp Pulse Resp B/P Pulse Ox O2 Delivery O2 Flow Rate FiO2 08/31/16 16:00 97.5 92 18 135/72 98 Nasal Cannula 3.0 I&O- Last 24 Hours up to 6 AM 08/31/16 05:59 Intake Total 890 ml Output Total 1100 ml Balance -210 ml Laboratory Data 24H LABS Laboratory Tests 2 08/30/16 20:40: Bedside Glucose (Misc Panel) 189H 08/31/16 06:48: Anion Gap 5L, Blood Urea Nitrogen 80H, Creatinine 2.38H, Sodium Level 139, Potassium Level 5.0, Chloride Level 101, Carbon Dioxide Level 33H, Calcium Level 8.8, Glomerular Filtration Rate 21.8L 08/31/16 11:37: Bedside Glucose (Misc Panel) 256H 08/31/16 16:50: Bedside Glucose (Misc Panel) 92 CBC/BMP Laboratory Tests 08/31/16 06:48 Calcium Level 8.8, Red Blood Count 3.99 L, Mean Corpuscular Volume 89.6, Mean Corpuscular Hemoglobin 28.1, Mean Corpuscular Hemoglobin Concent 31.4 L, Red Cell Distribution Width 14.8 H FSBS Laboratory Tests Test 08/30/16 20:40 08/31/16 11:37 08/31/16 16:50 Range/Units Bedside Glucose (Misc Panel) 189 256 92 80-115 MG/DL Microbiology Microbiology 08/22/16 Blood Culture - Final, Complete NO GROWTH AFTER 5 DAYS 08/22/16 Blood Culture - Final, Complete NO GROWTH AFTER 5 DAYS 08/25/16 MRSA Screen - Final, Complete 08/22/16 MRSA Screen - Final, Complete 08/22/16 Urine Culture - Final, Complete GME ATTESTATION GME ATTESTATION My preceptor for this patient encounter was physically present in the building during the encounter and was fully available. As needed, all aspects of the patient interview, examination, medical decision making process, and medical care plan development were reviewed and approved by the preceptor. Preceptor is aware and concurs with the plan as stated in the body of this note and will attest to such by his/her cosignature. IVET BRADLEY DO Aug 31, 2016 19:23
[2016-08-31 20:00] VITALS: BP 142/67
[2016-08-31] MEDS: FAMOTIDINE 20 MG TAB PO SCH (20:51)
[2016-08-31] MEDS: LEVEMIR (INSULIN DETEMIR) 1 UNITS/0.01ML SC SCH (20:54)
[2016-08-31] MEDS: PERCOCET 5MG/325MG TAB PO PRN (21:27)
[2016-09-01 00:43] VITALS: BP 137/66
[2016-09-01 05:18] VITALS: BP 162/72
[2016-09-01 05:28] LABS: MEAN CORPUSCULAR HEMOGLOBIN 27.7 pg (27.0-33.0); MEAN CORPUSCULAR HGB CONC 31.6 g/dl (32.0-36.5); MEAN CORPUSCULAR VOLUME 87.9 fl (80.0-96.0); RED CELL DISTRIBUTION WIDTH 15.9 % (11.5-14.5); WHITE BLOOD COUNT 7.4 K/mm3 (4.0-10.0)
[2016-09-01] MEDS: ISOSORBIDE DIN (ISORDIL) 10 MG TAB PO SCH ×2 (05:31→13:32)
[2016-09-01] MEDS: **hydrALAZINE** 10 MG TAB PO SCH ×2 (05:31→13:32)
[2016-09-01] MEDS: SLF 3 ML SYR IV SCH ×2 (05:32→13:05)
[2016-09-01 05:38] LABS: CALCIUM LEVEL 8.3 MG/DL (8.8-10.2); CREATININE FOR GFR 1.54 MG/DL (0.55-1.02); POTASSIUM SERUM 4.4 MEQ/L (3.5-5.1)
[2016-09-01 06:40] VITALS: BP 138/72
[2016-09-01 08:00] VITALS: BP 131/73
[2016-09-01] MEDS: ALLOPURINOL 100 MG TAB PO SCH (08:05)
[2016-09-01] MEDS: FLUoxetine 20 MG CAP PO SCH (08:05)
[2016-09-01] MEDS: HumaLOG INSULIN (NovoLOG) PER UNIT SC SCH ×2 (08:05→12:05)
[2016-09-01] MEDS: AMIODARONE 200 MG TAB (PACERONE) PO SCH (08:05)
[2016-09-01] MEDS: ASPIRIN 81 MG ENTERIC TAB PO SCH (08:05)
[2016-09-01] MEDS: FERROUS SULFATE 325MG TAB PO SCH (08:05)
[2016-09-01] MEDS: predniSONE 10 MG TAB PO SCH (08:05)
[2016-09-01] MEDS: DABIGATRAN ETEXILATE 75 MG CAP (PRADAXA) PO SCH (08:05)
[2016-09-01] MEDS: ASCORBIC ACID 500 MG TAB PO SCH (08:05)
[2016-09-01] MEDS: MYCOPHENOLATE MOFETIL 250 MG CAP (J7517) PO SCH (08:05)
[2016-09-01] MEDS: PANTOPRAZOLE 40MG TAB (PROTONIX) PO SCH (08:05)
[2016-09-01] MEDS: METOPROLOL SUCC (TopROL XL) 100MG *XL* TAB PO SCH (08:06)
[2016-09-01] MEDS: METAMUCIL (PSYLLIUM) PACKET PO SCH (08:07)
[2016-09-01] MEDS: LIDOCAINE 5% OINT 30 GM TOP SCH (08:10)
[2016-09-01] MEDS ORDERED: HYDR10TAB PO (10:20)
[2016-09-01] MEDS ORDERED: AMIO20TA PO (10:20)
[2016-09-01] MEDS ORDERED: METO-209 PO (10:20)
[2016-09-01] MEDS ORDERED: PRAD75CA3 PO (10:20)
[2016-09-01] MEDS ORDERED: BACT800T5 PO (10:20)
[2016-09-01] MEDS ORDERED: ISOS10TA PO (10:20)
--- NOTE | 2016-09-01 11:33 | DSES ---
DATE OF ADMISSION: 08/22/2016 DATE OF DISCHARGE: DISCHARGE DIAGNOSIS: Atrial fibrillation with rapid ventricular response (RVR), new onset. SECONDARY DIAGNOSES: Pulmonary fibrosis. Severe systolic heart failure, new diagnosis. Acute kidney injury. Polymyositis. Type 2 diabetes. Gout. Gastroesophageal reflux disease (GERD). Depression. Obstructive sleep apnea (KASSY). Iron deficiency anemia. Pulmonary hypertension. Acute kidney injury. HOSPITAL COURSE: The patient is a 66-year-old female with a known history of pulmonary fibrosis who presented to the hospital with worsening shortness of breath and she was found to have new onset atrial flutter with 2:1 conduction. She was seen in consultation by Dr. Rosario of cardiology. She was admitted to the progressive care unit. Several different regimens were attempted to control her heart rate, however, optimal control was very difficult to achieve. The patient was actually started on amiodarone in the face of her pulmonary fibrosis as this was the only agent which seemed to be benefiting her. She was also started on metoprolol XL 100 mg twice a day. During her stay, she did have an echocardiogram that revealed a new severe systolic dysfunction. She had an echocardiogram which was found to have severe global LV systolic dysfunction with regional wall motion abnormalities consistent with her history of coronary artery disease. She also has a bioprosthetic aortic valve, moderate to severe pulmonary hypertension, with more severe pulmonary hypertension, a D-shaped appearance of the ventricular septum in diastole was noted. The patient was diuresed. Her respiratory status improved. Her heart rate was marginally improved. It was felt that her pulmonary fibrosis was driving her arrhythmia and that her arrhythmia resulted in tachyarrhythmia induced dilated cardiomyopathy. Given the underlying problem with pulmonary fibrosis, the patient said that she had been given a 5 year prognosis greater than 12 years ago. The issue of hospice was raised and discussed on several occasions with the patient and her family. The patient's sister is a former hospice nurse. The patient declined hospice. She declined group home placement, physical therapy or rehab placement. She insisted on returning home to care for her elderly father. At this time, physical therapy has cleared her to be in a wheelchair to the care of her family. SUBJECTIVE: Today, the patient tells me that she is feeling better. She tells me she is tired, but is eager to go home and she refuses to stay in the hospital any longer. OBJECTIVE: VITAL SIGNS: Temperature 95.6, pulse 83, respiratory rate 18, blood pressure 160/72, oxygen saturation 98% on 3 liters nasal cannula which is her baseline. GENERAL: She is an obese elderly female who appears older than stated age. She is lying back in bed at a 50 degree angle. She does not appear to be in acute distress. She is resting comfortably. HEENT: Cranial nerves II through XII are grossly intact. She has moist mucous membranes. No elevation of CVP. CARDIOVASCULAR EXAM: Irregularly irregular and tachycardic. RESPIRATORY EXAM: Fairly clear. She has fine crackles diffusely. ABDOMINAL EXAM: Benign. EXTREMITIES: No clubbing, cyanosis, or edema. LABORATORY STUDIES: WBC 7.4, hemoglobin 11.1, hematocrit 35.3, platelet count 207. Chemistry panel sodium 139, potassium 4.4, chloride 104, bicarb 27, BUN 69, creatinine 1.5 down from a peak of 2.3 during her stay. The patient during her stay did have a TSH within normal limits. She did have some mild troponinemia which peaked at 1.05. Microbiology: The patient had MRSA screens of the nares, which were negative. Blood cultures and urine cultures were also negative. Imaging as discussed above. ASSESSMENT/PLAN: This is a 66-year-old female with new onset difficult to control atrial flutter as well as new onset severe systolic heart failure. 1. New onset atrial flutter with rapid ventricular response (RVR). She has been started on amiodarone. I suspect she will have improved control which she achieves a more therapeutic level with amiodarone in her system. She is continued on metoprolol. Dr. Rosario's help is appreciated. He does not feel that she needs to remain in the hospital any further for further rate control. She has been anticoagulated with Pradaxa. Her new onset atrial flutter is likely being driven secondary to her severe pulmonary hypertension secondary to ongoing pulmonary fibrosis. 2. Severe systolic heart failure. Decompensated. The patient is more euvolemic at this time. She will be discharged home to resume her home diuretic dose. She has an ejection fraction which is significant depressed. I agree with Dr. Rosario that this is likely related to tachyarrhythmia induced cardiomyopathy. Dr. Rosario is optimistic that there may be some reversibility to this with controlling of her heart rate. However, at this time we have yet to achieve that. As such, I am mildly skeptical about her ability to recovery her systolic function. She did have some mild troponinemia and could consider outpatient ischemic workup if the patient is felt healthy enough to undergo any procedure. 3. Pulmonary fibrosis. The patient was continued on prednisone and CellCept. Her overall prognosis remains to be quite poor given that she has chronic respiratory failure, which is progressing, new onset heart failure which is quite severe as well as difficult to control arrhythmia. I think that she is appropriate for hospice and most likely within the last six months of her life. Hospice is coming to meet with the patient. She declined their services at this time insisting to return home. 4. Acute kidney injury, possibly related to Bactrim versus decompensated heart failure versus initiation of an LETITIA inhibitor. Bactrim was held during her stay. LETITIA inhibitor was discontinued and her diuretic was held. Her renal function is markedly improved today. Will restart her Bactrim at a much lower dose three times a week for PCP prophylaxis secondary to her immunocompromised state. Close followup with her primary care physician. She is not on an LETITIA inhibitor at this time. We will restart her diuretic at her home dose. She will likely need further monitoring of her renal functioning on the outpatient setting. 5. Polymyositis. As above noted, the patient is on CellCept and prednisone. 6. Type 2 diabetes. She is on sliding scale insulin and her fingersticks are controlled. 7. Gout. The patient is on allopurinol. 8. Gastroesophageal reflux disease (GERD). The patient is on Pepcid and Protonix. 9. Depression. The patient is on Prozac. 10. Obstructive sleep apnea (KASSY). The patient is compliant with CPAP. 11. Iron deficiency anemia. The patient is on ferrous sulfate. 12. Deep vein thrombosis (DVT) prophylaxis. The patient is on Pradaxa. DISPOSITION: The patient is being discharged home to the care of her family. She has declined any and all placements. She has declined hospice services. She is to followup with her primary care physician in seven days and Dr. Rosario within two weeks. ACTIVITY: She is wheelchair bound. Transfers with assistance and 24/7 care at home. DIET: Her diet is as prior to admission. She is to return to the emergency room should her symptoms worsen. DISCHARGE MEDICATIONS: - amiodarone 200 mg by mouth twice a day - Pradaxa 75 mg by mouth twice a day - hydralazine 10 mg every 8 hours - isosorbide dinitrate 10 mg every 8 hours - metoprolol succinate extended release 100 mg twice a day - allopurinol 100 mg twice a day - aspirin 81 mg daily - ferrous sulfate 325 mg twice a day - fluoxetine 20 mg daily - Lasix 40 mg daily - NovoLog sliding scale - Levemir 55 units at bedtime - CellCept 1 gram twice a day - Percocet 5/325 one tablet every 8 hours as needed for pain - prednisone 10 mg tablets daily - Metamucil one packet daily - Zantac 150 mg every evening - Carafate 10 mL by mouth three times a day - zoledronic acid 5 mg intravenously as directed yearly - Bactrim DS 800/160 three times a week Greater than 30 minutes was spent organizing disposition. The patient's overall clinical prognosis is quite poor. I would not be surprised to see her turn to the hospital in the very near future.
[2016-09-01 13:32] VITALS: BP 134/79
== END 2016-09-01 14:34 | disposition home health service (06) | DRG 314 ==
LOC: M ED 15:02 → M ED INP 17:50 → M ICU 21:30 → M PCU 08-25 16:21
PROVIDERS: ADMIT Hospitalist; ATTEND Internal Medicine
DX: I42.0 Dilated cardiomyopathy (principal); I50.21 Acute systolic (congestive) heart failure; I48.92 Unspecified atrial flutter; M33.21 Polymyositis with respiratory involvement; N17.9 Acute kidney failure, unspecified; J81.1 Chronic pulmonary edema; J96.10 Chronic respiratory failure, unspecified whether with hypoxia or hypercapnia; Z68.41 Body mass index [BMI] 40.0-44.9, adult; Z66 Do not resuscitate; E11.9 Type 2 diabetes mellitus without complications; I48.91 Unspecified atrial fibrillation; M10.9 Gout, unspecified; K59.00 Constipation, unspecified; E66.01 Morbid (severe) obesity due to excess calories; K21.9 Gastro-esophageal reflux disease without esophagitis; F32.9 Major depressive disorder, single episode, unspecified; M25.579 Pain in unspecified ankle and joints of unspecified foot; G47.33 Obstructive sleep apnea (adult) (pediatric); D50.9 Iron deficiency anemia, unspecified; J84.10 Pulmonary fibrosis, unspecified; I27.2 Other secondary pulmonary hypertension; Z99.89 Dependence on other enabling machines and devices; Z79.82 Long term (current) use of aspirin; Z79.52 Long term (current) use of systemic steroids; Z79.4 Long term (current) use of insulin; Z99.81 Dependence on supplemental oxygen; Z79.899 Other long term (current) drug therapy; Z88.0 Allergy status to penicillin; Z88.5 Allergy status to narcotic agent; Z88.1 Allergy status to other antibiotic agents; Z88.8 Allergy status to other drugs, medicaments and biological substances; Z90.49 Acquired absence of other specified parts of digestive tract; Z95.2 Presence of prosthetic heart valve